=== PATIENT | male | born 1960 | race Caucasian/White ===

== ENCOUNTER 2017-03-04 06:33 | Inpatient (IN) ==
[~2017-03-04 06:33] MED LIST: ASPIRIN 325 MG TABLET PO ONE; DIAZEPAM 5 MG TABLET PO ONE; MAGNESIUM SULF RIDER 2 GM in PREMIX 1 EACH IV PRN; POTASSIUM CHLORIDE RIDER 10 MEQ in PREMIX 1 EACH IV PRN; diphenhydrAMINE CAP 25 MG CAPSULE PO ONE
--- NOTE | 2017-03-04 07:14 | Event Note ---
Patient with anginal quality symptomatology of chest pain radiating to his neck and arm. Please see my full H&P done within the last 7 days. The patient is now for cardiac catheterization with possible percutaneous coronary mentioned. Our plan will be to approach the right radial. I again discussed this procedure with the patient and his reviewing the indications as well as how the procedure be carried out the risk. I discussed cardiac catheterization and percutaneous coronary intervention with the patient and available family. I reviewed with them the indications for the procedure and the basis of how the procedure would be carried out. I also reviewed with them the risk of the procedure which include but not necessarily limited to access site bleeding, bruising, pain, swelling or vascular injury that may require emergency vascular surgery, blood transfusion, or thrombin injection. Also discussed the possibility of stroke, myocardial infarction, arrhythmia which may require electrocardioversion, and the possibility of dye reaction that would require medical therapy. Also discussed the possibility of coronary artery injury, ruptured, closure or perforation that may require emergency bypass surgery. We also discussed the possibility of from a major complication. All questions were answered. They voice understanding and agree to proceed.
--- NOTE | 2017-03-04 07:16 | History and Physical Update ---
Sedation H&P Update - History and Physical H&P was reviewed, the patient examined and there: are no changes in the patients condition since last H&P was completed. - Dictation Physical: refer to scanned H&P - Physical Exam Mental Status: alert and oriented Heart: regular rate and rhythm Lung: clear to auscultation Abdomen: within normal limits Vitals: within normal limits History and Physical Changes: None - Sedation Plan for Sedation: moderate Patient Consent: Procedure disscussed with patient and patinet has consented., Risks and benefits were discussed with patient,including infection,, bleeding, injury to surrounding structures, seizure, temporary nerve, Patient understands and accepts potential risks/benefits and agrees to, proceed. ASA Class: III Airway Assessment: Class III: Soft palate, base of uvula visible
[2017-03-04] MEDS ORDERED: diphenhydrAMINE CAP 25 MG CAPSULE ONE (07:24)
[2017-03-04] MEDS ORDERED: ASPIRIN 325 MG TABLET ONE (07:24)
[2017-03-04] MEDS ORDERED: DIAZEPAM 5 MG TABLET ONE (07:25)
[2017-03-04] MEDS: SODIUM CHLORIDE 0.9% 1,000 ML IV SCH ×4 (07:28→23:42)
--- NOTE | 2017-03-04 07:55 | XRay Report ---
Exam: XR chest 1V portable Date: 03/04/2017 6:07 AM Indication: Respiratory preop evaluation left heart catheterization Comparison: None Technical: AP portable Findings: The heart, lungs, mediastinum and bony structures reveal no acute findings. Small calcification left base measures possibly 3.5 mm suggesting granuloma change. Impression: 1. Small granuloma left lung base 2. No other abnormalities noted at this time PROCEDURE INTERPRETED AT [facility] DEPARTMENT OF RADIOLOGY Final Report Signed by: Dr. Ancelmo Ortiz
[2017-03-04] MEDS ORDERED: LIDOCAINE 1% 20 ML VIAL ONE (08:02)
[2017-03-04] MEDS ORDERED: VERAPAMIL 5 MG/2 ML VIAL ONE (08:02)
[2017-03-04] MEDS ORDERED: MIDAZOLAM 2 MG/2 ML VIAL ONE (08:02)
[2017-03-04] MEDS ORDERED: fentaNYL 100 MCG/2 ML VIAL ONE (08:02)
[2017-03-04] MEDS ORDERED: NITROGLYCERIN DRIP 50 MG/250 ML BOTTLE IV ONE (08:02)
[2017-03-04] MEDS ORDERED: ENOXAPARIN 30 MG/0.3 ML SYRINGE ONE (08:22)
[2017-03-04] MEDS ORDERED: ONDANSETRON 4 MG/2 ML VIAL IV PRN (08:48)
[2017-03-04] MEDS ORDERED: NITROGLYCERIN SL 0.4 MG TABLET SL PRN (08:48)
[2017-03-04] MEDS ORDERED: ZALEPLON 5 MG CAPSULE PO PRN (08:48)
--- NOTE | 2017-03-04 08:48 | Operative Note ---
Date of procedure: 03/04/17 Procedure Preformed: Left heart catheterization with LV angiogram, coronary angiography right radial approach. Surgeon / Physician: Sheng Goodman Nuclear Logging Engineer: Amilcar Cantu Post-op diagnosis: same Findings: Left main stenosis greater than 60%, 90+% stenosis of the RCA. Please see full report for details. Specimens: none sent Estimated blood loss: minimal Condition: stable Anesthesia: local, conscious sedation Disposition: floor
[2017-03-04] MEDS: ASPIRIN EC 81 MG TABLET PO SCH (09:27)
[2017-03-04] MEDS ORDERED: GLUCAGON 1 MG VIAL IM PRN (10:07)
[2017-03-04] MEDS ORDERED: DEXTROSE 50% 25 GM/50 ML VIAL IV PRN (10:07)
--- NOTE | 2017-03-04 10:07 | Cardiothoracic Progress Note ---
Cardiothoracic Subjective Interval history: Patient is a 57-year-old man who had been well until about 4 weeks ago when he began having episodes of exertional chest pain. He was scheduled for an outpatient catheterization which was performed this morning and demonstrated critical three-vessel coronary disease. Patient was advised to have bypass surgery. I have reviewed the films and discussed the situation at length with the patient and his and I think they understand the situation and agree with bypass surgery is the best option. I scheduled him for surgery Thursday morning. He is to remain in the hospital until that time. Exam (Progress Note) - Constitutional Vitals: Period Temp Pulse Resp BP Sys/Schmitt Pulse Ox Last 24 Hr 97 F-97.9 F 58-63 16-18 136-186/81-88 98 Quality Measures - VTE Contraindication to Pharmacological VTE Prophylaxis: High Risk of Bleeding Specialty Discharge - Follow Up or Referrals
[2017-03-04] MEDS: CARVEDILOL 6.25 MG TABLET PO SCH ×2 (10:25→21:01)
[2017-03-04] MEDS: PANTOPRAZOLE 40 MG TABLET PO SCH (10:25)
--- NOTE | 2017-03-04 11:17 | Cardiac Catheterization ---
Date of Procedure:: 03/04/17 Pre-op Diagnosis: Exertional angina, coronary disease. Post-op diagnosis: same Procedure: LEFT HEART CATHETERIZATION History: 57-year-old man who has anginal quality symptomatology especially with exertion. Pre-Op diagnosis: Exertional angina, coronary disease. Postoperative diagnosis: High-grade multivessel coronary artery disease. Procedures: 1. Left heart catheterization. 2. Left ventricular angiogram. 3. Selective left and right coronary angiograms. 4. Left internal mammary artery angiogram but not well visualized. Equipment: Terumo 6 British radial glide arterial sheath, Terumo 6 British radial TIG 4.0 diagnostic. Large TR band. Medications: Preoperative Benadryl and Valium given by mouth. Lidocaine 1% local anesthesia 1 mls administered by myself. Intraprocedure patient received Versed 2 mgs IVP, fentanyl 100 mcgs IVP, Verapamil 5 mg/NTG 200 mcg in 5 ml NS. Complications: None immediate. Contrast: Omnipaque 125 milliliters. Description of procedure: After informed consent the patient was given preoperative medications and brought to the catheterization laboratory where their right groin and right anterior wrist and forearm was prepped and draped in usual fashion. IV sedation was then obtained after which local anesthesia with lidocaine was administered over the right radial artery. Using the double wall needle the radial artery was cannulated. Microguidewire was advanced through the cannula into the radial artery. We exchanged for the radial artery sheath that was advanced over the microguidewire. Guidewire was removed. The diagnostic 6 British TIG 4.0 catheter was advanced and used to cross the aortic valve and left ventricular pressures were measured with LVEDP. Left ventricular angiogram was then obtained in the right oblique view. Pressures were again measured in the left ventricle with pullback pressures were then measured in the aortic root. This same catheter was then used to cannulate the left and then right coronary arteries of which angiograms were obtained of each of these vessels in multiple projections. The angiograms were then reviewed. We attempted to do a flush left subclavian angiogram to see the left internal mammary artery but this was minimally visualized. The diagnostic catheter was then removed over the guidewire. The TR band was then placed in the usual fashion and hemostasis obtained. Hemodynamic data: LV 123/3, EDP 20; post angio LV 109/16 , EDP 24 ; AO root 101/68, mean 84. Left ventricular angiogram: Left ventricle overall with normal ejection fraction and function. Ejection fraction 60+%. No specific segmental wall motion normality is noted. No significant mitral regurgitation noted. Left main coronary artery angiogram: Left main coronary is a large caliber vessel that bifurcates in the LAD and circumflex arteries. This vessel is calcified. It has a high-grade 70% distal stenosis right at the bifurcation. This disease appears to involve the ostium of the LAD and circumflex arteries. Left anterior descending artery angiogram: Diffuse calcification especially proximally. The first diagonal is a medium caliber vessel with the second diagonal be small medium caliber vessel. The ostial LAD is probably involving the left main disease and is significant. There is luminal irregularities but less than 30% stenosis in the mid LAD. Circumflex artery angiogram: Circumflex artery proximal is a large caliber vessel. First obtuse marginal branch is a relatively medium large size vessel, larger myocardium. The second obtuse marginal branch is a medium caliber vessel. Obtuse marginal branches beyond this are small-caliber vessels. Significant size atrial branches are noted. There is some proximal calcification. The ostial portion of the circumflex artery is probably involved in the left main distal stenosis. Right coronary artery angiogram: RCA is a medium caliber dominant vessel. It gives rise to was a medium caliber PDA and a small medium caliber posterior lateral branches. The AV node artery has a takeoff the distal RCA. There is diffuse calcification in the proximal mid RCA. Left internal mammary artery angiogram: Left internal mammary is minimally visualized but approximately appears to be a significant size vessel. There is a proximal 90% stenosis and a mid stenosis of greater than 95%. Should be noted there are left to right collaterals to the PDA and posterior lateral branches. Impression: 1. Left ventricle is normal size and systolic function being 60+% ejection fraction. 2. LVEDP is mildly elevated at 20 mmHg. 3. At worse mild gradient across the aortic valve. 4. No significant mitral regurgitation demonstrated. 5. Right coronary artery is dominant with high-grade 90% proximal stenosis and a mid stenosis of greater than 95%. There is diffuse calcification 6. Left main coronary artery calcification and is large but with a distal 70% stenosis involving the bifurcation into the LAD and circumflex arteries. 7. LAD was some proximal mid calcification. There is some diffuse luminal irregularities but the ostium of the LAD is involved in the left main coronary disease. It is significant and probably 50+% stenosis. 8. Circumflex artery with some proximal calcification and is widely patent with the exception of the ostium which appears to be involved in the left main coronary artery disease. 9. EPSTEIN is patent proximally. His overall is not well visualized. Discussion: This patient need to be monitored post procedure. He will also need to be monitored for risk factor modification for his coronary disease. At this time though he needs to be evaluated for coronary bypass surgery with his high-grade coronary artery disease especially involving his left main coronary. CV surgery will be consulted for this. This was discussed with the patient and . Implants: None Anesthesia: local, moderate conscious sedation Surgeon / Physician: Sheng Goodman General Education Instructor: other (Aimlcar Cantu RN) Estimated blood loss: minimal Specimens: none sent Condition: stable Disposition: floor - Medications / Follow-up
--- NOTE | 2017-03-04 11:38 | Event Note ---
Patient doing well post cardiac catheterization. I discussed his catheterization findings with he and his reviewing the pictures I had printed off for them. Discussed the need for his bypass surgery and they are agreeable and understand. He will remain in the hospital because of his high risk of acute devastating infarction.
--- NOTE | 2017-03-04 15:19 | EKG Report ---
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
--- NOTE | 2017-03-04 16:23 | Sleep Medicine Consult ---
Assessment and Plan (1) Unspecified sleep apnea Status: Acute Assessment and plan: Mr. Matt has symptoms such as excessive daytime fatigue and sleepiness with an elevated [place] sleepiness score of 18 as well as a history of snoring that is loud and disruptive during his sleep. On physical exam he had a Mallampati class III exam and increased neck circumference of 18.5 inches. I discussed obstructive sleep apnea as well as the testing and treatments that are recommended. Also reviewed the correlation of underlying heart disease and untreated or undiagnosed sleep disorders, specifically obstructive sleep apnea. He verbalized understanding. He is scheduled to undergo coronary artery bypass grafting on Thursday. I recommend that he undergo sleep evaluation prior to his procedure. I will order a HSAT for tonight to determine if he is positive for obstructive sleep apnea. He verbalized understanding and wishes to proceed. Also of note, his daily alcohol consumption could be a contributing factor in his sleep and increases his likelihood of a sleep related disorders. Current Visit: Yes History of Present Illness Chief complaint: Fatigue and Sleepiness Daily History of present illness: Mr. Matt is a 57 year old male who was admitted for outpatient cardiac catheterization earlier today. He was found to have severe three-vessel cardiac disease and will require coronary artery bypass grafting scheduled for this Thursday. A sleep consult was requested by his music instructor to rule out underlying sleep disorders. He did have a positive screening for sleep disorders including a positive stop bang questionnaire and an elevated [place] sleepiness score of 18. He is alert sitting upright in bed following his heart catheterization. He is alone but states he is and has one daughter who is 26. He reports being a very "healthy" person and "does not go to the doctor ". He denies any significant medical history or daily medications prior to this admission. It took approximately 4 weeks of chest discomfort to get him to the emergency room. 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 In regards to sleep, he first denied any history of snoring but later stated that his "elbows" him frequently during sleep. He has never been told that his breathing was irregular during sleep. He goes to bed around 11:30 nightly and awakens around 7 or 8am. He feels non-refreshed most mornings. Due to his busy work schedule , he is unable to take daytime naps. He does experience drowsiness especially while sitting still. Throughout the night, he does have frequent sleep disruption for unknown reasons. He urinates up to 2 or 3 times per night. He does have some discomfort in his left leg specifically and has to move it frequently for symptom relief. He has a long history of snoring but quit smoking around 2004 following his 's breast cancer diagnosis. He does admit to daily alcohol use drinking between 6 and 12 cans of beer nightly. He often has a cocktail or whiskey along with his beer. He is optimistic about his upcoming heart surgery and is ready to feel better. Home Medications Medication Instructions Recorded Confirmed Type Aspirin EC Tab 81 mg PO DAILY 03/04/17 03/04/17 History Allergies Allergy/AdvReac Type Severity Reaction Status Date / Time No Known Allergies Allergy Verified 03/04/17 07:05 - Constitutional Constitutional: Present: daytime sleepiness, fatigue. Absent: night sweats, stops breathing during sleep - EENT Nose, mouth and throat: Absent: headache(s), nasal congestion - Cardiovascular Cardiovascular: Present: chest pain with activity, radiating jaw, neck or arm pain. Absent: dyspnea on exertion, palpitations - Respiratory Respiratory: Present: snoring. Absent: cough, dyspnea, wheezing - Gastrointestinal Gastrointestinal: Absent: abdominal pain, bloating, change in bowel habits, heartburn, nausea - Genitourinary Genitourinary: Present: urinary frequency (2-3 times per night) - Musculoskeletal Musculoskeletal: Absent: arthralgias, joint swelling, muscle weakness - Neurological Neurological: Absent: behavioral changes, syncope - Psychiatric Psychiatric: Absent: anxiety, depression - Endocrine Endocrine: Absent: cold intolerance, heat intolerance Exam (Pulmonay) H&P - Constitutional Vitals: Period Temp Pulse Resp BP Sys/Schmitt Pulse Ox Last 24 Hr 97 F-97.9 F 57-65 16-20 129-186/80-93 98 General appearance: normal weight - Head Head exam: Present: normocephalic, atraumatic - Eye Pupils: Present: TERESA - ENT ENT exam: Present: other (Mallampati class III) - Expanded ENT Exam ENT Exam Mouth exam: Present: moist Throat exam: Absent: post pharyngeal edema, post pharyngeal erythema - Neck Neck exam: Absent: lymphadenopathy, thyromegaly - Respiratory Respiratory exam: Present: clear to auscultation bilaterally. Absent: rales, rhonchi, wheezes - Cardiovascular Cardiovascular exam: Present: regular rate and rhythm - GI/Abdominal GI/Abdominal exam: Present: normal bowel sounds. Absent: distended, organomegaly, tenderness - Extremities Exam Extremities exam: Present: normal capillary refill, full ROM. Absent: edema - Neurological Exam Neurological exam: Present: alert, oriented X3 - Psychiatric Psychiatric exam: Present: normal affect, normal mood - Skin Skin exam: Present: warm, dry Medical,Surgical,& Family Hx - Medical History Cardio: History of: CAD, Hypertension Neurology: No history of: Seizures Endocrine: History of: Dyslipidemia - Surgical History Cardiac Surgeries: Sugical HX of: Cardiac Catheterization Abdominal Surgeries: Surgical HX of: Hernia Repair - Family History Family History: Reports;: Family Diabetes - Social History Smoking Status: Former smoker Frequency of Alcohol Use: Frequently (reports drinking between 6-12 cans of beer daily) Type of Drug Use: None Marital Status: Lives With:: Children Quality Measures - VTE Contraindication to Pharmacological VTE Prophylaxis: High Risk of Bleeding Specialty Discharge - Follow Up or Referrals
[2017-03-04] MEDS: ATORVASTATIN 40 MG TABLET PO SCH (21:01)
[2017-03-05] MEDS: CHLORHEXIDINE 0.12% ORAL RINSE 60 ML BOTTLE SWISH/SPIT SCH ×3 (02:49→20:31)
[2017-03-05 03:46] LABS: ABG Base Excess 0.5 MMOL/L (-2.5-2.5); ABG HCO3 24.8 MMOL/L (20-26); ABG Oxygen Saturation 96.1 % (95-100); ABG PCO2 38.5 MM HG (35-48); ABG PH 7.426 (7.35-7.45); ABG PO2 84.3 MM HG (80-95); ABG TCO2 25.9 MMOL/L (23-27); Allen Test Positive; Pt O2 Delivery Device Room Air
[2017-03-05 06:07] LABS: Basophils # 0.1 10*3/uL (0.0-0.2); Basophils % 0.7 % (0.0-0.8); Eosinophils # 0.3 10*3/uL (0.0-0.87); Eosinophils % 4.1 % (0.00-10.9); Hematocrit 35.7 VOL% (42.0-52.0); Hemoglobin 12.5 GM/DL (14.0-18.0); Immature Granulocytes % 0.3 %; Immature Granulocytes Absolute 0.02 #; Lymphocytes # 1.8 10*3/uL (1.4-4.0); Lymphocytes % 24.9 % (21.2-54.2); Mean Corpuscular Hemoglobin 32 PG (27-34); Mean Corpuscular Volume 91.3 FL (87-102); Mean Platelet Volume 9.8 FL (9.6-12.0); Monocytes # 0.7 10*3/uL (0.11-0.8); Monocytes % 10.2 % (1.7-12.7); Neutrophils # 4.2 10*3/uL (1.4-7.4); Neutrophils % 59.8 % (38.7-73.9); Platelet Count 221 T/CUMM (130-400); Red Blood Count 3.91 MC/CUMM (3.8-5.5); Red Cell Distribution Width 11.7 % (9.3-17.3)
[2017-03-05 06:39] LABS: Calcium 8.2 MG/DL (8.5-10.1); Magnesium 2.3 MG/DL (1.8-2.4); Osmolality,Calculated 281.1 MOS/KG (273-304); Potassium 3.9 MMOL/L (3.5-5.1)
[2017-03-05 06:40] LABS: Albumin 2.9 G/DL (3.4-5.0); Bilirubin,Total 0.5 MG/DL (0.2-1.0); Calcium 8.7 MG/DL (8.5-10.1); Potassium 3.9 MMOL/L (3.5-5.1); Risk Ratio 2.94; Total Protein 5.9 G/DL (6.4-8.3); VLDL CHOLESTEROL 16.6 MG/DL
--- NOTE | 2017-03-05 07:21 | EKG Report ---
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
[2017-03-05] MEDS: SODIUM CHLORIDE 0.9% 1,000 ML IV SCH ×2 (07:31→10:35)
--- NOTE | 2017-03-05 07:46 | XRay Report ---
Exam: XR chest 2V Date: 03/05/2017 4:00 AM Indication: Coronary artery disease Comparison: 03/04/2017 Technical: PA lateral Findings: External cardiac leads are present. The heart, lungs, mediastinum and bony structures are intact. Impression: 1. No acute cardiopulmonary pathology PROCEDURE INTERPRETED AT [facility] DEPARTMENT OF RADIOLOGY Final Report Signed by: Dr. Ancelmo Ortiz
--- NOTE | 2017-03-05 08:29 | Cardiology Progress Note ---
Cardiology - PN: Subj Interval history: Cardiology note 57-year-old man with severe left main and RCA disease by cath yesterday. Ejection fraction 60%. No pain. Telemetry benign. Right radial pulse 2+ without hematoma Regular rhythm no murmur or gallop Clear lungs Abdomen benign Lab data today White count 7.0 hemoglobin 12.5 hematocrit 35.7 Sodium 142 potassium 3.9 chloride 110 CO2 24 BUN 13 creatinine 0.60 glucose 87 Impression Severe three-vessel CAD involving left main, LAD and right coronary with EF 60% Hyperlipidemia Obesity Obstructive sleep apnea suspected Plan Lipitor 40 mg daily Coreg 6.25 mg twice daily Aspirin 81 mg daily Protonix Sleep study evaluation CABG tomorrow Exam (Progress Note) - Constitutional Vitals: Period Temp Pulse Resp BP Sys/Schmitt Pulse Ox Last 24 Hr 97.0 F-98.0 F 57-65 18-20 127-152/72-93 92-97 Result/EKG - Labs CBC & BMP: 03/05/17 05:12 03/05/17 05:12 Labs: Laboratory Results - last 24 hr 03/05/17 03/05/17 03/05/17 03:35 05:12 05:12 WBC 7.0 RBC 3.91 Hgb 12.5 L Hct 35.7 L MCV 91.3 MCH 32 MCHC 35.0 RDW 11.7 Plt Count 221 MPV 9.8 Neut % (Auto) 59.8 Lymph % (Auto) 24.9 [place] % (Auto) 10.2 Eos % (Auto) 4.1 Baso % (Auto) 0.7 Neut # (Auto) 4.2 Lymph # (Auto) 1.8 [place] # (Auto) 0.7 Eos # (Auto) 0.3 Baso # (Auto) 0.1 Immature Gran % 0.3 Nucleated RBC % 0.0 Immature Gran # 0.02 Nucleated RBCs # 0.00 ABG pH 7.426 ABG pCO2 38.5 ABG pO2 84.3 ABG HCO3 24.8 ABG Total CO2 25.9 ABG O2 Saturation 96.1 ABG Base Excess 0.5 FiO2 21.00 Sodium Potassium Chloride Carbon Dioxide Anion Gap BUN Creatinine GFR Calculation BUN/Creatinine Ratio Glucose Calculated Osmolality Calcium Magnesium Total Bilirubin AST ALT Alkaline Phosphatase Total Protein Albumin Globulin Albumin/Globulin Ratio Triglycerides 83 Cholesterol 159 LDL Cholesterol 82.0 VLDL Cholesterol 16.6 HDL Cholesterol 54 Heart Disease Risk Ratio 2.94 Blood Type Antibody Screen Crossmatch 03/05/17 03/05/17 03/05/17 05:12 05:12 05:12 WBC RBC Hgb Hct MCV MCH MCHC RDW Plt Count MPV Neut % (Auto) Lymph % (Auto) [place] % (Auto) Eos % (Auto) Baso % (Auto) Neut # (Auto) Lymph # (Auto) [place] # (Auto) Eos # (Auto) Baso # (Auto) Immature Gran % Nucleated RBC % Immature Gran # Nucleated RBCs # ABG pH ABG pCO2 ABG pO2 ABG HCO3 ABG Total CO2 ABG O2 Saturation ABG Base Excess FiO2 Sodium 143 142 Potassium 3.9 3.9 Chloride 109 H 110 H Carbon Dioxide 25 24 Anion Gap 12.9 11.9 BUN 13 13 Creatinine 0.50 L 0.60 L GFR Calculation 159 148 BUN/Creatinine Ratio 26.00 H 21.00 H Glucose 89 87 Calculated Osmolality 283.0 281.1 Calcium 8.7 8.2 L Magnesium 2.3 Total Bilirubin 0.50 AST 13 ALT 20 Alkaline Phosphatase 66 Total Protein 5.9 L Albumin 2.9 L Globulin 3.0 Albumin/Globulin Ratio 0.9 L Triglycerides Cholesterol LDL Cholesterol VLDL Cholesterol HDL Cholesterol Heart Disease Risk Ratio Blood Type O NEGATIVE Antibody Screen Negative Crossmatch See Detail 03/05/17 Unknown WBC RBC Hgb Hct MCV MCH MCHC RDW Plt Count MPV Neut % (Auto) Lymph % (Auto) [place] % (Auto) Eos % (Auto) Baso % (Auto) Neut # (Auto) Lymph # (Auto) [place] # (Auto) Eos # (Auto) Baso # (Auto) Immature Gran % Nucleated RBC % Immature Gran # Nucleated RBCs # ABG pH ABG pCO2 ABG pO2 ABG HCO3 ABG Total CO2 ABG O2 Saturation ABG Base Excess FiO2 Sodium Potassium Chloride Carbon Dioxide Anion Gap BUN Creatinine GFR Calculation BUN/Creatinine Ratio Glucose Calculated Osmolality Calcium Magnesium Total Bilirubin AST ALT Alkaline Phosphatase Total Protein Albumin Globulin Albumin/Globulin Ratio Triglycerides Cholesterol LDL Cholesterol VLDL Cholesterol HDL Cholesterol Heart Disease Risk Ratio Blood Type O NEGATIVE Antibody Screen Crossmatch Quality Measures - VTE Contraindication to Pharmacological VTE Prophylaxis: High Risk of Bleeding Specialty Discharge - Follow Up or Referrals
[2017-03-05] MEDS: CARVEDILOL 6.25 MG TABLET PO SCH ×2 (09:17→20:30)
[2017-03-05] MEDS: ASPIRIN EC 81 MG TABLET PO SCH (09:17)
[2017-03-05] MEDS: PANTOPRAZOLE 40 MG TABLET PO SCH (09:17)
[2017-03-05] MEDS ORDERED: CEFUROXIME INJ 1,500 MG in SODIUM CHLORIDE 0.9% 100 ML IV ONE (10:07)
[2017-03-05] MEDS: CHLORHEXIDINE 4% SOLN 118 ML BOTTLE TOP SCH ×2 (16:10→20:32)
[2017-03-05] MEDS: ATORVASTATIN 40 MG TABLET PO SCH (20:30)
[2017-03-06] MEDS ORDERED: TISSUE ADHESIVE 1 EACH APPLICATOR TOP ONE (04:44)
[2017-03-06] MEDS ORDERED: PAPAVERINE 60 MG/2 ML VIAL ONE (04:44)
[2017-03-06] MEDS ORDERED: VANCOMYCIN 1,000 MG VIAL ONE (04:45)
[2017-03-06] MEDS ORDERED: LORazepam 1 MG TABLET PO ONE ×2 (05:00→05:30)
[2017-03-06] MEDS ORDERED: FAMOTIDINE 20 MG TABLET PO ONE ×2 (05:00→05:30)
[2017-03-06] MEDS ORDERED: CEFUROXIME INJ 1,500 MG in SODIUM CHLORIDE 0.9% 100 ML IV ONE ×2 (05:00→06:00)
[2017-03-06] MEDS: PANTOPRAZOLE 40 MG TABLET PO SCH ×2 (05:11→09:00)
[2017-03-06] MEDS: CARVEDILOL 6.25 MG TABLET PO SCH ×3 (05:11→21:18)
[2017-03-06 07:26] LABS: ABG Base Excess -0.6 MMOL/L (-2.5-2.5); ABG Oxygen Saturation 98.6 % (95-100); ABG PH 7.455 (7.35-7.45); ABG TCO2 19.7 MMOL/L (23-27); Glucose Heart Surgery 110 MG/DL (74-106); Hematocrit Heart Surgery 38.5 PERCENT (42-52); Hemoglobin Heart Surgery 12.5 G/DL (14.0-18.0); Ionized Calcium Arterial 1.17 MMOL/L (1.21-1.46); PH Patient Temp Arterial 7.455; Patient Temperature 37 CELCIUS; Potassium Heart/CVR 3.7 MMOL/L (3.5-5.1); Sodium Heart/CVR 136 MMOL/L (135-145)
[2017-03-06 07:32] LABS: Apearance,Urine CLEAR (Clear); Bilirubin,Urine Negative (Negative); Blood, Urine Negative (Negative); Glucose,Urine (UA) Negative (Negative); Ketones,Urine 5 mg/dL (Negative); Mucus,Urine Occasional /LPF (Occasional); Nitrite,Urine Negative (Negative); Protein,Urine Negative; RBC,Urine 1 /HPF (0-4); Urine Color Yellow (Yellow); Urine Specific Gravity 1.017 (1.001-1.035); Urine Urobilinogen < 2.0 EU/DL (0.2-1.0); WBC,Urine 3 /HPF (0-6)
--- NOTE | 2017-03-06 08:17 | Anesthesia Procedures ---
Anesthesia Procedures - Central Venous Insert Monitors Applied: pulse oximetry, EKG, BP cuff, oxygen via MSBT: pulse oximetry, EKG, BP cuff, oxygen via Procedure: after sterile technique was performed as outlined above, , ultrasound guidance was used to identify vessel, 18G introducer needle was passed into vessel under direct visualizatio, triple lumen catheter was passed over guidewire without difficulty, catheter sutured into place and the ports flushed with NS/hepflush, sterlie dressing applied including the antibiotic disc , vital signs were stable throughout procedure, no apparent complications were noted (skin prept with chloraprep) Ultrasound used: identify patency vessel, visualize needle entry to vessel Vein Cannulated: right internal juglar
[2017-03-06 08:43] LABS: Hematocrit Heart Surgery 27.2 PERCENT (42-52); Hemoglobin Heart Surgery 8.7 G/DL (14.0-18.0); PH Patient Temp Venous 7.462; PO2 Patient Temp Venous 35.5 MM HG; Potassium Heart/CVR 4.1 MMOL/L (3.5-5.1); VBG Base Excess 1.5 MEQ/L (0-4); VBG HCO3 25.4 MEQ/L (24-28); VBG Oxygen Saturation 77.4 %; VBG PCO2 38.6 MMHG (41-51); VBG PH 7.432; VBG PO2 40.8 MMHG (17-40)
[2017-03-06] MEDS ORDERED: NITROPRUSSIDE 50 MG/2 ML VIAL ONE (08:45)
[2017-03-06] MEDS ORDERED: POTASSIUM CHLORIDE RIDER 100 ML IV ONE (08:45)
[2017-03-06] MEDS ORDERED: PHENYLEPHRINE DRIP 40 MG/250 ML PREMIX IV ONE (08:45)
[2017-03-06] MEDS ORDERED: CALCIUM CHLORIDE 1,000 MG/10 ML SYRINGE IV ONE (08:45)
[2017-03-06] MEDS: CHLORHEXIDINE 0.12% ORAL RINSE 60 ML BOTTLE SWISH/SPIT SCH ×3 (09:00→21:06)
[2017-03-06] MEDS: CHLORHEXIDINE 4% SOLN 118 ML BOTTLE TOP SCH (09:00)
[2017-03-06] MEDS: ASPIRIN EC 81 MG TABLET PO SCH (09:00)
[2017-03-06 09:27] LABS: Hematocrit Heart Surgery 33.9 PERCENT (42-52); PCO2 Patient Temp Venous 34.4 MM HG; PH Patient Temp Venous 7.46; PO2 Patient Temp Venous 34.4 MM HG; Potassium Heart/CVR 3.7 MMOL/L (3.5-5.1); VBG Base Excess 1.1 MEQ/L (0-4); VBG Oxygen Saturation 77.6 %; VBG PCO2 39.8 MMHG (41-51); VBG PH 7.416; VBG PO2 42.5 MMHG (17-40)
[2017-03-06 10:04] LABS: ABG Base Excess 0.5 MMOL/L (-2.5-2.5); ABG HCO3 22.8 MMOL/L (20-26); ABG Oxygen Saturation 98.2 % (95-100); ABG PH 7.513 (7.35-7.45); ABG PO2 227.5 MM HG (80-95); ABG TCO2 23.7 MMOL/L (23-27); Glucose Heart Surgery 148 MG/DL (74-106); Hemoglobin Heart Surgery 10.5 G/DL (14.0-18.0); Ionized Calcium Arterial 1.34 MMOL/L (1.21-1.46); PH Patient Temp Arterial 7.513; PO2 Patient Temp Arterial 227.5 MM HG; Patient Temperature 37 CELCIUS; Potassium Heart/CVR 3.8 MMOL/L (3.5-5.1); Sodium Heart/CVR 136 MMOL/L (135-145)
[2017-03-06] MEDS ORDERED: DEXTROSE 5% KCL 20 MEQ 20 MEQ/1,000 ML BAG IV ONE (10:15)
[2017-03-06] MEDS ORDERED: PHENYLEPHRINE DRIP 20 MG/250 ML PREMIX IV ONE (10:15)
[2017-03-06] MEDS ORDERED: MAGNESIUM SULFATE 1 GM/2 ML VIAL ONE (10:15)
[2017-03-06] MEDS ORDERED: methylPREDNISolone SOD SUC 1,000 MG/8 ML VIAL ONE (10:15)
[2017-03-06] MEDS ORDERED: PROTAMINE SULFATE 250 MG/25 ML VIAL IV ONE (10:15)
[2017-03-06] MEDS ORDERED: HEPARIN 10,000 UNIT/10 ML VIAL ONE (10:15)
[2017-03-06] MEDS ORDERED: SODIUM BICARBONATE 50 MEQ/50 ML SYRINGE IV ONE (10:15)
[2017-03-06] MEDS ORDERED: PROTAMINE SULFATE 50 MG/5 ML VIAL IV ONE ×3 (10:16→11:10)
[2017-03-06] MEDS ORDERED: POTASSIUM CHLORIDE 20 MEQ/10 ML VIAL ONE (10:16)
[2017-03-06] MEDS ORDERED: FUROSEMIDE 20 MG/2 ML VIAL ONE (10:16)
[2017-03-06] MEDS ORDERED: MANNITOL 12.5 GM/50 ML VIAL IV ONE (10:16)
[2017-03-06] MEDS: SODIUM CHLORIDE 0.9% 1,000 ML IV SCH (10:30)
[2017-03-06] MEDS ORDERED: MIDAZOLAM 2 MG/2 ML VIAL IV PRN (10:56)
[2017-03-06] MEDS ORDERED: CALCIUM CHLORIDE 1,000 MG/10 ML SYRINGE IV PRN (10:56)
[2017-03-06] MEDS ORDERED: MAGNESIUM SULF RIDER 4 GM in PREMIX 1 EACH IV PRN (10:56)
[2017-03-06] MEDS ORDERED: VECURONIUM 10 MG VIAL IV PRN ×2 (10:56)
[2017-03-06] MEDS ORDERED: ACETAMINOPHEN 650 MG SUPP RECTAL PRN (10:56)
[2017-03-06] MEDS ORDERED: MORPHINE 2 MG/1 ML SYRINGE IV PRN (10:56)
[2017-03-06] MEDS ORDERED: MORPHINE 10 MG/1 ML VIAL IV PRN (10:56)
[2017-03-06] MEDS ORDERED: LACTATED RINGERS 250 ML IV PRN (10:56)
[2017-03-06] MEDS ORDERED: MIDAZOLAM 10 MG/2 ML VIAL IV PRN (10:56)
[2017-03-06] MEDS ORDERED: INSULIN REGULAR 100 UNIT/ML IV ONE ×2 (10:56→11:30)
[2017-03-06] MEDS ORDERED: ONDANSETRON 4 MG/2 ML VIAL IV PRN (10:56)
[2017-03-06] MEDS ORDERED: POTASSIUM CHLORIDE RIDER 10 MEQ in PREMIX 1 EACH IV PRN (10:56)
[2017-03-06] MEDS ORDERED: INSULIN REGULAR 100 UNIT/ML IV PRN (10:56)
[2017-03-06] MEDS ORDERED: NITROPRUSSIDE 100 MG in DEXTROSE 5% 250 ML IV PRN (10:56)
[2017-03-06] MEDS ORDERED: MAGNESIUM SULF RIDER 2 GM in PREMIX 1 EACH IV PRN (10:56)
[2017-03-06] MEDS ORDERED: DEXTROSE 50% 25 GM/50 ML VIAL IV PRN ×2 (10:56)
[2017-03-06] MEDS: INSULIN REGULAR DRIP 100 ML IV SCH (11:00)
[2017-03-06] MEDS: SODIUM CHLORIDE 0.45% 1,000 ML IV SCH ×2 (11:00)
[2017-03-06] MEDS: PHENYLEPHRINE DRIP 40 MG/250 ML PREMIX IV PRN (11:00)
--- NOTE | 2017-03-06 11:02 | Anesthesia Post-Op ---
Anesthesia Post OP - Post Ansesthetic Evaluation Patient seen in post op: Yes Resp: within normal limits (pt remains on vent) CV: within normal limits Mental: within normal limits (pt remains sedate) Temp: within normal limits [id number]-[id number]-[id number]: within normal limits Nausea and Vomiting: within normal limits Pain: within normal limits
--- NOTE | 2017-03-06 11:05 | Operative Note ---
Date of procedure: 03/06/17 Pre-op diagnosis: Coronary artery disease Post-op diagnosis: same Procedure: Procedure: Coronary bypass grafting 3 with saphenous vein graft to the obtuse marginal and right coronary arteries and an internal mammary graft to the anterior descending coronary artery. Findings: Patient is 57-year-old man who presented with substernal chest pain and cardiac catheterization demonstrating critical three-vessel coronary disease. Sinus surgery left ventricular function was noted to be normal and saphenous vein grafts were placed to a large right coronary artery and a large intermediate coronary artery which was free of disease at the site of anastomosis. The anterior descending was grafted with a left internal mammary and the anterior descending had moderate disease at the site of anastomosis. Patient tolerated procedure well was returned to recovery in satisfactory condition. Procedure: Patient was brought to the operating room placed in the operating table in the supine position. After satisfactory induction of general anesthesia the chest abdomen and legs were prepped and draped in sterile fashion and the greater saphenous vein was harvested from the left lower leg and prepared as an arterial graft. Incision in the leg was closed with 3-0 subcutaneous Monocryl and 3-0 subcuticular Monocryl. A standard sternotomy incision was made and the sternum was divided and the heart suspended in a pericardial cradle. Left internal mammary artery was dissected free and prepared as an arterial graft. Patient was prepared for cardiopulmonary bypass with systemic heparinization cannulation of the ascending aorta and right atrium. Cardiopulmonary bypass was begun and the aorta was crossclamped and the heart arrested with cardioplegia solution injected into the aortic root. Heart was protected during the period of crossclamping with topical saline slush. Distal anastomoses were constructed as noted above and then the aorta was unclamped reestablishing cardiac action. Proximal anastomoses were constructed between the inflow ends of the saphenous vein graft in the ascending aorta. Following this the patient was weaned from cardiopulmonary bypass without difficulty and the heparin effect reversed with protamine. Decannulation was carried out in a defects in the ascending aorta and right atrium closed with 3-0 Prolene. The operative field was inspected for hemostasis and this was considered adequate the incision was closed with interrupted stainless steel wire and the sternum and 0 Monopril in the presternal fascia. Skin was closed with subcuticular 3-0 Monocryl. Sterile dressings were applied patient was returned to recovery in satisfactory condition. 2 chest tubes were left in the anterior mediastinum and both were brought out through separate stab incisions. Anesthesia: TANIA Surgeon / Physician: Keith Tuttle Estimated blood loss: other (Unable to determine because of cardiopulmonary bypass) Condition: stable Disposition: ICU Results - Labs CBC & BMP: 03/06/17 10:00 03/05/17 05:12 Discharge Plan - Discharge Medications No Action Aspirin EC Tab 81 mg PO DAILY - Follow Up or Referral - Forms/Instructions Instructions: Left Heart Catheterization (DC), Heart Healthy Diet (GEN), Coronary Intravascular Stent Placement, Regional Project Manager (GEN)
--- NOTE | 2017-03-06 11:08 | Anesthesia Procedures ---
Anesthesia Procedures - Arterial Line Time out performed arterial line: Yes Size (Gauge): 20 Technique used arterial line: guide wire technique Post-Procedure: line sutured into place Patient tolerated procedure arterial line: well Complications art line: none Site: left
[2017-03-06] MEDS ORDERED: SUFentanil 250 MCG/5 ML AMP ONE ×2 (11:09)
[2017-03-06] MEDS ORDERED: SEVOFLURANE 1 UNIT/15 MINUTE INH ONE (11:09)
[2017-03-06] MEDS ORDERED: MIDAZOLAM 10 MG/2 ML VIAL ONE ×2 (11:09→11:10)
[2017-03-06] MEDS ORDERED: AMINOCAPROIC ACID 5,000 MG/20 ML VIAL IV ONE ×2 (11:10→11:23)
[2017-03-06] MEDS ORDERED: CALCIUM CHLORIDE 1,000 MG/10 ML VIAL IV ONE (11:23)
[2017-03-06] MEDS ORDERED: VECURONIUM 10 MG VIAL IV ONE (11:23)
[2017-03-06] MEDS: ALBUMIN 5% 12.5 GM in PREMIX 1 EACH IV PRN ×5 (11:24→16:15)
[2017-03-06 11:26] LABS: ABG HCO3 25.2 MMOL/L (20-26); ABG Oxygen Saturation 94.5 % (95-100); ABG PH 7.461 (7.35-7.45); ABG PO2 68.6 MM HG (80-95); ABG TCO2 21.6 MMOL/L (23-27); Basophils % 0.3 % (0.0-0.8); Eosinophils # 0.3 10*3/uL (0.0-0.87); Eosinophils % 2.9 % (0.00-10.9); Glucose Heart Surgery 122 MG/DL (74-106); Hematocrit 32.5 VOL% (42.0-52.0); Hematocrit Heart Surgery 35.7 PERCENT (42-52); Hemoglobin 11.6 GM/DL (14.0-18.0); Hemoglobin Heart Surgery 11.6 G/DL (14.0-18.0); Immature Granulocytes % 0.5 %; Immature Granulocytes Absolute 0.04 #; Lymphocytes # 2.3 10*3/uL (1.4-4.0); Lymphocytes % 26.4 % (21.2-54.2); Mean Corpuscular HGB Conc 35.7 GM/DL (32-36); Mean Corpuscular Hemoglobin 32 PG (27-34); Mean Corpuscular Volume 89.8 FL (87-102); Mean Platelet Volume 9.5 FL (9.6-12.0); Monocytes # 0.3 10*3/uL (0.11-0.8); Monocytes % 2.9 % (1.7-12.7); Neutrophils # 5.8 10*3/uL (1.4-7.4); Platelet Count 161 T/CUMM (130-400); Potassium Heart/CVR 3.2 MMOL/L (3.5-5.1); Red Blood Count 3.62 MC/CUMM (3.8-5.5); Red Cell Distribution Width 11.4 % (9.3-17.3); White Blood Count 8.7 T/CUMM (4-12)
[2017-03-06 11:39] LABS: INR 1.2; PT Patient Result 13.2 SECS; Partial Thromboplastin Time 29.1 SECS (0-40)
--- NOTE | 2017-03-06 11:57 | Cardiothoracic Progress Note ---
Cardiothoracic Subjective Interval history: [place]-Jennifer catheter placed via the right subclavian vein. Exam (Progress Note) - Constitutional Vitals: Period Temp Pulse Resp BP Sys/Schmitt Pulse Ox Last 24 Hr 97.4 F-98.1 F 59-66 18-20 130-158/74-83 94-98 Result/EKG - Labs CBC & BMP: 03/06/17 10:56 03/05/17 05:12 Labs: Laboratory Results - last 24 hr 03/05/17 03/06/17 03/06/17 05:12 05:10 07:24 WBC RBC Hgb Hct MCV MCH MCHC RDW Plt Count 176 D MPV Neut % (Auto) Lymph % (Auto) [place] % (Auto) Eos % (Auto) Baso % (Auto) Neut # (Auto) Lymph # (Auto) [place] # (Auto) Eos # (Auto) Baso # (Auto) Immature Gran % Nucleated RBC % Immature Gran # Nucleated RBCs # INR PT Patient/Control Mix Circ Anticoag PTT Patient Temperature ABG pH ABG pH at Pt Temp ABG pCO2 ABG pCO2 at Pt Temp ABG pO2 ABG pO2 at Pt Temp ABG HCO3 ABG Total CO2 ABG O2 Saturation ABG Base Excess ABG Sodium VBG pH VBG pCO2 VBG pO2 VBG HCO3 VBG Total CO2 VBG O2 Saturation VBG Base Excess Hemoglobin Hematocrit Potassium Glucose Ionized Calcium FiO2 POC Glucose 101 Venous Ioniz Calcium Urine Color Urine Appearance Urine pH Ur Specific [place] Urine Protein Urine Glucose (UA) Urine Ketones Urine Blood Urine Nitrate Urine Bilirubin Urine Urobilinogen Urine Leukocytes Urine RBC Urine WBC Urine Mucus Ur Culture Indicated? Blood Type O NEGATIVE Antibody Screen Negative Crossmatch See Detail 03/06/17 03/06/17 03/06/17 07:24 07:25 08:40 WBC RBC Hgb Hct MCV MCH MCHC RDW Plt Count MPV Neut % (Auto) Lymph % (Auto) [place] % (Auto) Eos % (Auto) Baso % (Auto) Neut # (Auto) Lymph # (Auto) [place] # (Auto) Eos # (Auto) Baso # (Auto) Immature Gran % Nucleated RBC % Immature Gran # Nucleated RBCs # INR PT Patient/Control Mix Circ Anticoag PTT Patient Temperature 37 35 ABG pH 7.455 H ABG pH at Pt Temp 7.455 7.462 ABG pCO2 32.0 L ABG pCO2 at Pt Temp 32.0 35.0 ABG pO2 378.0 H ABG pO2 at Pt Temp 378.0 35.5 ABG HCO3 24.0 ABG Total CO2 19.7 L ABG O2 Saturation 98.6 ABG Base Excess -0.6 ABG Sodium 136 133 L VBG pH 7.432 VBG pCO2 38.6 L VBG pO2 40.8 H VBG HCO3 25.4 VBG Total CO2 23.8 VBG O2 Saturation 77.4 VBG Base Excess 1.5 Hemoglobin 12.5 L 8.7 L D Hematocrit 38.5 L 27.2 L Potassium 3.7 4.1 Glucose 110 H 286 H Ionized Calcium 1.17 L FiO2 80.00 POC Glucose Venous Ioniz Calcium 1.02 L Urine Color Yellow Urine Appearance Clear Urine pH 5.0 Ur Specific [place] 1.017 Urine Protein Negative Urine Glucose (UA) Negative Urine Ketones 5 Urine Blood Negative Urine Nitrate Negative Urine Bilirubin Negative Urine Urobilinogen < 2.0 H Urine Leukocytes Trace Urine RBC 1 Urine WBC 3 Urine Mucus Occasional Ur Culture Indicated? Not indicated Blood Type Antibody Screen Crossmatch 03/06/17 03/06/17 03/06/17 09:10 10:00 10:00 WBC RBC Hgb Hct MCV MCH MCHC RDW Plt Count 128 L D MPV Neut % (Auto) Lymph % (Auto) [place] % (Auto) Eos % (Auto) Baso % (Auto) Neut # (Auto) Lymph # (Auto) [place] # (Auto) Eos # (Auto) Baso # (Auto) Immature Gran % Nucleated RBC % Immature Gran # Nucleated RBCs # INR PT Patient/Control Mix Circ Anticoag PTT Patient Temperature 34 37 ABG pH 7.513 H ABG pH at Pt Temp 7.460 7.513 ABG pCO2 29.0 L ABG pCO2 at Pt Temp 34.4 29.0 ABG pO2 227.5 H ABG pO2 at Pt Temp 34.4 227.5 ABG HCO3 22.8 ABG Total CO2 23.7 ABG O2 Saturation 98.2 ABG Base Excess 0.5 ABG Sodium 135 136 VBG pH 7.416 VBG pCO2 39.8 L VBG pO2 42.5 H VBG HCO3 25.0 VBG Total CO2 23.0 VBG O2 Saturation 77.6 VBG Base Excess 1.1 Hemoglobin 11.0 L D 10.5 L Hematocrit 33.9 L 31.0 L Potassium 3.7 3.8 Glucose 216 H 148 H Ionized Calcium 1.34 FiO2 80.00 POC Glucose Venous Ioniz Calcium 1.09 L Urine Color Urine Appearance Urine pH Ur Specific [place] Urine Protein Urine Glucose (UA) Urine Ketones Urine Blood Urine Nitrate Urine Bilirubin Urine Urobilinogen Urine Leukocytes Urine RBC Urine WBC Urine Mucus Ur Culture Indicated? Blood Type Antibody Screen Crossmatch 03/06/17 03/06/17 03/06/17 10:56 10:56 10:56 WBC 8.7 RBC 3.62 L Hgb 11.6 L Hct 32.5 L MCV 89.8 MCH 32 MCHC 35.7 RDW 11.4 Plt Count 161 D MPV 9.5 L Neut % (Auto) 67.0 Lymph % (Auto) 26.4 [place] % (Auto) 2.9 Eos % (Auto) 2.9 Baso % (Auto) 0.3 Neut # (Auto) 5.8 Lymph # (Auto) 2.3 [place] # (Auto) 0.3 Eos # (Auto) 0.3 Baso # (Auto) 0.0 Immature Gran % 0.5 Nucleated RBC % 0.0 Immature Gran # 0.04 Nucleated RBCs # 0.00 INR 1.2 PT Patient/Control Mix 13.2 Circ Anticoag PTT 29.1 Patient Temperature ABG pH 7.461 H ABG pH at Pt Temp ABG pCO2 34.0 L ABG pCO2 at Pt Temp ABG pO2 68.6 L ABG pO2 at Pt Temp ABG HCO3 25.2 ABG Total CO2 21.6 L ABG O2 Saturation 94.5 L ABG Base Excess 1.0 ABG Sodium VBG pH VBG pCO2 VBG pO2 VBG HCO3 VBG Total CO2 VBG O2 Saturation VBG Base Excess Hemoglobin 11.6 L Hematocrit 35.7 L Potassium 3.2 L Glucose 122 H Ionized Calcium FiO2 POC Glucose Venous Ioniz Calcium Urine Color Urine Appearance Urine pH Ur Specific [place] Urine Protein Urine Glucose (UA) Urine Ketones Urine Blood Urine Nitrate Urine Bilirubin Urine Urobilinogen Urine Leukocytes Urine RBC Urine WBC Urine Mucus Ur Culture Indicated? Blood Type Antibody Screen Crossmatch Quality Measures - VTE Contraindication to Pharmacological VTE Prophylaxis: High Risk of Bleeding Specialty Discharge - Follow Up or Referrals
[2017-03-06 12:09] LABS: CKMB % 9.6 %
[2017-03-06 12:13] LABS: Troponin I Only 3.06 NG/ML (0.00-0.045)
[2017-03-06 12:13] LABS: Bilirubin,Total 1.3 MG/DL (0.2-1.0); Calcium 9.5 MG/DL (8.5-10.1); Magnesium 2.5 MG/DL (1.8-2.4); Osmolality,Calculated 286.8 MOS/KG (273-304); Potassium 3.3 MMOL/L (3.5-5.1); Total Protein 5.6 G/DL (6.4-8.3)
[2017-03-06] MEDS: POTASSIUM CHLORIDE RIDER 20 MEQ in PREMIX 1 EACH IV PRN ×5 (12:15→23:08)
--- NOTE | 2017-03-06 12:15 | XRay Report ---
Portable chest Date: 03/06/2017 Clinical history: Line placement Comparison: 03/05/2017 Technique: Portable AP sitting chest Findings: Interval median sternotomy with the heart larger in size. The endotracheal tube, nasogastric tube and mediastinal chest tubes appear to be in satisfactory position. Insertion of right IJ CVP with tip at junction of SVC and right atrium. Tip of the right subclavian [place]-Jennifer catheter projects in a pulmonary artery at the level of the right hilum. No evidence of pneumothorax. Progressive atelectasis/edema with diffuse increased density in the left hemithorax consistent with left pleural effusion. Impression: Interval median sternotomy with support devices in satisfactory position. No definite pneumothorax. Progressive atelectasis/edema with left pleural effusion. PROCEDURE INTERPRETED AT [facility] DEPARTMENT OF RADIOLOGY Final Report Signed by: Dr. Melissa Hurst
[2017-03-06 12:19] LABS: ABG Base Excess 1.2 MMOL/L (-2.5-2.5); ABG HCO3 24.7 MMOL/L (20-26); ABG Oxygen Saturation 98.3 % (95-100); ABG PCO2 35.2 MM HG (35-48); ABG PH 7.464 (7.35-7.45); ABG PO2 187.3 MM HG (80-95); ABG TCO2 25.8 MMOL/L (23-27); Glucose Heart Surgery 88 MG/DL (74-106); Hemoglobin Heart Surgery 11.4 G/DL (14.0-18.0); Potassium Heart/CVR 3.5 MMOL/L (3.5-5.1)
[2017-03-06] MEDS: KETOROLAC 30 MG/1 ML VIAL IV SCH ×3 (12:25→23:03)
[2017-03-06 14:02] LABS: ABG Base Excess -1.8 MMOL/L (-2.5-2.5); ABG HCO3 22.9 MMOL/L (20-26); ABG Oxygen Saturation 98.3 % (95-100); ABG PCO2 42.2 MM HG (35-48); ABG PH 7.356 (7.35-7.45); ABG TCO2 21.5 MMOL/L (23-27); Glucose Heart Surgery 92 MG/DL (74-106); Hematocrit Heart Surgery 31.3 PERCENT (42-52); Hemoglobin Heart Surgery 10.1 G/DL (14.0-18.0); Potassium Heart/CVR 4.3 MMOL/L (3.5-5.1)
[2017-03-06 15:29] LABS: ABG Base Excess -1.7 MMOL/L (-2.5-2.5); ABG Oxygen Saturation 97.2 % (95-100); ABG PCO2 34.4 MM HG (35-48); ABG PH 7.419 (7.35-7.45); ABG TCO2 20.2 MMOL/L (23-27); Glucose Heart Surgery 106 MG/DL (74-106); Hematocrit Heart Surgery 31.4 PERCENT (42-52); Hemoglobin Heart Surgery 10.2 G/DL (14.0-18.0); Potassium Heart/CVR 4.5 MMOL/L (3.5-5.1)
--- NOTE | 2017-03-06 15:56 | Cardiology Progress Note ---
Cardiology - PN: Subj Interval history: Cardiology note Status post three-vessel CABG today with EPSTEIN graft to LAD, vein graft to the obtuse marginal branch and vein graft distal right coronary. Preop EF 60%. Patient beginning to wake up. Telemetry shows sinus rhythm in the 70s. Blood pressure 100/56 on aubrey- Good urine output 100 cc/h Cardiac output 5.0 cardiac index 2.2 Chest tube output 500 cc and slowing down Potassium 4.5 Hemoglobin 10.2 Plan Weaning vent as tolerated Follow labs Aubrey-Synephrine as needed Exam (Progress Note) - Constitutional Vitals: Period Temp Pulse Resp BP Sys/Schmitt Pulse Ox Last 24 Hr 96.8 F-100.5 F 62-78 10-18 79-145/45-83 94-100 Result/EKG - Labs CBC & BMP: 03/06/17 10:56 03/06/17 10:56 Labs: Laboratory Results - last 24 hr 03/05/17 03/06/17 03/06/17 05:12 05:10 07:24 WBC RBC Hgb Hct MCV MCH MCHC RDW Plt Count 176 D MPV Neut % (Auto) Lymph % (Auto) [place] % (Auto) Eos % (Auto) Baso % (Auto) Neut # (Auto) Lymph # (Auto) [place] # (Auto) Eos # (Auto) Baso # (Auto) Immature Gran % Nucleated RBC % Immature Gran # Nucleated RBCs # INR PT Patient/Control Mix Circ Anticoag PTT Patient Temperature ABG pH ABG pH at Pt Temp ABG pCO2 ABG pCO2 at Pt Temp ABG pO2 ABG pO2 at Pt Temp ABG HCO3 ABG Total CO2 ABG O2 Saturation ABG Base Excess ABG Sodium VBG pH VBG pCO2 VBG pO2 VBG HCO3 VBG Total CO2 VBG O2 Saturation VBG Base Excess Hemoglobin Hematocrit Potassium Glucose Ionized Calcium FiO2 Sodium Chloride Carbon Dioxide Anion Gap BUN Creatinine GFR Calculation BUN/Creatinine Ratio POC Glucose 101 Calculated Osmolality Calcium Venous Ioniz Calcium Magnesium Total Bilirubin AST ALT Alkaline Phosphatase Total Creatine Kinase CK-MB (CK-2) CK and CKMB Interp Troponin I Total Protein Albumin Globulin Albumin/Globulin Ratio Urine Color Urine Appearance Urine pH Ur Specific [place] Urine Protein Urine Glucose (UA) Urine Ketones Urine Blood Urine Nitrate Urine Bilirubin Urine Urobilinogen Urine Leukocytes Urine RBC Urine WBC Urine Mucus Ur Culture Indicated? Blood Type O NEGATIVE Antibody Screen Negative Crossmatch See Detail 03/06/17 03/06/17 03/06/17 07:24 07:25 08:40 WBC RBC Hgb Hct MCV MCH MCHC RDW Plt Count MPV Neut % (Auto) Lymph % (Auto) [place] % (Auto) Eos % (Auto) Baso % (Auto) Neut # (Auto) Lymph # (Auto) [place] # (Auto) Eos # (Auto) Baso # (Auto) Immature Gran % Nucleated RBC % Immature Gran # Nucleated RBCs # INR PT Patient/Control Mix Circ Anticoag PTT Patient Temperature 37 35 ABG pH 7.455 H ABG pH at Pt Temp 7.455 7.462 ABG pCO2 32.0 L ABG pCO2 at Pt Temp 32.0 35.0 ABG pO2 378.0 H ABG pO2 at Pt Temp 378.0 35.5 ABG HCO3 24.0 ABG Total CO2 19.7 L ABG O2 Saturation 98.6 ABG Base Excess -0.6 ABG Sodium 136 133 L VBG pH 7.432 VBG pCO2 38.6 L VBG pO2 40.8 H VBG HCO3 25.4 VBG Total CO2 23.8 VBG O2 Saturation 77.4 VBG Base Excess 1.5 Hemoglobin 12.5 L 8.7 L D Hematocrit 38.5 L 27.2 L Potassium 3.7 4.1 Glucose 110 H 286 H Ionized Calcium 1.17 L FiO2 80.00 Sodium Chloride Carbon Dioxide Anion Gap BUN Creatinine GFR Calculation BUN/Creatinine Ratio POC Glucose Calculated Osmolality Calcium Venous Ioniz Calcium 1.02 L Magnesium Total Bilirubin AST ALT Alkaline Phosphatase Total Creatine Kinase CK-MB (CK-2) CK and CKMB Interp Troponin I Total Protein Albumin Globulin Albumin/Globulin Ratio Urine Color Yellow Urine Appearance Clear Urine pH 5.0 Ur Specific [place] 1.017 Urine Protein Negative Urine Glucose (UA) Negative Urine Ketones 5 Urine Blood Negative Urine Nitrate Negative Urine Bilirubin Negative Urine Urobilinogen < 2.0 H Urine Leukocytes Trace Urine RBC 1 Urine WBC 3 Urine Mucus Occasional Ur Culture Indicated? Not indicated Blood Type Antibody Screen Crossmatch 03/06/17 03/06/17 03/06/17 09:10 10:00 10:00 WBC RBC Hgb Hct MCV MCH MCHC RDW Plt Count 128 L D MPV Neut % (Auto) Lymph % (Auto) [place] % (Auto) Eos % (Auto) Baso % (Auto) Neut # (Auto) Lymph # (Auto) [place] # (Auto) Eos # (Auto) Baso # (Auto) Immature Gran % Nucleated RBC % Immature Gran # Nucleated RBCs # INR PT Patient/Control Mix Circ Anticoag PTT Patient Temperature 34 37 ABG pH 7.513 H ABG pH at Pt Temp 7.460 7.513 ABG pCO2 29.0 L ABG pCO2 at Pt Temp 34.4 29.0 ABG pO2 227.5 H ABG pO2 at Pt Temp 34.4 227.5 ABG HCO3 22.8 ABG Total CO2 23.7 ABG O2 Saturation 98.2 ABG Base Excess 0.5 ABG Sodium 135 136 VBG pH 7.416 VBG pCO2 39.8 L VBG pO2 42.5 H VBG HCO3 25.0 VBG Total CO2 23.0 VBG O2 Saturation 77.6 VBG Base Excess 1.1 Hemoglobin 11.0 L D 10.5 L Hematocrit 33.9 L 31.0 L Potassium 3.7 3.8 Glucose 216 H 148 H Ionized Calcium 1.34 FiO2 80.00 Sodium Chloride Carbon Dioxide Anion Gap BUN Creatinine GFR Calculation BUN/Creatinine Ratio POC Glucose Calculated Osmolality Calcium Venous Ioniz Calcium 1.09 L Magnesium Total Bilirubin AST ALT Alkaline Phosphatase Total Creatine Kinase CK-MB (CK-2) CK and CKMB Interp Troponin I Total Protein Albumin Globulin Albumin/Globulin Ratio Urine Color Urine Appearance Urine pH Ur Specific [place] Urine Protein Urine Glucose (UA) Urine Ketones Urine Blood Urine Nitrate Urine Bilirubin Urine Urobilinogen Urine Leukocytes Urine RBC Urine WBC Urine Mucus Ur Culture Indicated? Blood Type Antibody Screen Crossmatch 03/06/17 03/06/17 03/06/17 10:56 10:56 10:56 WBC 8.7 RBC 3.62 L Hgb 11.6 L Hct 32.5 L MCV 89.8 MCH 32 MCHC 35.7 RDW 11.4 Plt Count 161 D MPV 9.5 L Neut % (Auto) 67.0 Lymph % (Auto) 26.4 [place] % (Auto) 2.9 Eos % (Auto) 2.9 Baso % (Auto) 0.3 Neut # (Auto) 5.8 Lymph # (Auto) 2.3 [place] # (Auto) 0.3 Eos # (Auto) 0.3 Baso # (Auto) 0.0 Immature Gran % 0.5 Nucleated RBC % 0.0 Immature Gran # 0.04 Nucleated RBCs # 0.00 INR 1.2 PT Patient/Control Mix 13.2 Circ Anticoag PTT 29.1 Patient Temperature ABG pH ABG pH at Pt Temp ABG pCO2 ABG pCO2 at Pt Temp ABG pO2 ABG pO2 at Pt Temp ABG HCO3 ABG Total CO2 ABG O2 Saturation ABG Base Excess ABG Sodium VBG pH VBG pCO2 VBG pO2 VBG HCO3 VBG Total CO2 VBG O2 Saturation VBG Base Excess Hemoglobin Hematocrit Potassium 3.3 L Glucose 113 H Ionized Calcium FiO2 Sodium 144 Chloride 111 H Carbon Dioxide 25 Anion Gap 11.3 BUN 12 Creatinine 0.70 GFR Calculation 139 BUN/Creatinine Ratio 17.00 POC Glucose Calculated Osmolality 286.8 Calcium 9.5 Venous Ioniz Calcium Magnesium 2.5 H Total Bilirubin 1.30 H AST 25 ALT 21 Alkaline Phosphatase 61 Total Creatine Kinase CK-MB (CK-2) CK and CKMB Interp Troponin I Total Protein 5.6 L Albumin 3.0 L Globulin 2.6 Albumin/Globulin Ratio 1.1 Urine Color Urine Appearance Urine pH Ur Specific [place] Urine Protein Urine Glucose (UA) Urine Ketones Urine Blood Urine Nitrate Urine Bilirubin Urine Urobilinogen Urine Leukocytes Urine RBC Urine WBC Urine Mucus Ur Culture Indicated? Blood Type Antibody Screen Crossmatch 03/06/17 03/06/17 03/06/17 10:56 11:00 12:17 WBC RBC Hgb Hct MCV MCH MCHC RDW Plt Count MPV Neut % (Auto) Lymph % (Auto) [place] % (Auto) Eos % (Auto) Baso % (Auto) Neut # (Auto) Lymph # (Auto) [place] # (Auto) Eos # (Auto) Baso # (Auto) Immature Gran % Nucleated RBC % Immature Gran # Nucleated RBCs # INR PT Patient/Control Mix Circ Anticoag PTT Patient Temperature ABG pH 7.461 H 7.464 H ABG pH at Pt Temp ABG pCO2 34.0 L 35.2 ABG pCO2 at Pt Temp ABG pO2 68.6 L 187.3 H ABG pO2 at Pt Temp ABG HCO3 25.2 24.7 ABG Total CO2 21.6 L 25.8 ABG O2 Saturation 94.5 L 98.3 ABG Base Excess 1.0 1.2 ABG Sodium VBG pH VBG pCO2 VBG pO2 VBG HCO3 VBG Total CO2 VBG O2 Saturation VBG Base Excess Hemoglobin 11.6 L 11.4 L Hematocrit 35.7 L 34.0 L Potassium 3.2 L 3.5 Glucose 122 H 88 Ionized Calcium FiO2 Sodium Chloride Carbon Dioxide Anion Gap BUN Creatinine GFR Calculation BUN/Creatinine Ratio POC Glucose Calculated Osmolality Calcium Venous Ioniz Calcium Magnesium Total Bilirubin AST ALT Alkaline Phosphatase Total Creatine Kinase 204 CK-MB (CK-2) 19.6 H CK and CKMB Interp 9.6 Troponin I 3.060 H Total Protein Albumin Globulin Albumin/Globulin Ratio Urine Color Urine Appearance Urine pH Ur Specific [place] Urine Protein Urine Glucose (UA) Urine Ketones Urine Blood Urine Nitrate Urine Bilirubin Urine Urobilinogen Urine Leukocytes Urine RBC Urine WBC Urine Mucus Ur Culture Indicated? Blood Type Antibody Screen Crossmatch 03/06/17 03/06/17 13:55 15:25 WBC RBC Hgb Hct MCV MCH MCHC RDW Plt Count MPV Neut % (Auto) Lymph % (Auto) [place] % (Auto) Eos % (Auto) Baso % (Auto) Neut # (Auto) Lymph # (Auto) [place] # (Auto) Eos # (Auto) Baso # (Auto) Immature Gran % Nucleated RBC % Immature Gran # Nucleated RBCs # INR PT Patient/Control Mix Circ Anticoag PTT Patient Temperature ABG pH 7.356 7.419 ABG pH at Pt Temp ABG pCO2 42.2 34.4 L ABG pCO2 at Pt Temp ABG pO2 132.0 H 97.0 H ABG pO2 at Pt Temp ABG HCO3 22.9 23.0 ABG Total CO2 21.5 L 20.2 L ABG O2 Saturation 98.3 97.2 ABG Base Excess -1.8 -1.7 ABG Sodium VBG pH VBG pCO2 VBG pO2 VBG HCO3 VBG Total CO2 VBG O2 Saturation VBG Base Excess Hemoglobin 10.1 L 10.2 L Hematocrit 31.3 L 31.4 L Potassium 4.3 4.5 Glucose 92 106 Ionized Calcium FiO2 Sodium Chloride Carbon Dioxide Anion Gap BUN Creatinine GFR Calculation BUN/Creatinine Ratio POC Glucose Calculated Osmolality Calcium Venous Ioniz Calcium Magnesium Total Bilirubin AST ALT Alkaline Phosphatase Total Creatine Kinase CK-MB (CK-2) CK and CKMB Interp Troponin I Total Protein Albumin Globulin Albumin/Globulin Ratio Urine Color Urine Appearance Urine pH Ur Specific [place] Urine Protein Urine Glucose (UA) Urine Ketones Urine Blood Urine Nitrate Urine Bilirubin Urine Urobilinogen Urine Leukocytes Urine RBC Urine WBC Urine Mucus Ur Culture Indicated? Blood Type Antibody Screen Crossmatch Quality Measures - VTE Contraindication to Pharmacological VTE Prophylaxis: High Risk of Bleeding Specialty Discharge - Follow Up or Referrals
[2017-03-06 16:55] LABS: ABG Base Excess -3.7 MMOL/L (-2.5-2.5); ABG HCO3 21.3 MMOL/L (20-26); ABG Oxygen Saturation 97.5 % (95-100); ABG PCO2 44.7 MM HG (35-48); ABG TCO2 20.8 MMOL/L (23-27); Glucose Heart Surgery 124 MG/DL (74-106); Hematocrit Heart Surgery 29.4 PERCENT (42-52); Hemoglobin Heart Surgery 9.5 G/DL (14.0-18.0); Potassium Heart/CVR 4.3 MMOL/L (3.5-5.1)
[2017-03-06 17:40] LABS: ABG Base Excess -3.5 MMOL/L (-2.5-2.5); ABG HCO3 21.5 MMOL/L (20-26); ABG PCO2 42.7 MM HG (35-48); ABG PH 7.327 (7.35-7.45); ABG PO2 96.9 MM HG (80-95); ABG TCO2 20.5 MMOL/L (23-27); Glucose Heart Surgery 133 MG/DL (74-106); Hematocrit Heart Surgery 30.5 PERCENT (42-52); Hemoglobin Heart Surgery 9.9 G/DL (14.0-18.0)
[2017-03-06] MEDS: CEFUROXIME INJ 1,500 MG in SODIUM CHLORIDE 0.9% 100 ML IV SCH (18:30)
[2017-03-06 18:57] LABS: ABG Base Excess -3.7 MMOL/L (-2.5-2.5); ABG HCO3 21.2 MMOL/L (20-26); ABG Oxygen Saturation 92.9 % (95-100); ABG PCO2 41.9 MM HG (35-48); ABG PH 7.329 (7.35-7.45); ABG PO2 71.5 MM HG (80-95); ABG TCO2 20.3 MMOL/L (23-27); Glucose Heart Surgery 137 MG/DL (74-106); Hematocrit Heart Surgery 30.2 PERCENT (42-52); Hemoglobin Heart Surgery 9.8 G/DL (14.0-18.0); Potassium Heart/CVR 4.7 MMOL/L (3.5-5.1)
[2017-03-06] MEDS: FUROSEMIDE 40 MG/4 ML VIAL IV PRN (19:00)
[2017-03-06 19:12] LABS: CKMB % 6.1 %
[2017-03-06 19:19] LABS: Troponin I Only 4.36 NG/ML (0.00-0.045)
[2017-03-06 23:04] LABS: ABG Base Excess -1.7 MMOL/L (-2.5-2.5); ABG HCO3 22.5 MMOL/L (20-26); ABG Oxygen Saturation 96.2 % (95-100); ABG PCO2 36.3 MM HG (35-48); ABG PH 7.411 (7.35-7.45); ABG PO2 86.5 MM HG (80-95); ABG TCO2 23.7 MMOL/L (23-27); Glucose Heart Surgery 123 MG/DL (74-106); Hemoglobin Heart Surgery 10.2 G/DL (14.0-18.0)
[2017-03-07] MEDS: FUROSEMIDE 40 MG/4 ML VIAL IV PRN (01:15)
[2017-03-07] MEDS: PHENYLEPHRINE DRIP 40 MG/250 ML PREMIX IV PRN (04:14)
[2017-03-07 04:22] LABS: ABG Base Excess -0.5 MMOL/L (-2.5-2.5); ABG Oxygen Saturation 97.8 % (95-100); ABG TCO2 22.2 MMOL/L (23-27); Glucose Heart Surgery 125 MG/DL (74-106); Hematocrit Heart Surgery 28.8 PERCENT (42-52); Hemoglobin Heart Surgery 9.3 G/DL (14.0-18.0); Potassium Heart/CVR 3.9 MMOL/L (3.5-5.1)
[2017-03-07] MEDS: POTASSIUM CHLORIDE RIDER 20 MEQ in PREMIX 1 EACH IV PRN ×4 (04:30→12:26)
[2017-03-07 04:32] LABS: Basophils % 0.3 % (0.0-0.8); Hematocrit 27.3 VOL% (42.0-52.0); Hemoglobin 9.4 GM/DL (14.0-18.0); Immature Granulocytes % 0.4 %; Immature Granulocytes Absolute 0.04 #; Lymphocytes # 1.1 10*3/uL (1.4-4.0); Lymphocytes % 10.3 % (21.2-54.2); Mean Corpuscular HGB Conc 34.4 GM/DL (32-36); Mean Corpuscular Hemoglobin 32 PG (27-34); Mean Corpuscular Volume 91.9 FL (87-102); Mean Platelet Volume 10.2 FL (9.6-12.0); Monocytes # 1.3 10*3/uL (0.11-0.8); Monocytes % 12.6 % (1.7-12.7); Neutrophils # 8.1 10*3/uL (1.4-7.4); Neutrophils % 76.4 % (38.7-73.9); Platelet Count 221 T/CUMM (130-400); Red Blood Count 2.97 MC/CUMM (3.8-5.5); Red Cell Distribution Width 11.6 % (9.3-17.3); White Blood Count 10.6 T/CUMM (4-12)
[2017-03-07 05:05] LABS: Albumin 3.5 G/DL (3.4-5.0); Bilirubin,Direct 0.2 MG/DL (0.0-0.20); Bilirubin,Total 0.6 MG/DL (0.2-1.0); Calcium 8.8 MG/DL (8.5-10.1); Magnesium 2.1 MG/DL (1.8-2.4); Osmolality,Calculated 289.7 MOS/KG (273-304); Potassium 4.1 MMOL/L (3.5-5.1); Total Protein 5.7 G/DL (6.4-8.3)
[2017-03-07] MEDS: KETOROLAC 30 MG/1 ML VIAL IV SCH ×4 (05:07→21:34)
[2017-03-07 05:19] LABS: CKMB % 3.8 %
[2017-03-07 05:20] LABS: Troponin I Only 2.6 NG/ML (0.00-0.045)
[2017-03-07] MEDS: CEFUROXIME INJ 1,500 MG in SODIUM CHLORIDE 0.9% 100 ML IV SCH (06:20)
--- NOTE | 2017-03-07 06:21 | Cardiology Progress Note ---
Cardiology - PN: Subj Interval history: Cardiology note Postop day #1 three-vessel CABG with EPSTEIN graft to LAD, vein graft to obtuse marginal branch and vein graft to right coronary. Preop EF 60%. Extubated and comfortable. Telemetry shows sinus rhythm in the 60s Cardiac output 5.0 cardiac index 2.2 PA pressure 26/11 Chest tube output 900 cc to date Blood pressure 100/50 on aubrey- Regular rhythm with loud rub Decreased breath sounds basilar rhonchi Abdomen benign Lab data today white count 10.6 hemoglobin 9.4 hematocrit 29.3 Sodium 145 potassium 4.1 chloride 110 CO2 25 BUN 16 creatinine 0.80 Peak troponin 4.3, down to 2.60 today Impression Status post three-vessel CABG with preop EF 60% Plan Follow chest tube output Wean Aubrey as tolerated Exam (Progress Note) - Constitutional Vitals: Period Temp Pulse Resp BP Sys/Schmitt Pulse Ox Last 24 Hr 96.8 F-101.1 F 60-78 10-18 77-145/40-72 91-100 Result/EKG - Labs CBC & BMP: 03/07/17 04:10 03/07/17 04:10 Labs: Laboratory Results - last 24 hr 03/05/17 03/06/17 03/06/17 05:12 07:24 07:24 WBC RBC Hgb Hct MCV MCH MCHC RDW Plt Count 176 D MPV Neut % (Auto) Lymph % (Auto) [place] % (Auto) Eos % (Auto) Baso % (Auto) Neut # (Auto) Lymph # (Auto) [place] # (Auto) Eos # (Auto) Baso # (Auto) Immature Gran % Nucleated RBC % Immature Gran # Nucleated RBCs # INR PT Patient/Control Mix Circ Anticoag PTT Patient Temperature 37 ABG pH 7.455 H ABG pH at Pt Temp 7.455 ABG pCO2 32.0 L ABG pCO2 at Pt Temp 32.0 ABG pO2 378.0 H ABG pO2 at Pt Temp 378.0 ABG HCO3 24.0 ABG Total CO2 19.7 L ABG O2 Saturation 98.6 ABG Base Excess -0.6 ABG Sodium 136 VBG pH VBG pCO2 VBG pO2 VBG HCO3 VBG Total CO2 VBG O2 Saturation VBG Base Excess Hemoglobin 12.5 L Hematocrit 38.5 L Potassium 3.7 Glucose 110 H Ionized Calcium 1.17 L FiO2 Sodium Chloride Carbon Dioxide Anion Gap BUN Creatinine GFR Calculation BUN/Creatinine Ratio Calculated Osmolality Calcium Venous Ioniz Calcium Magnesium Total Bilirubin Direct Bilirubin AST ALT Alkaline Phosphatase Total Creatine Kinase CK-MB (CK-2) CK and CKMB Interp Troponin I Total Protein Albumin Globulin Albumin/Globulin Ratio Urine Color Urine Appearance Urine pH Ur Specific [place] Urine Protein Urine Glucose (UA) Urine Ketones Urine Blood Urine Nitrate Urine Bilirubin Urine Urobilinogen Urine Leukocytes Urine RBC Urine WBC Urine Mucus Ur Culture Indicated? Blood Type O NEGATIVE Antibody Screen Negative Crossmatch See Detail 03/06/17 03/06/17 03/06/17 07:25 08:40 09:10 WBC RBC Hgb Hct MCV MCH MCHC RDW Plt Count MPV Neut % (Auto) Lymph % (Auto) [place] % (Auto) Eos % (Auto) Baso % (Auto) Neut # (Auto) Lymph # (Auto) [place] # (Auto) Eos # (Auto) Baso # (Auto) Immature Gran % Nucleated RBC % Immature Gran # Nucleated RBCs # INR PT Patient/Control Mix Circ Anticoag PTT Patient Temperature 35 34 ABG pH ABG pH at Pt Temp 7.462 7.460 ABG pCO2 ABG pCO2 at Pt Temp 35.0 34.4 ABG pO2 ABG pO2 at Pt Temp 35.5 34.4 ABG HCO3 ABG Total CO2 ABG O2 Saturation ABG Base Excess ABG Sodium 133 L 135 VBG pH 7.432 7.416 VBG pCO2 38.6 L 39.8 L VBG pO2 40.8 H 42.5 H VBG HCO3 25.4 25.0 VBG Total CO2 23.8 23.0 VBG O2 Saturation 77.4 77.6 VBG Base Excess 1.5 1.1 Hemoglobin 8.7 L D 11.0 L D Hematocrit 27.2 L 33.9 L Potassium 4.1 3.7 Glucose 286 H 216 H Ionized Calcium FiO2 80.00 80.00 Sodium Chloride Carbon Dioxide Anion Gap BUN Creatinine GFR Calculation BUN/Creatinine Ratio Calculated Osmolality Calcium Venous Ioniz Calcium 1.02 L 1.09 L Magnesium Total Bilirubin Direct Bilirubin AST ALT Alkaline Phosphatase Total Creatine Kinase CK-MB (CK-2) CK and CKMB Interp Troponin I Total Protein Albumin Globulin Albumin/Globulin Ratio Urine Color Yellow Urine Appearance Clear Urine pH 5.0 Ur Specific [place] 1.017 Urine Protein Negative Urine Glucose (UA) Negative Urine Ketones 5 Urine Blood Negative Urine Nitrate Negative Urine Bilirubin Negative Urine Urobilinogen < 2.0 H Urine Leukocytes Trace Urine RBC 1 Urine WBC 3 Urine Mucus Occasional Ur Culture Indicated? Not indicated Blood Type Antibody Screen Crossmatch 03/06/17 03/06/17 03/06/17 10:00 10:00 10:56 WBC 8.7 RBC 3.62 L Hgb 11.6 L Hct 32.5 L MCV 89.8 MCH 32 MCHC 35.7 RDW 11.4 Plt Count 128 L D 161 D MPV 9.5 L Neut % (Auto) 67.0 Lymph % (Auto) 26.4 [place] % (Auto) 2.9 Eos % (Auto) 2.9 Baso % (Auto) 0.3 Neut # (Auto) 5.8 Lymph # (Auto) 2.3 [place] # (Auto) 0.3 Eos # (Auto) 0.3 Baso # (Auto) 0.0 Immature Gran % 0.5 Nucleated RBC % 0.0 Immature Gran # 0.04 Nucleated RBCs # 0.00 INR PT Patient/Control Mix Circ Anticoag PTT Patient Temperature 37 ABG pH 7.513 H ABG pH at Pt Temp 7.513 ABG pCO2 29.0 L ABG pCO2 at Pt Temp 29.0 ABG pO2 227.5 H ABG pO2 at Pt Temp 227.5 ABG HCO3 22.8 ABG Total CO2 23.7 ABG O2 Saturation 98.2 ABG Base Excess 0.5 ABG Sodium 136 VBG pH VBG pCO2 VBG pO2 VBG HCO3 VBG Total CO2 VBG O2 Saturation VBG Base Excess Hemoglobin 10.5 L Hematocrit 31.0 L Potassium 3.8 Glucose 148 H Ionized Calcium 1.34 FiO2 Sodium Chloride Carbon Dioxide Anion Gap BUN Creatinine GFR Calculation BUN/Creatinine Ratio Calculated Osmolality Calcium Venous Ioniz Calcium Magnesium Total Bilirubin Direct Bilirubin AST ALT Alkaline Phosphatase Total Creatine Kinase CK-MB (CK-2) CK and CKMB Interp Troponin I Total Protein Albumin Globulin Albumin/Globulin Ratio Urine Color Urine Appearance Urine pH Ur Specific [place] Urine Protein Urine Glucose (UA) Urine Ketones Urine Blood Urine Nitrate Urine Bilirubin Urine Urobilinogen Urine Leukocytes Urine RBC Urine WBC Urine Mucus Ur Culture Indicated? Blood Type Antibody Screen Crossmatch 03/06/17 03/06/17 03/06/17 10:56 10:56 10:56 WBC RBC Hgb Hct MCV MCH MCHC RDW Plt Count MPV Neut % (Auto) Lymph % (Auto) [place] % (Auto) Eos % (Auto) Baso % (Auto) Neut # (Auto) Lymph # (Auto) [place] # (Auto) Eos # (Auto) Baso # (Auto) Immature Gran % Nucleated RBC % Immature Gran # Nucleated RBCs # INR 1.2 PT Patient/Control Mix 13.2 Circ Anticoag PTT 29.1 Patient Temperature ABG pH 7.461 H ABG pH at Pt Temp ABG pCO2 34.0 L ABG pCO2 at Pt Temp ABG pO2 68.6 L ABG pO2 at Pt Temp ABG HCO3 25.2 ABG Total CO2 21.6 L ABG O2 Saturation 94.5 L ABG Base Excess 1.0 ABG Sodium VBG pH VBG pCO2 VBG pO2 VBG HCO3 VBG Total CO2 VBG O2 Saturation VBG Base Excess Hemoglobin 11.6 L Hematocrit 35.7 L Potassium 3.3 L 3.2 L Glucose 113 H 122 H Ionized Calcium FiO2 Sodium 144 Chloride 111 H Carbon Dioxide 25 Anion Gap 11.3 BUN 12 Creatinine 0.70 GFR Calculation 139 BUN/Creatinine Ratio 17.00 Calculated Osmolality 286.8 Calcium 9.5 Venous Ioniz Calcium Magnesium 2.5 H Total Bilirubin 1.30 H Direct Bilirubin AST 25 ALT 21 Alkaline Phosphatase 61 Total Creatine Kinase CK-MB (CK-2) CK and CKMB Interp Troponin I Total Protein 5.6 L Albumin 3.0 L Globulin 2.6 Albumin/Globulin Ratio 1.1 Urine Color Urine Appearance Urine pH Ur Specific [place] Urine Protein Urine Glucose (UA) Urine Ketones Urine Blood Urine Nitrate Urine Bilirubin Urine Urobilinogen Urine Leukocytes Urine RBC Urine WBC Urine Mucus Ur Culture Indicated? Blood Type Antibody Screen Crossmatch 03/06/17 03/06/17 03/06/17 11:00 12:17 13:55 WBC RBC Hgb Hct MCV MCH MCHC RDW Plt Count MPV Neut % (Auto) Lymph % (Auto) [place] % (Auto) Eos % (Auto) Baso % (Auto) Neut # (Auto) Lymph # (Auto) [place] # (Auto) Eos # (Auto) Baso # (Auto) Immature Gran % Nucleated RBC % Immature Gran # Nucleated RBCs # INR PT Patient/Control Mix Circ Anticoag PTT Patient Temperature ABG pH 7.464 H 7.356 ABG pH at Pt Temp ABG pCO2 35.2 42.2 ABG pCO2 at Pt Temp ABG pO2 187.3 H 132.0 H ABG pO2 at Pt Temp ABG HCO3 24.7 22.9 ABG Total CO2 25.8 21.5 L ABG O2 Saturation 98.3 98.3 ABG Base Excess 1.2 -1.8 ABG Sodium VBG pH VBG pCO2 VBG pO2 VBG HCO3 VBG Total CO2 VBG O2 Saturation VBG Base Excess Hemoglobin 11.4 L 10.1 L Hematocrit 34.0 L 31.3 L Potassium 3.5 4.3 Glucose 88 92 Ionized Calcium FiO2 Sodium Chloride Carbon Dioxide Anion Gap BUN Creatinine GFR Calculation BUN/Creatinine Ratio Calculated Osmolality Calcium Venous Ioniz Calcium Magnesium Total Bilirubin Direct Bilirubin AST ALT Alkaline Phosphatase Total Creatine Kinase 204 CK-MB (CK-2) 19.6 H CK and CKMB Interp 9.6 Troponin I 3.060 H Total Protein Albumin Globulin Albumin/Globulin Ratio Urine Color Urine Appearance Urine pH Ur Specific [place] Urine Protein Urine Glucose (UA) Urine Ketones Urine Blood Urine Nitrate Urine Bilirubin Urine Urobilinogen Urine Leukocytes Urine RBC Urine WBC Urine Mucus Ur Culture Indicated? Blood Type Antibody Screen Crossmatch 03/06/17 03/06/17 03/06/17 15:25 16:55 17:35 WBC RBC Hgb Hct MCV MCH MCHC RDW Plt Count MPV Neut % (Auto) Lymph % (Auto) [place] % (Auto) Eos % (Auto) Baso % (Auto) Neut # (Auto) Lymph # (Auto) [place] # (Auto) Eos # (Auto) Baso # (Auto) Immature Gran % Nucleated RBC % Immature Gran # Nucleated RBCs # INR PT Patient/Control Mix Circ Anticoag PTT Patient Temperature ABG pH 7.419 7.310 L 7.327 L ABG pH at Pt Temp ABG pCO2 34.4 L 44.7 42.7 ABG pCO2 at Pt Temp ABG pO2 97.0 H 102.0 H 96.9 H ABG pO2 at Pt Temp ABG HCO3 23.0 21.3 21.5 ABG Total CO2 20.2 L 20.8 L 20.5 L ABG O2 Saturation 97.2 97.5 97.0 ABG Base Excess -1.7 -3.7 L -3.5 L ABG Sodium VBG pH VBG pCO2 VBG pO2 VBG HCO3 VBG Total CO2 VBG O2 Saturation VBG Base Excess Hemoglobin 10.2 L 9.5 L 9.9 L Hematocrit 31.4 L 29.4 L 30.5 L Potassium 4.5 4.3 5.0 Glucose 106 124 H 133 H Ionized Calcium FiO2 Sodium Chloride Carbon Dioxide Anion Gap BUN Creatinine GFR Calculation BUN/Creatinine Ratio Calculated Osmolality Calcium Venous Ioniz Calcium Magnesium Total Bilirubin Direct Bilirubin AST ALT Alkaline Phosphatase Total Creatine Kinase CK-MB (CK-2) CK and CKMB Interp Troponin I Total Protein Albumin Globulin Albumin/Globulin Ratio Urine Color Urine Appearance Urine pH Ur Specific [place] Urine Protein Urine Glucose (UA) Urine Ketones Urine Blood Urine Nitrate Urine Bilirubin Urine Urobilinogen Urine Leukocytes Urine RBC Urine WBC Urine Mucus Ur Culture Indicated? Blood Type Antibody Screen Crossmatch 03/06/17 03/06/17 03/06/17 18:30 18:30 18:30 WBC RBC Hgb Hct MCV MCH MCHC RDW Plt Count MPV Neut % (Auto) Lymph % (Auto) [place] % (Auto) Eos % (Auto) Baso % (Auto) Neut # (Auto) Lymph # (Auto) [place] # (Auto) Eos # (Auto) Baso # (Auto) Immature Gran % Nucleated RBC % Immature Gran # Nucleated RBCs # INR PT Patient/Control Mix Circ Anticoag PTT Patient Temperature ABG pH 7.329 L ABG pH at Pt Temp ABG pCO2 41.9 ABG pCO2 at Pt Temp ABG pO2 71.5 L ABG pO2 at Pt Temp ABG HCO3 21.2 ABG Total CO2 20.3 L ABG O2 Saturation 92.9 L ABG Base Excess -3.7 L ABG Sodium VBG pH VBG pCO2 VBG pO2 VBG HCO3 VBG Total CO2 VBG O2 Saturation VBG Base Excess Hemoglobin 9.8 L Hematocrit 30.2 L Potassium 4.7 Glucose 137 H Ionized Calcium FiO2 Sodium Chloride Carbon Dioxide Anion Gap BUN Creatinine GFR Calculation BUN/Creatinine Ratio Calculated Osmolality Calcium Venous Ioniz Calcium Magnesium 2.2 Total Bilirubin Direct Bilirubin AST ALT Alkaline Phosphatase Total Creatine Kinase 299 D CK-MB (CK-2) 18.3 H CK and CKMB Interp 6.1 Troponin I 4.360 H D Total Protein Albumin Globulin Albumin/Globulin Ratio Urine Color Urine Appearance Urine pH Ur Specific [place] Urine Protein Urine Glucose (UA) Urine Ketones Urine Blood Urine Nitrate Urine Bilirubin Urine Urobilinogen Urine Leukocytes Urine RBC Urine WBC Urine Mucus Ur Culture Indicated? Blood Type Antibody Screen Crossmatch 03/06/17 03/07/17 03/07/17 23:00 04:10 04:10 WBC 10.6 RBC 2.97 L Hgb 9.4 L D Hct 27.3 L MCV 91.9 MCH 32 MCHC 34.4 RDW 11.6 Plt Count 221 D MPV 10.2 Neut % (Auto) 76.4 H Lymph % (Auto) 10.3 L [place] % (Auto) 12.6 Eos % (Auto) 0.0 Baso % (Auto) 0.3 Neut # (Auto) 8.1 H Lymph # (Auto) 1.1 L [place] # (Auto) 1.3 H Eos # (Auto) 0.0 Baso # (Auto) 0.0 Immature Gran % 0.4 Nucleated RBC % 0.0 Immature Gran # 0.04 Nucleated RBCs # 0.00 INR PT Patient/Control Mix Circ Anticoag PTT Patient Temperature ABG pH 7.411 ABG pH at Pt Temp ABG pCO2 36.3 ABG pCO2 at Pt Temp ABG pO2 86.5 ABG pO2 at Pt Temp ABG HCO3 22.5 ABG Total CO2 23.7 ABG O2 Saturation 96.2 ABG Base Excess -1.7 ABG Sodium VBG pH VBG pCO2 VBG pO2 VBG HCO3 VBG Total CO2 VBG O2 Saturation VBG Base Excess Hemoglobin 10.2 L Hematocrit 30.0 L Potassium 4.0 Glucose 123 H Ionized Calcium FiO2 Sodium Chloride Carbon Dioxide Anion Gap BUN Creatinine GFR Calculation BUN/Creatinine Ratio Calculated Osmolality Calcium Venous Ioniz Calcium Magnesium Total Bilirubin Direct Bilirubin AST ALT Alkaline Phosphatase Total Creatine Kinase 397 H D CK-MB (CK-2) 15.0 H CK and CKMB Interp 3.8 Troponin I 2.600 H D Total Protein Albumin Globulin Albumin/Globulin Ratio Urine Color Urine Appearance Urine pH Ur Specific [place] Urine Protein Urine Glucose (UA) Urine Ketones Urine Blood Urine Nitrate Urine Bilirubin Urine Urobilinogen Urine Leukocytes Urine RBC Urine WBC Urine Mucus Ur Culture Indicated? Blood Type Antibody Screen Crossmatch 03/07/17 03/07/17 04:10 04:10 WBC RBC Hgb Hct MCV MCH MCHC RDW Plt Count MPV Neut % (Auto) Lymph % (Auto) [place] % (Auto) Eos % (Auto) Baso % (Auto) Neut # (Auto) Lymph # (Auto) [place] # (Auto) Eos # (Auto) Baso # (Auto) Immature Gran % Nucleated RBC % Immature Gran # Nucleated RBCs # INR PT Patient/Control Mix Circ Anticoag PTT Patient Temperature ABG pH 7.400 ABG pH at Pt Temp ABG pCO2 39.0 ABG pCO2 at Pt Temp ABG pO2 105.0 H ABG pO2 at Pt Temp ABG HCO3 24.0 ABG Total CO2 22.2 L ABG O2 Saturation 97.8 ABG Base Excess -0.5 ABG Sodium VBG pH VBG pCO2 VBG pO2 VBG HCO3 VBG Total CO2 VBG O2 Saturation VBG Base Excess Hemoglobin 9.3 L Hematocrit 28.8 L Potassium 4.1 3.9 Glucose 119 H 125 H Ionized Calcium FiO2 Sodium 145 Chloride 110 H Carbon Dioxide 25 Anion Gap 14.1 BUN 16 Creatinine 0.80 GFR Calculation 131 BUN/Creatinine Ratio 20.00 Calculated Osmolality 289.7 Calcium 8.8 Venous Ioniz Calcium Magnesium 2.1 Total Bilirubin 0.60 Direct Bilirubin 0.20 AST 37 ALT 22 Alkaline Phosphatase 52 Total Creatine Kinase CK-MB (CK-2) CK and CKMB Interp Troponin I Total Protein 5.7 L Albumin 3.5 Globulin 2.2 L Albumin/Globulin Ratio 1.5 Urine Color Urine Appearance Urine pH Ur Specific [place] Urine Protein Urine Glucose (UA) Urine Ketones Urine Blood Urine Nitrate Urine Bilirubin Urine Urobilinogen Urine Leukocytes Urine RBC Urine WBC Urine Mucus Ur Culture Indicated? Blood Type Antibody Screen Crossmatch Quality Measures - VTE Contraindication to Pharmacological VTE Prophylaxis: High Risk of Bleeding Specialty Discharge - Follow Up or Referrals
--- NOTE | 2017-03-07 07:52 | EKG Report ---
Stationary ECG Study [facility] Test Date: 03/07/2017 7:51:56 AM Pat Name: ROLANDA DHILLON Department: Room: 104 Gender: M Asset Manager: : 1960 Requested by: Keith Escalona Order Number: [id number] Reading MD: KATHERINE ROA Intervals [place] Rate: 64 P: 35 KS: 213 QRS: 35 QRSD: 88 T: 38 QT: 393 QTc: 403 Interpretive Statements SINUS RHYTHM WITH PROLONGED KS INTERVAL PERICARDITIS Electronically Signed On 03-08-17 12:51:58 CDT by KATHERINE ROA [email or web address]
[2017-03-07 08:12] LABS: ABG Base Excess 0.5 MMOL/L (-2.5-2.5); ABG HCO3 24.8 MMOL/L (20-26); ABG Oxygen Saturation 96.9 % (95-100); ABG PCO2 39.3 MM HG (35-48); ABG PH 7.412 (7.35-7.45); ABG PO2 90.4 MM HG (80-95); ABG TCO2 22.3 MMOL/L (23-27); Glucose Heart Surgery 112 MG/DL (74-106); Hematocrit Heart Surgery 34.7 PERCENT (42-52); Hemoglobin Heart Surgery 11.3 G/DL (14.0-18.0); Potassium Heart/CVR 4.2 MMOL/L (3.5-5.1)
--- NOTE | 2017-03-07 08:29 | Cardiothoracic Progress Note ---
Cardiothoracic Subjective Interval history: Patient is awake alert and extubated. He has been stable through the night and vital signs are stable this morning and his cardiac output is greater than 5 L/ min. Blood gases are satisfactory postextubation and urine output has been adequate with a creatinine of 0.8 this morning. Chest tube drainage is now minimal and his chest tubes are going to be removed and I think he can be transferred to telemetry later this morning. He has not had any significant cardiac enzyme rise and overall his progress appears satisfactory. Exam (Progress Note) - Constitutional Vitals: Period Temp Pulse Resp BP Sys/Schmitt Pulse Ox Last 24 Hr 96.8 F-101.1 F 60-78 10-18 77-145/40-72 91-100 Result/EKG - Labs CBC & BMP: 03/07/17 04:10 03/07/17 04:10 Labs: Laboratory Results - last 24 hr 03/05/17 03/06/17 03/06/17 05:12 08:40 09:10 WBC RBC Hgb Hct MCV MCH MCHC RDW Plt Count MPV Neut % (Auto) Lymph % (Auto) [place] % (Auto) Eos % (Auto) Baso % (Auto) Neut # (Auto) Lymph # (Auto) [place] # (Auto) Eos # (Auto) Baso # (Auto) Immature Gran % Nucleated RBC % Immature Gran # Nucleated RBCs # INR PT Patient/Control Mix Circ Anticoag PTT Patient Temperature 35 34 ABG pH ABG pH at Pt Temp 7.462 7.460 ABG pCO2 ABG pCO2 at Pt Temp 35.0 34.4 ABG pO2 ABG pO2 at Pt Temp 35.5 34.4 ABG HCO3 ABG Total CO2 ABG O2 Saturation ABG Base Excess ABG Sodium 133 L 135 VBG pH 7.432 7.416 VBG pCO2 38.6 L 39.8 L VBG pO2 40.8 H 42.5 H VBG HCO3 25.4 25.0 VBG Total CO2 23.8 23.0 VBG O2 Saturation 77.4 77.6 VBG Base Excess 1.5 1.1 Hemoglobin 8.7 L D 11.0 L D Hematocrit 27.2 L 33.9 L Potassium 4.1 3.7 Glucose 286 H 216 H Ionized Calcium FiO2 80.00 80.00 Sodium Chloride Carbon Dioxide Anion Gap BUN Creatinine GFR Calculation BUN/Creatinine Ratio Calculated Osmolality Calcium Venous Ioniz Calcium 1.02 L 1.09 L Magnesium Total Bilirubin Direct Bilirubin AST ALT Alkaline Phosphatase Total Creatine Kinase CK-MB (CK-2) CK and CKMB Interp Troponin I Total Protein Albumin Globulin Albumin/Globulin Ratio Blood Type O NEGATIVE Antibody Screen Negative Crossmatch See Detail 03/06/17 03/06/17 03/06/17 10:00 10:00 10:56 WBC 8.7 RBC 3.62 L Hgb 11.6 L Hct 32.5 L MCV 89.8 MCH 32 MCHC 35.7 RDW 11.4 Plt Count 128 L D 161 D MPV 9.5 L Neut % (Auto) 67.0 Lymph % (Auto) 26.4 [place] % (Auto) 2.9 Eos % (Auto) 2.9 Baso % (Auto) 0.3 Neut # (Auto) 5.8 Lymph # (Auto) 2.3 [place] # (Auto) 0.3 Eos # (Auto) 0.3 Baso # (Auto) 0.0 Immature Gran % 0.5 Nucleated RBC % 0.0 Immature Gran # 0.04 Nucleated RBCs # 0.00 INR PT Patient/Control Mix Circ Anticoag PTT Patient Temperature 37 ABG pH 7.513 H ABG pH at Pt Temp 7.513 ABG pCO2 29.0 L ABG pCO2 at Pt Temp 29.0 ABG pO2 227.5 H ABG pO2 at Pt Temp 227.5 ABG HCO3 22.8 ABG Total CO2 23.7 ABG O2 Saturation 98.2 ABG Base Excess 0.5 ABG Sodium 136 VBG pH VBG pCO2 VBG pO2 VBG HCO3 VBG Total CO2 VBG O2 Saturation VBG Base Excess Hemoglobin 10.5 L Hematocrit 31.0 L Potassium 3.8 Glucose 148 H Ionized Calcium 1.34 FiO2 Sodium Chloride Carbon Dioxide Anion Gap BUN Creatinine GFR Calculation BUN/Creatinine Ratio Calculated Osmolality Calcium Venous Ioniz Calcium Magnesium Total Bilirubin Direct Bilirubin AST ALT Alkaline Phosphatase Total Creatine Kinase CK-MB (CK-2) CK and CKMB Interp Troponin I Total Protein Albumin Globulin Albumin/Globulin Ratio Blood Type Antibody Screen Crossmatch 03/06/17 03/06/17 03/06/17 10:56 10:56 10:56 WBC RBC Hgb Hct MCV MCH MCHC RDW Plt Count MPV Neut % (Auto) Lymph % (Auto) [place] % (Auto) Eos % (Auto) Baso % (Auto) Neut # (Auto) Lymph # (Auto) [place] # (Auto) Eos # (Auto) Baso # (Auto) Immature Gran % Nucleated RBC % Immature Gran # Nucleated RBCs # INR 1.2 PT Patient/Control Mix 13.2 Circ Anticoag PTT 29.1 Patient Temperature ABG pH 7.461 H ABG pH at Pt Temp ABG pCO2 34.0 L ABG pCO2 at Pt Temp ABG pO2 68.6 L ABG pO2 at Pt Temp ABG HCO3 25.2 ABG Total CO2 21.6 L ABG O2 Saturation 94.5 L ABG Base Excess 1.0 ABG Sodium VBG pH VBG pCO2 VBG pO2 VBG HCO3 VBG Total CO2 VBG O2 Saturation VBG Base Excess Hemoglobin 11.6 L Hematocrit 35.7 L Potassium 3.3 L 3.2 L Glucose 113 H 122 H Ionized Calcium FiO2 Sodium 144 Chloride 111 H Carbon Dioxide 25 Anion Gap 11.3 BUN 12 Creatinine 0.70 GFR Calculation 139 BUN/Creatinine Ratio 17.00 Calculated Osmolality 286.8 Calcium 9.5 Venous Ioniz Calcium Magnesium 2.5 H Total Bilirubin 1.30 H Direct Bilirubin AST 25 ALT 21 Alkaline Phosphatase 61 Total Creatine Kinase CK-MB (CK-2) CK and CKMB Interp Troponin I Total Protein 5.6 L Albumin 3.0 L Globulin 2.6 Albumin/Globulin Ratio 1.1 Blood Type Antibody Screen Crossmatch 03/06/17 03/06/17 03/06/17 11:00 12:17 13:55 WBC RBC Hgb Hct MCV MCH MCHC RDW Plt Count MPV Neut % (Auto) Lymph % (Auto) [place] % (Auto) Eos % (Auto) Baso % (Auto) Neut # (Auto) Lymph # (Auto) [place] # (Auto) Eos # (Auto) Baso # (Auto) Immature Gran % Nucleated RBC % Immature Gran # Nucleated RBCs # INR PT Patient/Control Mix Circ Anticoag PTT Patient Temperature ABG pH 7.464 H 7.356 ABG pH at Pt Temp ABG pCO2 35.2 42.2 ABG pCO2 at Pt Temp ABG pO2 187.3 H 132.0 H ABG pO2 at Pt Temp ABG HCO3 24.7 22.9 ABG Total CO2 25.8 21.5 L ABG O2 Saturation 98.3 98.3 ABG Base Excess 1.2 -1.8 ABG Sodium VBG pH VBG pCO2 VBG pO2 VBG HCO3 VBG Total CO2 VBG O2 Saturation VBG Base Excess Hemoglobin 11.4 L 10.1 L Hematocrit 34.0 L 31.3 L Potassium 3.5 4.3 Glucose 88 92 Ionized Calcium FiO2 Sodium Chloride Carbon Dioxide Anion Gap BUN Creatinine GFR Calculation BUN/Creatinine Ratio Calculated Osmolality Calcium Venous Ioniz Calcium Magnesium Total Bilirubin Direct Bilirubin AST ALT Alkaline Phosphatase Total Creatine Kinase 204 CK-MB (CK-2) 19.6 H CK and CKMB Interp 9.6 Troponin I 3.060 H Total Protein Albumin Globulin Albumin/Globulin Ratio Blood Type Antibody Screen Crossmatch 03/06/17 03/06/17 03/06/17 15:25 16:55 17:35 WBC RBC Hgb Hct MCV MCH MCHC RDW Plt Count MPV Neut % (Auto) Lymph % (Auto) [place] % (Auto) Eos % (Auto) Baso % (Auto) Neut # (Auto) Lymph # (Auto) [place] # (Auto) Eos # (Auto) Baso # (Auto) Immature Gran % Nucleated RBC % Immature Gran # Nucleated RBCs # INR PT Patient/Control Mix Circ Anticoag PTT Patient Temperature ABG pH 7.419 7.310 L 7.327 L ABG pH at Pt Temp ABG pCO2 34.4 L 44.7 42.7 ABG pCO2 at Pt Temp ABG pO2 97.0 H 102.0 H 96.9 H ABG pO2 at Pt Temp ABG HCO3 23.0 21.3 21.5 ABG Total CO2 20.2 L 20.8 L 20.5 L ABG O2 Saturation 97.2 97.5 97.0 ABG Base Excess -1.7 -3.7 L -3.5 L ABG Sodium VBG pH VBG pCO2 VBG pO2 VBG HCO3 VBG Total CO2 VBG O2 Saturation VBG Base Excess Hemoglobin 10.2 L 9.5 L 9.9 L Hematocrit 31.4 L 29.4 L 30.5 L Potassium 4.5 4.3 5.0 Glucose 106 124 H 133 H Ionized Calcium FiO2 Sodium Chloride Carbon Dioxide Anion Gap BUN Creatinine GFR Calculation BUN/Creatinine Ratio Calculated Osmolality Calcium Venous Ioniz Calcium Magnesium Total Bilirubin Direct Bilirubin AST ALT Alkaline Phosphatase Total Creatine Kinase CK-MB (CK-2) CK and CKMB Interp Troponin I Total Protein Albumin Globulin Albumin/Globulin Ratio Blood Type Antibody Screen Crossmatch 03/06/17 03/06/17 03/06/17 18:30 18:30 18:30 WBC RBC Hgb Hct MCV MCH MCHC RDW Plt Count MPV Neut % (Auto) Lymph % (Auto) [place] % (Auto) Eos % (Auto) Baso % (Auto) Neut # (Auto) Lymph # (Auto) [place] # (Auto) Eos # (Auto) Baso # (Auto) Immature Gran % Nucleated RBC % Immature Gran # Nucleated RBCs # INR PT Patient/Control Mix Circ Anticoag PTT Patient Temperature ABG pH 7.329 L ABG pH at Pt Temp ABG pCO2 41.9 ABG pCO2 at Pt Temp ABG pO2 71.5 L ABG pO2 at Pt Temp ABG HCO3 21.2 ABG Total CO2 20.3 L ABG O2 Saturation 92.9 L ABG Base Excess -3.7 L ABG Sodium VBG pH VBG pCO2 VBG pO2 VBG HCO3 VBG Total CO2 VBG O2 Saturation VBG Base Excess Hemoglobin 9.8 L Hematocrit 30.2 L Potassium 4.7 Glucose 137 H Ionized Calcium FiO2 Sodium Chloride Carbon Dioxide Anion Gap BUN Creatinine GFR Calculation BUN/Creatinine Ratio Calculated Osmolality Calcium Venous Ioniz Calcium Magnesium 2.2 Total Bilirubin Direct Bilirubin AST ALT Alkaline Phosphatase Total Creatine Kinase 299 D CK-MB (CK-2) 18.3 H CK and CKMB Interp 6.1 Troponin I 4.360 H D Total Protein Albumin Globulin Albumin/Globulin Ratio Blood Type Antibody Screen Crossmatch 03/06/17 03/07/17 03/07/17 23:00 04:10 04:10 WBC 10.6 RBC 2.97 L Hgb 9.4 L D Hct 27.3 L MCV 91.9 MCH 32 MCHC 34.4 RDW 11.6 Plt Count 221 D MPV 10.2 Neut % (Auto) 76.4 H Lymph % (Auto) 10.3 L [place] % (Auto) 12.6 Eos % (Auto) 0.0 Baso % (Auto) 0.3 Neut # (Auto) 8.1 H Lymph # (Auto) 1.1 L [place] # (Auto) 1.3 H Eos # (Auto) 0.0 Baso # (Auto) 0.0 Immature Gran % 0.4 Nucleated RBC % 0.0 Immature Gran # 0.04 Nucleated RBCs # 0.00 INR PT Patient/Control Mix Circ Anticoag PTT Patient Temperature ABG pH 7.411 ABG pH at Pt Temp ABG pCO2 36.3 ABG pCO2 at Pt Temp ABG pO2 86.5 ABG pO2 at Pt Temp ABG HCO3 22.5 ABG Total CO2 23.7 ABG O2 Saturation 96.2 ABG Base Excess -1.7 ABG Sodium VBG pH VBG pCO2 VBG pO2 VBG HCO3 VBG Total CO2 VBG O2 Saturation VBG Base Excess Hemoglobin 10.2 L Hematocrit 30.0 L Potassium 4.0 Glucose 123 H Ionized Calcium FiO2 Sodium Chloride Carbon Dioxide Anion Gap BUN Creatinine GFR Calculation BUN/Creatinine Ratio Calculated Osmolality Calcium Venous Ioniz Calcium Magnesium Total Bilirubin Direct Bilirubin AST ALT Alkaline Phosphatase Total Creatine Kinase 397 H D CK-MB (CK-2) 15.0 H CK and CKMB Interp 3.8 Troponin I 2.600 H D Total Protein Albumin Globulin Albumin/Globulin Ratio Blood Type Antibody Screen Crossmatch 03/07/17 03/07/17 03/07/17 04:10 04:10 08:05 WBC RBC Hgb Hct MCV MCH MCHC RDW Plt Count MPV Neut % (Auto) Lymph % (Auto) [place] % (Auto) Eos % (Auto) Baso % (Auto) Neut # (Auto) Lymph # (Auto) [place] # (Auto) Eos # (Auto) Baso # (Auto) Immature Gran % Nucleated RBC % Immature Gran # Nucleated RBCs # INR PT Patient/Control Mix Circ Anticoag PTT Patient Temperature ABG pH 7.400 7.412 ABG pH at Pt Temp ABG pCO2 39.0 39.3 ABG pCO2 at Pt Temp ABG pO2 105.0 H 90.4 ABG pO2 at Pt Temp ABG HCO3 24.0 24.8 ABG Total CO2 22.2 L 22.3 L ABG O2 Saturation 97.8 96.9 ABG Base Excess -0.5 0.5 ABG Sodium VBG pH VBG pCO2 VBG pO2 VBG HCO3 VBG Total CO2 VBG O2 Saturation VBG Base Excess Hemoglobin 9.3 L 11.3 L D Hematocrit 28.8 L 34.7 L Potassium 4.1 3.9 4.2 Glucose 119 H 125 H 112 H Ionized Calcium FiO2 Sodium 145 Chloride 110 H Carbon Dioxide 25 Anion Gap 14.1 BUN 16 Creatinine 0.80 GFR Calculation 131 BUN/Creatinine Ratio 20.00 Calculated Osmolality 289.7 Calcium 8.8 Venous Ioniz Calcium Magnesium 2.1 Total Bilirubin 0.60 Direct Bilirubin 0.20 AST 37 ALT 22 Alkaline Phosphatase 52 Total Creatine Kinase CK-MB (CK-2) CK and CKMB Interp Troponin I Total Protein 5.7 L Albumin 3.5 Globulin 2.2 L Albumin/Globulin Ratio 1.5 Blood Type Antibody Screen Crossmatch Quality Measures - VTE Contraindication to Pharmacological VTE Prophylaxis: High Risk of Bleeding Specialty Discharge - Follow Up or Referrals
[2017-03-07] MEDS ORDERED: FUROSEMIDE 40 MG/4 ML VIAL IV ONE (08:32)
[2017-03-07] MEDS: ALBUMIN 5% 12.5 GM in PREMIX 1 EACH IV PRN ×2 (08:45→09:10)
[2017-03-07] MEDS: CHLORHEXIDINE 0.12% ORAL RINSE 60 ML BOTTLE SWISH/SPIT SCH ×3 (09:07→21:35)
[2017-03-07] MEDS ORDERED: ZALEPLON 5 MG CAPSULE PO PRN (09:13)
[2017-03-07] MEDS ORDERED: ACETAMINOPHEN 325 MG TABLET PO PRN (09:13)
[2017-03-07] MEDS ORDERED: MAGNESIUM HYDROXIDE SUSP 30 ML UDCUP PO PRN (09:13)
[2017-03-07] MEDS ORDERED: oxyCODONE/ACETAMINOPHEN 5-325 MG TABLET PO PRN (09:13)
[2017-03-07] MEDS ORDERED: MORPHINE 2 MG/1 ML SYRINGE IV PRN (09:13)
[2017-03-07] MEDS ORDERED: GLUCAGON 1 MG VIAL IM PRN ×2 (09:13)
[2017-03-07] MEDS ORDERED: ONDANSETRON 4 MG/2 ML VIAL IV PRN (09:13)
[2017-03-07] MEDS ORDERED: MAGNESIUM SULF RIDER 4 GM in PREMIX 1 EACH IV PRN (09:13)
[2017-03-07] MEDS ORDERED: ALUMINUM/MAGNES/SIMETH MAX STR 30 ML UDCUP PO PRN (09:13)
[2017-03-07] MEDS ORDERED: DEXTROSE 50% 25 GM/50 ML VIAL IV PRN ×2 (09:13)
[2017-03-07] MEDS ORDERED: POTASSIUM CHLORIDE 20 MEQ TABLET PO PRN (09:13)
[2017-03-07] MEDS ORDERED: MAGNESIUM SULF RIDER 2 GM in PREMIX 1 EACH IV PRN (09:13)
[2017-03-07] MEDS ORDERED: SODIUM CHLOR 0.45% KCL 20 MEQ 20 MEQ/1,000 ML BAG IV SCH (09:30)
[2017-03-07] MEDS: PANTOPRAZOLE 40 MG TABLET PO SCH (10:10)
[2017-03-07] MEDS: INSULIN REGULAR DRIP 100 ML IV SCH (11:00)
[2017-03-07] MEDS: SODIUM CHLORIDE 0.45% 1,000 ML IV SCH ×2 (11:00)
--- NOTE | 2017-03-07 11:50 | XRay Report ---
History: Postop thoracotomy. Chest tube removal. Evaluate for pneumothorax Date: 03/07/2017 Study: Chest x-ray AP portable Comparison exam: 03/06/2017 There is no evidence of a pneumothorax following chest tube removal. The right IJ central line and right subclavian Eek-Jennifer catheter remain in place. The endotracheal and nasogastric tubes have been removed. There is stable cardiomegaly. The mediastinal contours are stable. The pulmonary vasculature is not engorged. There is some continued hazy increased density over the left mid to lower hemithorax which may represent a combination of layering pleural effusion and left basilar atelectasis. The right lung is clear. Osseous structures are unchanged. Impression: No evidence of pneumothorax following chest tube removal. Interval extubation and nasogastric tube removal. Continued increased density over the lower left hemithorax related to left lower lobe atelectasis and layering left pleural effusion PROCEDURE INTERPRETED AT [facility] DEPARTMENT OF RADIOLOGY Final Report Signed by: Dr. Mireya Wang
[2017-03-07 12:12] LABS: ABG Base Excess 0.9 MMOL/L (-2.5-2.5); ABG HCO3 25.2 MMOL/L (20-26); ABG Oxygen Saturation 94.9 % (95-100); ABG PCO2 36.5 MM HG (35-48); ABG PO2 72.3 MM HG (80-95); ABG TCO2 22.3 MMOL/L (23-27); Glucose Heart Surgery 132 MG/DL (74-106); Hematocrit Heart Surgery 32.9 PERCENT (42-52); Hemoglobin Heart Surgery 10.6 G/DL (14.0-18.0); Potassium Heart/CVR 3.8 MMOL/L (3.5-5.1)
[2017-03-07 13:57] LABS: CKMB % 2.9 %
[2017-03-07 13:58] LABS: Troponin I Only 1.57 NG/ML (0.00-0.045)
--- NOTE | 2017-03-07 14:42 | Hospitalist Consult Note ---
Assessment and Plan (1) Coronary artery disease Status: Acute Current Visit: Yes (2) Status post coronary artery bypass graft Status: Acute Assessment and plan: One day status post three-vessel CABG. The patient continues to do well. Sitting up in chair. No shortness of breath or chest pain. Hemodynamically stable. Current Visit: Yes History of Present Illness - Consult Narrative Reason for consult: Medical management History of present illness: Mr. Matt is a 57 year old male who is now status post a three-vessel bypass graft. He has been extubated on yesterday and transferred to a floor today. He is resting comfortably. Medicine has been consulted for medical management. The gentleman denies any shortness of breath or chest pain. He is visiting with family and is without complaints. He is hemodynamically stable. Metabolic 's are stable. His glucoses have been stable. CC: Kathy Cho - Home Medications and Allergies Home Medications: Home Medications Medication Instructions Recorded Confirmed Type Aspirin EC Tab 81 mg PO DAILY 03/04/17 03/04/17 History Allergies/Adverse Reactions: Allergies Allergy/AdvReac Type Severity Reaction Status Date / Time No Known Allergies Allergy Verified 03/04/17 07:05 Medical,Surgical,& Family Hx - Medical History Cardio: History of: CAD, Hypertension Neurology: No history of: Seizures Endocrine: History of: Dyslipidemia - Surgical History Cardiac Surgeries: Sugical HX of: Cardiac Catheterization Abdominal Surgeries: Surgical HX of: Hernia Repair - Family History Family History: Reports;: Family Diabetes - Social History Smoking Status: Former smoker Frequency of Alcohol Use: Frequently (reports drinking between 6-12 cans of beer daily) Type of Drug Use: None - Constitutional Constitutional: Present: fatigue - Cardiovascular Cardiovascular: Absent: chest pain at rest, chest pain with activity - Respiratory Respiratory: Absent: cough - Gastrointestinal Gastrointestinal: Absent: change in bowel habits - Genitourinary Genitourinary: Absent: difficulty urinating - Neurological Neurological: Absent: abnormal gait, abnormal speech Exam - Constitutional Vitals: Period Temp Pulse Resp BP Sys/Schmitt Pulse Ox Last 24 Hr 99.1 F-101.1 F 60-81 10-18 77-145/40-72 91-100 General appearance: over weight - Head Head exam: Present: normal inspection - Eye Pupils: Present: TERESA - Expanded ENT Exam Mouth exam: Present: moist Throat exam: Absent: post pharyngeal edema, post pharyngeal erythema - Neck Neck exam: Present: normal inspection - Respiratory Respiratory exam: Present: clear to auscultation bilaterally - Cardiovascular Cardiovascular exam: Present: regular rate and rhythm - GI/Abdominal GI/Abdominal exam: Present: normal bowel sounds - Extremities Exam Extremities exam: Present: normal inspection - Neurological Exam Neurological exam: Present: alert, oriented X3, CN II-XII intact - Psychiatric Psychiatric exam: Present: normal affect, normal mood - Skin Skin exam: Present: normal color Results - Labs CBC & BMP: 03/07/17 04:10 03/07/17 04:10 Quality Measures - VTE Contraindication to Pharmacological VTE Prophylaxis: High Risk of Bleeding Specialty Discharge - Follow Up or Referrals
[2017-03-07] MEDS: CARVEDILOL 6.25 MG TABLET PO SCH (21:31)
[2017-03-07] MEDS: ATORVASTATIN 40 MG TABLET PO SCH (21:35)
[2017-03-08] MEDS: CARVEDILOL 6.25 MG TABLET PO SCH ×2 (00:02→10:19)
[2017-03-08 04:22] LABS: Basophils % 0.3 % (0.0-0.8); Eosinophils % 0.2 % (0.00-10.9); Hematocrit 24.4 VOL% (42.0-52.0); Hemoglobin 8.3 GM/DL (14.0-18.0); Immature Granulocytes % 0.5 %; Immature Granulocytes Absolute 0.05 #; Lymphocytes # 1.1 10*3/uL (1.4-4.0); Lymphocytes % 11.9 % (21.2-54.2); Mean Corpuscular Hemoglobin 31 PG (27-34); Mean Corpuscular Volume 92.4 FL (87-102); Mean Platelet Volume 10.8 FL (9.6-12.0); Monocytes # 1.4 10*3/uL (0.11-0.8); Neutrophils # 6.8 10*3/uL (1.4-7.4); Neutrophils % 72.1 % (38.7-73.9); Platelet Count 168 T/CUMM (130-400); Red Blood Count 2.64 MC/CUMM (3.8-5.5); Red Cell Distribution Width 11.6 % (9.3-17.3); White Blood Count 9.5 T/CUMM (4-12)
[2017-03-08 05:02] LABS: Alanine Aminotransferase 17 U/L (16-61); Albumin 3.1 G/DL (3.4-5.0); Alkaline Phosphatase 45 U/L (45-117); Aspartate Amino Transferase 21 U/L (0-37); Bilirubin,Indirect 0.8 MG/DL (0.0-1.0); Blood Urea Nitrogen 21 MG/DL (7-18); Calcium 8.8 MG/DL (8.5-10.1); Glucose 118 MG/DL (74-106); Magnesium 2.2 MG/DL (1.8-2.4); Osmolality,Calculated 284.3 MOS/KG (273-304); Sodium 141 MMOL/L (136-145); Total Protein 5.4 G/DL (6.4-8.3)
[2017-03-08] MEDS: KETOROLAC 30 MG/1 ML VIAL IV SCH ×4 (05:32→21:06)
[2017-03-08] MEDS ORDERED: FUROSEMIDE 40 MG/4 ML VIAL IV ONE (06:00)
[2017-03-08 07:08] LABS: Band Neutrophils 1 % (0-10); Hypochromasia 1+; Lymphocytes 11 % (20-55); Microcytosis Slight; Ovalocytes Slight; Platelet Estimate Normal; Segmented Neutrophils 78 % (50-85); Total Cells Counted 100
[2017-03-08] MEDS: SODIUM CHLORIDE 0.9% 1,000 ML IV SCH (07:18)
--- NOTE | 2017-03-08 07:55 | Cardiothoracic Progress Note ---
Cardiothoracic Subjective Interval history: Patient looks and feels okay. Vital signs have been stable and he is breathing comfortably. He has minimal chest discomfort and seems to be controlled with Toradol. We will gradually try to increase his activities today according to routine postoperative protocol. His hematocrit is only 24% but he is going to be diuresis today and we will recheck it in the morning and hopefully be able to avoid transfusion. Exam (Progress Note) - Constitutional Vitals: Period Temp Pulse Resp BP Sys/Schmitt Pulse Ox Last 24 Hr 93.9 F-99.9 F 63-101 12-18 87-126/47-67 90-98 Result/EKG - Labs CBC & BMP: 03/08/17 03:29 03/08/17 03:29 Labs: Laboratory Results - last 24 hr 03/07/17 03/07/17 03/07/17 08:05 12:00 13:17 WBC RBC Hgb Hct MCV MCH MCHC RDW Plt Count MPV Neut % (Auto) Lymph % (Auto) [place] % (Auto) Eos % (Auto) Baso % (Auto) Neut # (Auto) Lymph # (Auto) [place] # (Auto) Eos # (Auto) Baso # (Auto) Total Counted Immature Gran % Nucleated RBC % Immature Gran # Segmented Neutrophils Band Neutrophils Lymphocytes Monocytes Nucleated RBCs # Platelet Estimate Hypochromasia Microcytosis Ovalocytes Morphology Comment ABG pH 7.412 7.440 ABG pCO2 39.3 36.5 ABG pO2 90.4 72.3 L ABG HCO3 24.8 25.2 ABG Total CO2 22.3 L 22.3 L ABG O2 Saturation 96.9 94.9 L ABG Base Excess 0.5 0.9 Hemoglobin 11.3 L D 10.6 L Hematocrit 34.7 L 32.9 L Potassium 4.2 3.8 Glucose 112 H 132 H Sodium Chloride Carbon Dioxide Anion Gap BUN Creatinine GFR Calculation BUN/Creatinine Ratio POC Glucose Calculated Osmolality Calcium Magnesium Total Bilirubin Direct Bilirubin Indirect Bilirubin AST ALT Alkaline Phosphatase Total Creatine Kinase 344 H CK-MB (CK-2) 10.1 H CK and CKMB Interp 2.9 Troponin I 1.570 H D Total Protein Albumin Globulin Albumin/Globulin Ratio 03/07/17 03/08/17 03/08/17 14:57 01:01 03:29 WBC 9.5 RBC 2.64 L Hgb 8.3 L Hct 24.4 L MCV 92.4 MCH 31 MCHC 34.0 RDW 11.6 Plt Count 168 D MPV 10.8 Neut % (Auto) 72.1 Lymph % (Auto) 11.9 L [place] % (Auto) 15.0 H Eos % (Auto) 0.2 Baso % (Auto) 0.3 Neut # (Auto) 6.8 Lymph # (Auto) 1.1 L [place] # (Auto) 1.4 H Eos # (Auto) 0.0 Baso # (Auto) 0.0 Total Counted 100 Immature Gran % 0.5 Nucleated RBC % 0.0 Immature Gran # 0.05 Segmented Neutrophils 78 Band Neutrophils 1 Lymphocytes 11 L Monocytes 10 Nucleated RBCs # 0.00 Platelet Estimate Normal Hypochromasia 1+ Microcytosis Slight Ovalocytes Slight Morphology Comment ABG pH ABG pCO2 ABG pO2 ABG HCO3 ABG Total CO2 ABG O2 Saturation ABG Base Excess Hemoglobin Hematocrit Potassium Glucose Sodium Chloride Carbon Dioxide Anion Gap BUN Creatinine GFR Calculation BUN/Creatinine Ratio POC Glucose 164 H 127 H Calculated Osmolality Calcium Magnesium Total Bilirubin Direct Bilirubin Indirect Bilirubin AST ALT Alkaline Phosphatase Total Creatine Kinase CK-MB (CK-2) CK and CKMB Interp Troponin I Total Protein Albumin Globulin Albumin/Globulin Ratio 03/08/17 03:29 WBC RBC Hgb Hct MCV MCH MCHC RDW Plt Count MPV Neut % (Auto) Lymph % (Auto) [place] % (Auto) Eos % (Auto) Baso % (Auto) Neut # (Auto) Lymph # (Auto) [place] # (Auto) Eos # (Auto) Baso # (Auto) Total Counted Immature Gran % Nucleated RBC % Immature Gran # Segmented Neutrophils Band Neutrophils Lymphocytes Monocytes Nucleated RBCs # Platelet Estimate Hypochromasia Microcytosis Ovalocytes Morphology Comment ABG pH ABG pCO2 ABG pO2 ABG HCO3 ABG Total CO2 ABG O2 Saturation ABG Base Excess Hemoglobin Hematocrit Potassium 4.0 Glucose 118 H Sodium 141 Chloride 107 Carbon Dioxide 25 Anion Gap 13.0 BUN 21 H Creatinine 0.70 GFR Calculation 138 BUN/Creatinine Ratio 30.00 H POC Glucose Calculated Osmolality 284.3 Calcium 8.8 Magnesium 2.2 Total Bilirubin 1.00 Direct Bilirubin 0.20 Indirect Bilirubin 0.8 AST 21 ALT 17 Alkaline Phosphatase 45 Total Creatine Kinase 251 D CK-MB (CK-2) 2.2 D CK and CKMB Interp Troponin I 1.100 H D Total Protein 5.4 L Albumin 3.1 L Globulin 2.3 Albumin/Globulin Ratio 1.3 Quality Measures - VTE Contraindication to Pharmacological VTE Prophylaxis: High Risk of Bleeding Specialty Discharge - Follow Up or Referrals
--- NOTE | 2017-03-08 09:34 | Cardiology Progress Note ---
Cardiology - PN: Subj Interval history: Cardiology note Postop day #2 three-vessel CABG with EPSTEIN graft to LAD, vein graft to obtuse marginal branch and vein graft to right coronary. Preop EF 60%. Telemetry shows sinus rhythm in the 80s Blood pressure 110/74 Good appetite Regular rhythm no murmur or rub Decreased breath sounds but clear Trace leg edema Lab data today White count 9.5 hemoglobin 8.3 hematocrit 24.3. Baseline hemoglobin 12.5 hematocrit 35.7 preop. Sodium 141 potassium 4.0 chloride 107 CO2 25 BUN 21 creatinine 0.70 glucose 118 magnesium 2.2 Impression Postop day #2 three-vessel CABG preop EF 60% Hemoglobin 8.3 hematocrit 24.3. Baseline hemoglobin 12.5 preop PENELOPE suspected Plan Ambulate and monitor Lasix Recheck labs tomorrow Exam (Progress Note) - Constitutional Vitals: Period Temp Pulse Resp BP Sys/Schmitt Pulse Ox Last 24 Hr 93.9 F-99.9 F 65-101 12-18 87-126/47-67 90-98 Result/EKG - Labs CBC & BMP: 03/08/17 03:29 03/08/17 03:29 Labs: Laboratory Results - last 24 hr 03/07/17 03/07/17 03/07/17 12:00 13:17 14:57 WBC RBC Hgb Hct MCV MCH MCHC RDW Plt Count MPV Neut % (Auto) Lymph % (Auto) [place] % (Auto) Eos % (Auto) Baso % (Auto) Neut # (Auto) Lymph # (Auto) [place] # (Auto) Eos # (Auto) Baso # (Auto) Total Counted Immature Gran % Nucleated RBC % Immature Gran # Segmented Neutrophils Band Neutrophils Lymphocytes Monocytes Nucleated RBCs # Platelet Estimate Hypochromasia Microcytosis Ovalocytes Morphology Comment ABG pH 7.440 ABG pCO2 36.5 ABG pO2 72.3 L ABG HCO3 25.2 ABG Total CO2 22.3 L ABG O2 Saturation 94.9 L ABG Base Excess 0.9 Hemoglobin 10.6 L Hematocrit 32.9 L Potassium 3.8 Glucose 132 H Sodium Chloride Carbon Dioxide Anion Gap BUN Creatinine GFR Calculation BUN/Creatinine Ratio POC Glucose 164 H Calculated Osmolality Calcium Magnesium Total Bilirubin Direct Bilirubin Indirect Bilirubin AST ALT Alkaline Phosphatase Total Creatine Kinase 344 H CK-MB (CK-2) 10.1 H CK and CKMB Interp 2.9 Troponin I 1.570 H D Total Protein Albumin Globulin Albumin/Globulin Ratio 03/08/17 03/08/17 03/08/17 01:01 03:29 03:29 WBC 9.5 RBC 2.64 L Hgb 8.3 L Hct 24.4 L MCV 92.4 MCH 31 MCHC 34.0 RDW 11.6 Plt Count 168 D MPV 10.8 Neut % (Auto) 72.1 Lymph % (Auto) 11.9 L [place] % (Auto) 15.0 H Eos % (Auto) 0.2 Baso % (Auto) 0.3 Neut # (Auto) 6.8 Lymph # (Auto) 1.1 L [place] # (Auto) 1.4 H Eos # (Auto) 0.0 Baso # (Auto) 0.0 Total Counted 100 Immature Gran % 0.5 Nucleated RBC % 0.0 Immature Gran # 0.05 Segmented Neutrophils 78 Band Neutrophils 1 Lymphocytes 11 L Monocytes 10 Nucleated RBCs # 0.00 Platelet Estimate Normal Hypochromasia 1+ Microcytosis Slight Ovalocytes Slight Morphology Comment ABG pH ABG pCO2 ABG pO2 ABG HCO3 ABG Total CO2 ABG O2 Saturation ABG Base Excess Hemoglobin Hematocrit Potassium 4.0 Glucose 118 H Sodium 141 Chloride 107 Carbon Dioxide 25 Anion Gap 13.0 BUN 21 H Creatinine 0.70 GFR Calculation 138 BUN/Creatinine Ratio 30.00 H POC Glucose 127 H Calculated Osmolality 284.3 Calcium 8.8 Magnesium 2.2 Total Bilirubin 1.00 Direct Bilirubin 0.20 Indirect Bilirubin 0.8 AST 21 ALT 17 Alkaline Phosphatase 45 Total Creatine Kinase 251 D CK-MB (CK-2) 2.2 D CK and CKMB Interp Troponin I 1.100 H D Total Protein 5.4 L Albumin 3.1 L Globulin 2.3 Albumin/Globulin Ratio 1.3 03/08/17 08:06 WBC RBC Hgb Hct MCV MCH MCHC RDW Plt Count MPV Neut % (Auto) Lymph % (Auto) [place] % (Auto) Eos % (Auto) Baso % (Auto) Neut # (Auto) Lymph # (Auto) [place] # (Auto) Eos # (Auto) Baso # (Auto) Total Counted Immature Gran % Nucleated RBC % Immature Gran # Segmented Neutrophils Band Neutrophils Lymphocytes Monocytes Nucleated RBCs # Platelet Estimate Hypochromasia Microcytosis Ovalocytes Morphology Comment ABG pH ABG pCO2 ABG pO2 ABG HCO3 ABG Total CO2 ABG O2 Saturation ABG Base Excess Hemoglobin Hematocrit Potassium Glucose Sodium Chloride Carbon Dioxide Anion Gap BUN Creatinine GFR Calculation BUN/Creatinine Ratio POC Glucose 151 H Calculated Osmolality Calcium Magnesium Total Bilirubin Direct Bilirubin Indirect Bilirubin AST ALT Alkaline Phosphatase Total Creatine Kinase CK-MB (CK-2) CK and CKMB Interp Troponin I Total Protein Albumin Globulin Albumin/Globulin Ratio Quality Measures - VTE Contraindication to Pharmacological VTE Prophylaxis: High Risk of Bleeding Specialty Discharge - Follow Up or Referrals
--- NOTE | 2017-03-08 09:51 | Hospitalist Progress Note ---
Assessment and Plan (1) Coronary artery disease Status: Acute Assessment and plan: Postop day #2; blood sugars have been stable. Blood pressures have been stable. We will continue sliding scale coverage as previously ordered. Will recheck labs in a.m. Current Visit: Yes (2) Hypertension Status: Resolved Current Visit: Yes Hospitalist: Subjective Interval history: Patient seen and examined; no significant overnight events reported. Exam - Constitutional Vitals: Period Temp Pulse Resp BP Sys/Schmitt Pulse Ox Last 24 Hr 93.9 F-99.9 F 65-101 12-18 87-126/47-67 90-98 General appearance: normal weight, no acute distress - Head Head exam: Present: normal inspection, normocephalic - Eye Eye exam: Present: EOMI, conjunctival injection Pupils: Present: TERESA, normal accommodation - ENT ENT exam: Present: normal exam, normal external ear exam, normal oropharynx - Expanded ENT Exam Mouth exam: Present: moist Throat exam: Absent: post pharyngeal edema, post pharyngeal erythema - Neck Neck exam: Present: normal inspection. Absent: lymphadenopathy, meningismus, thyromegaly - Respiratory Respiratory exam: Present: clear to auscultation bilaterally. Absent: rales, rhonchi, stridor, wheezes - Cardiovascular Cardiovascular exam: Present: regular rate and rhythm. Absent: carotid bruit, diastolic murmur, gallop, JVD, rubs, systolic murmur - GI/Abdominal GI/Abdominal exam: Present: normal bowel sounds, soft - Extremities Exam Extremities exam: Present: normal inspection, normal capillary refill, full ROM - Back Exam Back exam: Present: normal inspection - Neurological Exam Neurological exam: Present: alert, oriented X3, CN II-XII intact - Psychiatric Psychiatric exam: Present: normal affect, normal mood - Skin Skin exam: Present: normal color, warm, dry Results - Labs CBC & BMP: 03/08/17 03:29 03/08/17 03:29 Lab Results: I have reviewed the past 24 hour labs Quality Measures - VTE Contraindication to Pharmacological VTE Prophylaxis: High Risk of Bleeding Specialty Discharge - Follow Up or Referrals
--- NOTE | 2017-03-08 10:07 | XRay Report ---
History: Shortness of breath Date: 03/08/2017 Study: Chest x-ray AP portable Comparison exam: 03/07/2017 The right subclavian Lindon-Jennifer catheter has been removed without complication. The right IJ central line remains in satisfactory position. There is no pneumothorax. There is continued cardiomegaly. The mediastinal contours are stable. The pulmonary vasculature is not engorged. There is continued left basilar atelectasis and pleural effusion with slight interval improvement. There is mildly increased right lower lobe atelectasis. Osseous structures are unchanged. Impression: Interval removal of the Lindon-Jennifer catheter without pneumothorax. Continued left basilar atelectasis and pleural effusion, slightly improved. Developing mild right lower lobe atelectasis PROCEDURE INTERPRETED AT [facility] DEPARTMENT OF RADIOLOGY Final Report Signed by: Dr. Mireya Wang
[2017-03-08] MEDS: FERROUS SULFATE 325 MG TABLET PO SCH (10:18)
[2017-03-08] MEDS: ASPIRIN EC 325 MG TABLET PO SCH (10:18)
[2017-03-08] MEDS: PANTOPRAZOLE 40 MG TABLET PO SCH (10:18)
[2017-03-08] MEDS: DOCUSATE SODIUM 100 MG CAPSULE PO SCH (10:19)
[2017-03-08] MEDS: CHLORHEXIDINE 0.12% ORAL RINSE 60 ML BOTTLE SWISH/SPIT SCH ×2 (10:19→21:08)
[2017-03-08] MEDS: ATORVASTATIN 40 MG TABLET PO SCH (21:08)
[2017-03-09] MEDS: CARVEDILOL 6.25 MG TABLET PO SCH ×3 (03:51→20:43)
[2017-03-09] MEDS: KETOROLAC 30 MG/1 ML VIAL IV SCH ×4 (04:28→20:44)
[2017-03-09 05:34] LABS: Alanine Aminotransferase 22 U/L (16-61); Albumin 3.2 G/DL (3.4-5.0); Alkaline Phosphatase 53 U/L (45-117); Aspartate Amino Transferase 17 U/L (0-37); Bilirubin,Indirect 0.6 MG/DL (0.0-1.0); Blood Urea Nitrogen 30 MG/DL (7-18); Calcium 8.6 MG/DL (8.5-10.1); Glucose 107 MG/DL (74-106); Magnesium 2.4 MG/DL (1.8-2.4); Osmolality,Calculated 282.5 MOS/KG (273-304); Potassium 3.9 MMOL/L (3.5-5.1); Sodium 139 MMOL/L (136-145)
[2017-03-09 05:37] LABS: Troponin I Only 0.553 NG/ML (0.00-0.045)
[2017-03-09 05:41] LABS: Basophils # 0.1 10*3/uL (0.0-0.2); Basophils % 0.5 % (0.0-0.8); Eosinophils # 0.2 10*3/uL (0.0-0.87); Eosinophils % 1.4 % (0.00-10.9); Hematocrit 23.1 VOL% (42.0-52.0); Immature Granulocytes % 0.6 %; Immature Granulocytes Absolute 0.07 #; Lymphocytes # 1.9 10*3/uL (1.4-4.0); Lymphocytes % 17.3 % (21.2-54.2); Mean Corpuscular HGB Conc 34.6 GM/DL (32-36); Mean Corpuscular Hemoglobin 32 PG (27-34); Mean Corpuscular Volume 92.4 FL (87-102); Mean Platelet Volume 10.8 FL (9.6-12.0); Monocytes # 1.6 10*3/uL (0.11-0.8); Monocytes % 14.3 % (1.7-12.7); Neutrophils # 7.1 10*3/uL (1.4-7.4); Neutrophils % 65.9 % (38.7-73.9); Platelet Count 178 T/CUMM (130-400); Red Cell Distribution Width 11.4 % (9.3-17.3); White Blood Count 10.8 T/CUMM (4-12)
--- NOTE | 2017-03-09 06:24 | Cardiothoracic Progress Note ---
Cardiothoracic Subjective Interval history: Patient looks and feels okay. Vital signs have been stable and is breathing comfortably. His lab work and x-rays looked basically okay however he does have mild to moderate left pleural effusion and his hematocrit has dropped to 23 %. I think we will go ahead and transfuse him at this point. I do not think he is actively bleeding at this time but I think this represents surgical blood loss and equilibration. We will give him 2 units of packed red cells today. Exam (Progress Note) - Constitutional Vitals: Period Temp Pulse Resp BP Sys/Schmitt Pulse Ox Last 24 Hr 96.6 F-99.4 F 78-96 16-20 86-101/43-60 89-95 Result/EKG - Labs CBC & BMP: 03/09/17 04:24 03/09/17 04:24 Labs: Laboratory Results - last 24 hr 03/05/17 03/08/17 03/08/17 05:12 03:29 08:06 WBC RBC Hgb Hct MCV MCH MCHC RDW Plt Count MPV Neut % (Auto) Lymph % (Auto) [place] % (Auto) Eos % (Auto) Baso % (Auto) Neut # (Auto) Lymph # (Auto) [place] # (Auto) Eos # (Auto) Baso # (Auto) Total Counted 100 Immature Gran % Nucleated RBC % Immature Gran # Segmented Neutrophils 78 Band Neutrophils 1 Lymphocytes 11 L Monocytes 10 Nucleated RBCs # Platelet Estimate Normal Hypochromasia 1+ Microcytosis Slight Ovalocytes Slight Morphology Comment Sodium Potassium Chloride Carbon Dioxide Anion Gap BUN Creatinine GFR Calculation BUN/Creatinine Ratio Glucose POC Glucose 151 H Calculated Osmolality Calcium Magnesium Total Bilirubin Direct Bilirubin Indirect Bilirubin AST ALT Alkaline Phosphatase Total Creatine Kinase CK-MB (CK-2) Troponin I Total Protein Albumin Globulin Albumin/Globulin Ratio Crossmatch See Detail 03/08/17 03/08/17 03/08/17 11:53 16:47 20:02 WBC RBC Hgb Hct MCV MCH MCHC RDW Plt Count MPV Neut % (Auto) Lymph % (Auto) [place] % (Auto) Eos % (Auto) Baso % (Auto) Neut # (Auto) Lymph # (Auto) [place] # (Auto) Eos # (Auto) Baso # (Auto) Total Counted Immature Gran % Nucleated RBC % Immature Gran # Segmented Neutrophils Band Neutrophils Lymphocytes Monocytes Nucleated RBCs # Platelet Estimate Hypochromasia Microcytosis Ovalocytes Morphology Comment Sodium Potassium Chloride Carbon Dioxide Anion Gap BUN Creatinine GFR Calculation BUN/Creatinine Ratio Glucose POC Glucose 147 H 130 H 112 H Calculated Osmolality Calcium Magnesium Total Bilirubin Direct Bilirubin Indirect Bilirubin AST ALT Alkaline Phosphatase Total Creatine Kinase CK-MB (CK-2) Troponin I Total Protein Albumin Globulin Albumin/Globulin Ratio Crossmatch 03/09/17 03/09/17 04:24 04:24 WBC 10.8 RBC 2.50 L Hgb 8.0 L Hct 23.1 L MCV 92.4 MCH 32 MCHC 34.6 RDW 11.4 Plt Count 178 MPV 10.8 Neut % (Auto) 65.9 Lymph % (Auto) 17.3 L [place] % (Auto) 14.3 H Eos % (Auto) 1.4 Baso % (Auto) 0.5 Neut # (Auto) 7.1 Lymph # (Auto) 1.9 [place] # (Auto) 1.6 H Eos # (Auto) 0.2 Baso # (Auto) 0.1 Total Counted Immature Gran % 0.6 Nucleated RBC % 0.0 Immature Gran # 0.07 Segmented Neutrophils Band Neutrophils Lymphocytes Monocytes Nucleated RBCs # 0.00 Platelet Estimate Hypochromasia Microcytosis Ovalocytes Morphology Comment Sodium 139 Potassium 3.9 Chloride 104 Carbon Dioxide 25 Anion Gap 13.9 BUN 30 H Creatinine 0.80 GFR Calculation 131 BUN/Creatinine Ratio 37.00 H Glucose 107 H POC Glucose Calculated Osmolality 282.5 Calcium 8.6 Magnesium 2.4 Total Bilirubin 0.90 Direct Bilirubin 0.30 H Indirect Bilirubin 0.6 AST 17 ALT 22 Alkaline Phosphatase 53 Total Creatine Kinase 175 D CK-MB (CK-2) < 1.0 Troponin I 0.553 H D Total Protein 6.0 L Albumin 3.2 L Globulin 2.8 Albumin/Globulin Ratio 1.1 Crossmatch Quality Measures - VTE Contraindication to Pharmacological VTE Prophylaxis: High Risk of Bleeding Specialty Discharge - Follow Up or Referrals
[2017-03-09] MEDS ORDERED: SODIUM CHLORIDE 0.9% 250 ML IV PRN (06:25)
[2017-03-09 06:57] LABS: Hypochromasia Slight; Microcytosis Slight
[2017-03-09 06:59] LABS: Platelet Estimate Adequate
--- NOTE | 2017-03-09 07:56 | XRay Report ---
Exam: XR chest 1V portable Date: 03/09/2017 4:00 AM Indication: Shortness of breath Comparison: 03/08/2017 Technical: AP portable Findings: Cardiomegaly is present. A right IJ catheter is present. Previous sternotomy. Low volume effusions left greater than right. Atelectatic change in the right perihilar region. No pneumothorax. Mediastinum is unremarkable otherwise. Impression: 1. Stable position IJ catheter 2. Cardiomegaly sternotomy wires and low volume effusions similar to previous examination 3. Minimal atelectatic change right infrahilar region which is new PROCEDURE INTERPRETED AT [facility] DEPARTMENT OF RADIOLOGY Final Report Signed by: Dr. Ancelmo Ortiz
[2017-03-09] MEDS: DOCUSATE SODIUM 100 MG CAPSULE PO SCH (09:02)
[2017-03-09] MEDS: ASPIRIN EC 325 MG TABLET PO SCH (09:02)
[2017-03-09] MEDS: PANTOPRAZOLE 40 MG TABLET PO SCH (09:02)
[2017-03-09] MEDS: FERROUS SULFATE 325 MG TABLET PO SCH (09:02)
--- NOTE | 2017-03-09 11:14 | Cardiology Progress Note ---
Assessment and Plan - Time spent with patient Time spent with patient: Greater than 30 minutes (1) Dyslipidemia Status: Chronic Assessment and plan: SEE PLAN OF CARE LISTED BELOW Current Visit: Yes (2) Unspecified sleep apnea Status: Chronic Assessment and plan: SEE PLAN OF CARE LISTED BELOW Current Visit: Yes (3) Coronary artery disease Status: Chronic Assessment and plan: SEE PLAN OF CARE LISTED BELOW Current Visit: Yes (4) Status post coronary artery bypass graft Status: Chronic Assessment and plan: SEE PLAN OF CARE LISTED BELOW Current Visit: Yes (5) Hypertension Status: Acute Assessment and plan: SEE PLAN OF CARE LISTED BELOW Current Visit: Yes Cardiology - PN: Subj 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 MAK SUMMARY: 57WM, admitted March 04, 2017 for elective cardiac catheterization. Identified was severe CAD. Patient underwent elective CABG, performed by Dr. Tuttle March 06, 2017 with EPSTEIN - LAD, SVG - RCA, SVG - OM. He tolerated the procedure well without complication and over the weekend, was transitioned to our telemetry unit. There is no prior echocardiogram on record but LVEF was assessed with LV gram during [facility], 60%. MARCH 09, 2017: POD 3. Sitting up in the bedside chair, patient reports he is feeling well. He is anemic this morning and will be receiving 2 units of packed red blood cells. He has been ambulating and tolerating this well. Sternotomy and left lower extremity harvest site healing well without dehiscence or drainage. Telemetry reveals no arrhythmia. Systolic blood pressure in the 90s and I suspect this will improve with transfusions. Tolerating aspirin, lipid-lowering agent, low-dose beta blockade. Dr. Diamond has evaluated the patient for sleep apnea. At this point, continue with physical therapy. Will order an echocardiogram to have a baseline. Hopefully, patient will be ready for discharge home in the next few days. ASSESSMENT/PLAN: 1. CAD - stable. Continue ASA, lipid lowering agent, betablockade. 2. S/P CABG X 3 - POD 3 and progressing nicely. Continue physical therapy. 3. HYPERTENSION - this morning, blood pressure a little low. With transfusions, SBP should increase. Tolerating low dose betablocker. 4. DYSLIPIDEMIA - continue newly started Atorvastatin each evening. LDL 82. 5. SLEEP DISORDER - Dr. Diamond addressing. 6. ANEMIA - transfusions this morning. Recheck labs in AM. Exam (Progress Note) - Constitutional Vitals: Period Temp Pulse Resp BP Sys/Schmitt Pulse Ox Last 24 Hr 96.6 F-99.4 F 77-96 16-20 86-99/43-60 89-95 Exam: General: [Appears well with no apparent distress.] [Pleasant and cooperative. ] [Appears comfortable.] HEENT: [PERRL, normocephalic, atraumatic. Mucous membranes moist. No jaundice noted. Conjunctiva moist and clear, sclerae anicteric] Neck: No JVD/HJR, no thyromegaly or lymphadenopathy noted. No carotid bruit appreciated Cardiac: [Regular rate and rhythm.] [No obvious murmur, rub or gallop.] Sternotomy healing well without dehiscence or drainage Lungs: [Clear to auscultation without accessory muscle use to assist the respiratory pattern.] Not requiring oxygen consistently Abdomen: Soft, bowel sounds normoactive. Nontender and nondistended. No abdominal bruit or thrill noted. No masses noted. Musculoskeletal: No fluid collection. Decreased range of motion is noted. Extremities: No clubbing, cyanosis noted. [Trace bilateral lower extremity edema noted.] Upper extremity pulses 2+. Lower extremity pulses 2+. Capillary refill less than 3 seconds. Left lower extremity vein harvesting site without dehiscence. Skin: No unusual lesions or rashes. No skin breakdown appreciated. Neuro: Awake, alert and oriented 3. Moves all extremities well without hemiparesis or paralysis. No essential tremor is appreciated. Result/EKG - Labs CBC & BMP: 03/09/17 04:24 03/09/17 04:24 Lab Results: I have reviewed the past 24 hour labs Labs: Laboratory Results - last 24 hr 03/05/17 03/08/17 03/08/17 05:12 11:53 16:47 WBC RBC Hgb Hct MCV MCH MCHC RDW Plt Count MPV Neut % (Auto) Lymph % (Auto) [place] % (Auto) Eos % (Auto) Baso % (Auto) Neut # (Auto) Lymph # (Auto) [place] # (Auto) Eos # (Auto) Baso # (Auto) Immature Gran % Nucleated RBC % Immature Gran # Nucleated RBCs # Platelet Estimate Hypochromasia Microcytosis Sodium Potassium Chloride Carbon Dioxide Anion Gap BUN Creatinine GFR Calculation BUN/Creatinine Ratio Glucose POC Glucose 147 H 130 H Calculated Osmolality Calcium Magnesium Total Bilirubin Direct Bilirubin Indirect Bilirubin AST ALT Alkaline Phosphatase Total Creatine Kinase CK-MB (CK-2) Troponin I Total Protein Albumin Globulin Albumin/Globulin Ratio Blood Type Antibody Screen Crossmatch See Detail 03/08/17 03/09/17 03/09/17 20:02 04:21 04:24 WBC 10.8 RBC 2.50 L Hgb 8.0 L Hct 23.1 L MCV 92.4 MCH 32 MCHC 34.6 RDW 11.4 Plt Count 178 MPV 10.8 Neut % (Auto) 65.9 Lymph % (Auto) 17.3 L [place] % (Auto) 14.3 H Eos % (Auto) 1.4 Baso % (Auto) 0.5 Neut # (Auto) 7.1 Lymph # (Auto) 1.9 [place] # (Auto) 1.6 H Eos # (Auto) 0.2 Baso # (Auto) 0.1 Immature Gran % 0.6 Nucleated RBC % 0.0 Immature Gran # 0.07 Nucleated RBCs # 0.00 Platelet Estimate Adequate Hypochromasia Slight Microcytosis Slight Sodium Potassium Chloride Carbon Dioxide Anion Gap BUN Creatinine GFR Calculation BUN/Creatinine Ratio Glucose POC Glucose 112 H Calculated Osmolality Calcium Magnesium Total Bilirubin Direct Bilirubin Indirect Bilirubin AST ALT Alkaline Phosphatase Total Creatine Kinase CK-MB (CK-2) Troponin I Total Protein Albumin Globulin Albumin/Globulin Ratio Blood Type O NEGATIVE Antibody Screen Negative Crossmatch See Detail 03/09/17 03/09/17 04:24 07:17 WBC RBC Hgb Hct MCV MCH MCHC RDW Plt Count MPV Neut % (Auto) Lymph % (Auto) [place] % (Auto) Eos % (Auto) Baso % (Auto) Neut # (Auto) Lymph # (Auto) [place] # (Auto) Eos # (Auto) Baso # (Auto) Immature Gran % Nucleated RBC % Immature Gran # Nucleated RBCs # Platelet Estimate Hypochromasia Microcytosis Sodium 139 Potassium 3.9 Chloride 104 Carbon Dioxide 25 Anion Gap 13.9 BUN 30 H Creatinine 0.80 GFR Calculation 131 BUN/Creatinine Ratio 37.00 H Glucose 107 H POC Glucose 118 H Calculated Osmolality 282.5 Calcium 8.6 Magnesium 2.4 Total Bilirubin 0.90 Direct Bilirubin 0.30 H Indirect Bilirubin 0.6 AST 17 ALT 22 Alkaline Phosphatase 53 Total Creatine Kinase 175 D CK-MB (CK-2) < 1.0 Troponin I 0.553 H D Total Protein 6.0 L Albumin 3.2 L Globulin 2.8 Albumin/Globulin Ratio 1.1 Blood Type Antibody Screen Crossmatch - Diagnostic Findings Procedure: Chest x-ray: report reviewed by me - EKG EKG results: interpreted by me EKG shows: sinus rhythm Quality Measures - VTE Contraindication to Pharmacological VTE Prophylaxis: High Risk of Bleeding Specialty Discharge - Follow Up or Referrals
[2017-03-09] MEDS ORDERED: FUROSEMIDE 20 MG/2 ML VIAL IV ONE (11:18)
--- NOTE | 2017-03-09 13:51 | Physician Query Form ---
CLICK EDIT DOCUMENT TO SELECT QUERY ANSWER --> OK --> SIGN Lenka Wilson RN Clinical [employer] W) [phone] (f) [phone] [email or web address]: Make your selection(s) from the choices in EACH section by typing an "x" and enter comments in the comment section. Please use your independent medical judgment in providing your response. This request does not imply that any particular answer is desired or expected. CLINICAL INDICATORS: (Providers should not edit this section) Based on documentation of "anemia" and " I do not think he is actively bleeding at this time but I think this represents surgical blood loss and equilibration. We will give him 2 units of packed red cells today". H/H of 04/29. Based on the above, could you clarify which of the following conditions you are evaluating, treating, and/or monitoring? ( ) Blood loss anemia ( ) acute ( ) chronic ( ) acute on chronic ( ) Acute blood loss anemia on baseline chronic anemia ( ) Acute blood loss anemia as a complication of a procedure ( ) Iron deficiency anemia not associated with blood loss ( ) Dilutional anemia due to IV fluids ( ) Anemia due to chemotherapy ( ) Anemia due to neoplastic disease ( ) Anemia due to chronic kidney disease ( ) Pernicious anemia ( ) Aplastic anemia ( ) Hemolytic anemia ( ) immune ( ) non-immune - please specify cause: ( ) Anemia due to other condition, please specify: ( ) Clinically unable to determine COMMENTS: This was not a CARDIOLOGY note, but a CV Surgery note written by Dr. Tuttle. Please delete from my box and send to Dr. Tuttle. He is attending MD and also wrote the note. Thanks PLEASE ALSO DOCUMENT RESPONSE IN PROGRESS NOTES AND/OR DISCHARGE SUMMARY Use of terms such as suspected, likely, or probable (associated with a specific diagnosis that is being evaluated, monitored, or treated as if it exists) are acceptable and can be restated in the discharge summary if not ruled out. MTDD
[2017-03-09] MEDS: CHLORHEXIDINE 0.12% ORAL RINSE 60 ML BOTTLE SWISH/SPIT SCH ×2 (15:51→20:44)
--- NOTE | 2017-03-09 17:26 | Hospitalist Progress Note ---
Assessment and Plan (1) Coronary artery disease Status: Chronic Assessment and plan: Continue to recover from coronary artery bypass surgery. Current Visit: Yes Qualifiers: Coronary Disease-Associated Artery/Lesion type: bypass graft (2) Status post coronary artery bypass graft Status: Chronic Assessment and plan: One day status post three-vessel CABG. The patient continues to do well. Sitting up in chair. No shortness of breath or chest pain. Hemodynamically stable. Current Visit: Yes (3) Anemia Status: Acute Assessment and plan: Receiving packed red blood cells. Current Visit: Yes Hospitalist: Subjective Interval history: The patient is resting comfortably he is getting 2 units packed red blood cells today. He has been able to ambulate his in his room. He voices no complaints no shortness of breath or chest pain. Exam - Constitutional Vitals: Period Temp Pulse Resp BP Sys/Schmitt Pulse Ox Last 24 Hr 96.6 F-99.5 F 70-96 16-20 88-119/43-80 90-99 General appearance: over weight - Head Head exam: Present: normal inspection - Eye Eye exam: Present: EOMI Pupils: Present: TERESA - Expanded ENT Exam Mouth exam: Present: moist Throat exam: Absent: post pharyngeal edema, post pharyngeal erythema - Respiratory Respiratory exam: Present: clear to auscultation bilaterally - Cardiovascular Cardiovascular exam: Present: regular rate and rhythm - GI/Abdominal GI/Abdominal exam: Present: normal bowel sounds - Extremities Exam Extremities exam: Present: normal inspection - Neurological Exam Neurological exam: Present: alert, oriented X3, CN II-XII intact - Psychiatric Psychiatric exam: Present: normal affect, normal mood - Skin Skin exam: Present: normal color, warm, dry Results - Labs CBC & BMP: 03/09/17 04:24 03/09/17 04:24 Quality Measures - VTE Contraindication to Pharmacological VTE Prophylaxis: High Risk of Bleeding Specialty Discharge - Follow Up or Referrals
--- NOTE | 2017-03-09 18:35 | ECHO Report ---
Shakeel Matt Exam Date: 03/09/2017 13:25 Referring Physician: Technologist: [facility] Age: 57 Ht (in): 69 Wt (lb): 258 Gender: M Exam Location: [facility] Echo Indications: Post Op - Day 3 - CABG, CAD, Essential (primary) hypertension, Sleep disorder, Anemia BP: 94 / 52 HR: 73 Rhythm: Sinus Technical Quality: IMPRESSIONS Normal left ventricular cavity size. Mild concentric left ventricular hypertrophy. Left ventricular ejection fraction is estimated at 60 %. Normal diastolic function. Biatrial enlargement. Mild mitral annular calcification. Trace to mild mitral valve regurgitation. Small pleural effusion. MEASUREMENTS (Male / Female) Normal Values 2D ECHO LV Diastolic Diameter PLAX 4.2 cm 4.2 - 5.9 / 3.9 - 5.3 cm LV Systolic Diameter PLAX 2.8 cm LV Fractional Shortening PLAX 32.4 % IVS Diastolic Thickness 1.4 cm 0.6 - 1.0 / 0.6 - 0.9 cm LVPW Diastolic Thickness 1.3 cm 0.6 - 1.0 / 0.6 - 0.9 cm RV Internal Dim ED PLAX 3.1 cm Aortic Root Diameter 3.4 cm LA Systolic Diameter LX 4.3 cm 3.0 - 4.0 / 2.7 - 3.8 cm DOPPLER TR Peak Velocity 220.0 cm/s TR Peak Gradient 19.4 mmHg FINDINGS Left Ventricle Normal left ventricular cavity size. Mild concentric left ventricular hypertrophy. Left ventricular ejection fraction is estimated at 60 %. Normal diastolic function. Right Ventricle The right ventricle is normal in size and function. Right Atrium The right atrium is mildly enlarged. Left Atrium The left atrium is mildly enlarged. Mitral Valve Morphologically normal mitral valve. Mild mitral annular calcification. Trace to mild mitral valve regurgitation. Aortic Valve Morphologically normal aortic valve without significant sclerosis or stenosis. There is no aortic regurgitation. Tricuspid Valve Morphologically normal tricuspid valve. Trace tricuspid valve regurgitation. Tricuspid regurgitation velocities suggest a PAP of 29 mmHg. Pulmonic Valve Morphologically normal pulmonic valve without significant stenosis. There is no pulmonic regurgitation. Pericardium Normal pericardium without effusion. Small pleural effusion. Aorta Normal ascending aorta dimension. Maikel Viveros (Electronically Signed) Final Date: 09 March 2017 18:35
[2017-03-09] MEDS: ATORVASTATIN 40 MG TABLET PO SCH (20:43)
[2017-03-10] MEDS: KETOROLAC 30 MG/1 ML VIAL IV SCH (04:36)
[2017-03-10 05:05] LABS: Hemoglobin 8.7 GM/DL (14.0-18.0)
[2017-03-10 05:38] LABS: Calcium 8.3 MG/DL (8.5-10.1); Magnesium 2.4 MG/DL (1.8-2.4); Osmolality,Calculated 282.7 MOS/KG (273-304); Potassium 3.8 MMOL/L (3.5-5.1)
[2017-03-10 05:49] LABS: Folate 11.7 NG/ML (5.4-24.0)
[2017-03-10 06:11] LABS: % Iron Saturation 11.6 % (18-50); Ferritin 594.7 ng/ml (26-388)
[2017-03-10] MEDS ORDERED: FUROSEMIDE 40 MG/4 ML VIAL IV ONE (08:31)
--- NOTE | 2017-03-10 08:33 | Cardiothoracic Progress Note ---
Cardiothoracic Subjective Interval history: Patient looks and feels better. Vital signs are stable and is breathing comfortably. His hematocrit is only 25% today after 2 units of blood so we will diurese him again today and recheck his blood work in the morning. He is increasing his activity and is ambulating on his own without difficulty.. Exam (Progress Note) - Constitutional Vitals: Period Temp Pulse Resp BP Sys/Schmitt Pulse Ox Last 24 Hr 97.6 F-99.5 F 64-76 16-20 88-119/49-80 93-100 Result/EKG - Labs CBC & BMP: 03/10/17 04:20 03/10/17 04:20 Labs: Laboratory Results - last 24 hr 03/09/17 03/09/17 03/09/17 04:21 11:20 16:24 Hgb Hct Absolute Retic Percent Retic Retic Hgb Equivalent Sodium Potassium Chloride Carbon Dioxide Anion Gap BUN Creatinine GFR Calculation BUN/Creatinine Ratio Glucose POC Glucose 130 H 142 H Calculated Osmolality Calcium Magnesium Iron TIBC % Saturation Ferritin Vitamin B12 Folate Blood Type O NEGATIVE Antibody Screen Negative Crossmatch See Detail 03/09/17 03/10/17 03/10/17 20:43 04:20 04:20 Hgb Hct Absolute Retic 0.1 Percent Retic 3.0 H Retic Hgb Equivalent 27.7 L Sodium 138 Potassium 3.8 Chloride 103 Carbon Dioxide 24 Anion Gap 14.8 BUN 32 H Creatinine 0.70 GFR Calculation 138 BUN/Creatinine Ratio 45.00 H Glucose 108 H POC Glucose 119 H Calculated Osmolality 282.7 Calcium 8.3 L Magnesium 2.4 Iron TIBC % Saturation Ferritin Vitamin B12 Folate Blood Type Antibody Screen Crossmatch 03/10/17 03/10/17 03/10/17 04:20 04:20 04:20 Hgb 8.7 L Hct 25.0 L Absolute Retic Percent Retic Retic Hgb Equivalent Sodium Potassium Chloride Carbon Dioxide Anion Gap BUN Creatinine GFR Calculation BUN/Creatinine Ratio Glucose POC Glucose Calculated Osmolality Calcium Magnesium Iron 20 L TIBC 172 L % Saturation 11.6 L Ferritin 594.7 H Vitamin B12 521 Folate 11.7 Blood Type Antibody Screen Crossmatch 03/10/17 07:53 Hgb Hct Absolute Retic Percent Retic Retic Hgb Equivalent Sodium Potassium Chloride Carbon Dioxide Anion Gap BUN Creatinine GFR Calculation BUN/Creatinine Ratio Glucose POC Glucose 111 H Calculated Osmolality Calcium Magnesium Iron TIBC % Saturation Ferritin Vitamin B12 Folate Blood Type Antibody Screen Crossmatch Quality Measures - VTE Contraindication to Pharmacological VTE Prophylaxis: High Risk of Bleeding Specialty Discharge - Follow Up or Referrals
[2017-03-10] MEDS: ASPIRIN EC 325 MG TABLET PO SCH (09:09)
[2017-03-10] MEDS: CARVEDILOL 6.25 MG TABLET PO SCH ×2 (09:09→20:00)
[2017-03-10] MEDS: PANTOPRAZOLE 40 MG TABLET PO SCH (09:10)
[2017-03-10] MEDS: DOCUSATE SODIUM 100 MG CAPSULE PO SCH (09:10)
[2017-03-10] MEDS: FERROUS SULFATE 325 MG TABLET PO SCH ×3 (09:10→20:00)
[2017-03-10] MEDS: CHLORHEXIDINE 0.12% ORAL RINSE 60 ML BOTTLE SWISH/SPIT SCH ×2 (09:20→20:01)
--- NOTE | 2017-03-10 11:19 | Cardiology Progress Note ---
Assessment and Plan (1) Coronary artery disease Status: Chronic Assessment and plan: 57-year-old male, status post recent CABG. Still with severe anemia, got transfused today. Borderline low blood pressure. He is feeling better. -Continue aspirin, beta-karma, statin. -Ejection fraction was preserved. BP well controlled. -Iron def anemia. S/p transfusion. Incr Fe suppl to tid, add MVI -Continue PPI Current Visit: Yes Qualifiers: Coronary Disease-Associated Artery/Lesion type: bypass graft (2) Unspecified sleep apnea Status: Chronic Current Visit: Yes (3) Status post coronary artery bypass graft Status: Chronic Current Visit: Yes (4) Hypertension Status: Acute Current Visit: Yes (5) Dyslipidemia Status: Chronic Current Visit: Yes (6) Anemia Status: Acute Current Visit: Yes Cardiology - PN: Subj Interval history: He feels better after transfusion. Iron deficiency. Sinus rhythm, blood pressure is borderline low no issues with ambulation. Exam (Progress Note) - Constitutional Vitals: Period Temp Pulse Resp BP Sys/Schmitt Pulse Ox Last 24 Hr 97.6 F-99.5 F 64-76 16-20 88-119/49-80 93-100 General appearance: normal weight, morbidly obese - Head Head exam: Present: normal inspection, normocephalic - Eye Eye exam: Absent: conjunctival injection, scleral icterus Pupils: Absent: dilated - ENT ENT exam: Present: normal external ear exam - Neck Neck exam: Present: normal inspection - Respiratory Respiratory exam: Present: decreased breath sounds. Absent: rhonchi, wheezes - Cardiovascular Cardiovascular exam: Present: regular rate and rhythm, other (tlc in place). Absent: JVD - Extremities Exam Extremities exam: Present: normal inspection, normal capillary refill. Absent: edema - Back Exam Back exam: Present: normal inspection - Neurological Exam Neurological exam: Present: alert, oriented X3 - Psychiatric Psychiatric exam: Present: normal affect, normal mood - Skin Skin exam: Present: normal color, warm, other (Well-healing sternotomy and venous harvest sites). Absent: cyanosis Result/EKG - Labs CBC & BMP: 03/10/17 04:20 03/10/17 04:20 Lab Results: I have reviewed the past 24 hour labs Labs: Laboratory Results - last 24 hr 03/09/17 03/09/17 03/09/17 04:21 11:20 16:24 Hgb Hct Absolute Retic Percent Retic Retic Hgb Equivalent Sodium Potassium Chloride Carbon Dioxide Anion Gap BUN Creatinine GFR Calculation BUN/Creatinine Ratio Glucose POC Glucose 130 H 142 H Calculated Osmolality Calcium Magnesium Iron TIBC % Saturation Ferritin Vitamin B12 Folate Blood Type O NEGATIVE Antibody Screen Negative Crossmatch See Detail 03/09/17 03/10/17 03/10/17 20:43 04:20 04:20 Hgb Hct Absolute Retic 0.1 Percent Retic 3.0 H Retic Hgb Equivalent 27.7 L Sodium 138 Potassium 3.8 Chloride 103 Carbon Dioxide 24 Anion Gap 14.8 BUN 32 H Creatinine 0.70 GFR Calculation 138 BUN/Creatinine Ratio 45.00 H Glucose 108 H POC Glucose 119 H Calculated Osmolality 282.7 Calcium 8.3 L Magnesium 2.4 Iron TIBC % Saturation Ferritin Vitamin B12 Folate Blood Type Antibody Screen Crossmatch 03/10/17 03/10/17 03/10/17 04:20 04:20 04:20 Hgb 8.7 L Hct 25.0 L Absolute Retic Percent Retic Retic Hgb Equivalent Sodium Potassium Chloride Carbon Dioxide Anion Gap BUN Creatinine GFR Calculation BUN/Creatinine Ratio Glucose POC Glucose Calculated Osmolality Calcium Magnesium Iron 20 L TIBC 172 L % Saturation 11.6 L Ferritin 594.7 H Vitamin B12 521 Folate 11.7 Blood Type Antibody Screen Crossmatch 03/10/17 07:53 Hgb Hct Absolute Retic Percent Retic Retic Hgb Equivalent Sodium Potassium Chloride Carbon Dioxide Anion Gap BUN Creatinine GFR Calculation BUN/Creatinine Ratio Glucose POC Glucose 111 H Calculated Osmolality Calcium Magnesium Iron TIBC % Saturation Ferritin Vitamin B12 Folate Blood Type Antibody Screen Crossmatch - EKG EKG results: interpreted by nc Quality Measures - VTE Contraindication to Pharmacological VTE Prophylaxis: High Risk of Bleeding Specialty Discharge - Follow Up or Referrals
[2017-03-10] MEDS: MULTIVITAMIN (BEROCCA) TABLET PO SCH (11:38)
--- NOTE | 2017-03-10 15:00 | Hospitalist Progress Note ---
Hospitalist: Subjective Interval history: Patient states that he feel better. He denies any CP or SOB. He has not had a bowel movement in several days. He feels constipated. Exam - Constitutional Vitals: Period Temp Pulse Resp BP Sys/Schmitt Pulse Ox Last 24 Hr 97.6 F-99.5 F 64-75 16-20 88-118/49-72 93-100 General appearance: morbidly obese - Head Head exam: Present: normal inspection, atraumatic - Eye Eye exam: Present: EOMI Pupils: Present: TERESA - ENT ENT exam: Present: normal exam - Expanded ENT Exam Mouth exam: Present: moist Throat exam: Absent: post pharyngeal edema, post pharyngeal erythema - Respiratory Respiratory exam: Present: clear to auscultation bilaterally - Cardiovascular Cardiovascular exam: Present: regular rate and rhythm - GI/Abdominal GI/Abdominal exam: Present: normal bowel sounds, soft - Extremities Exam Extremities exam: Present: other (trace edema) Results - Labs CBC & BMP: 03/10/17 04:20 03/10/17 04:20 - Impressions 1. ASCAD s/p CABG: doing well; on statin/asa/coreg; would benefit from chance-i but blood pressure borderline low. echo showed LVH with EF of 60% 2. Anemia: s/p transfusion; monitor h/h; on iron 3. HTN: borderline low; tolerating current agent 4. constipation start bowel regimen Plan: as noted above Quality Measures - VTE Contraindication to Pharmacological VTE Prophylaxis: High Risk of Bleeding Specialty Discharge - Follow Up or Referrals
[2017-03-10] MEDS ORDERED: POLYETHYLENE GLYCOL POWDER 17 GM PACK PO PRN (15:05)
[2017-03-10] MEDS: ATORVASTATIN 40 MG TABLET PO SCH (20:00)
[2017-03-11 05:00] LABS: Basophils # 0.1 10*3/uL (0.0-0.2); Basophils % 0.5 % (0.0-0.8); Eosinophils # 0.3 10*3/uL (0.0-0.87); Eosinophils % 3.2 % (0.00-10.9); Hematocrit 27.3 VOL% (42.0-52.0); Hemoglobin 9.5 GM/DL (14.0-18.0); Immature Granulocytes % 0.4 %; Immature Granulocytes Absolute 0.04 #; Lymphocytes # 1.8 10*3/uL (1.4-4.0); Lymphocytes % 19.8 % (21.2-54.2); Mean Corpuscular HGB Conc 34.8 GM/DL (32-36); Mean Corpuscular Hemoglobin 31 PG (27-34); Mean Corpuscular Volume 90.1 FL (87-102); Mean Platelet Volume 10.2 FL (9.6-12.0); Monocytes # 1.3 10*3/uL (0.11-0.8); Monocytes % 14.6 % (1.7-12.7); Neutrophils # 5.6 10*3/uL (1.4-7.4); Neutrophils % 61.5 % (38.7-73.9); Platelet Count 282 T/CUMM (130-400); Red Blood Count 3.03 MC/CUMM (3.8-5.5); Red Cell Distribution Width 11.7 % (9.3-17.3); White Blood Count 9.1 T/CUMM (4-12)
[2017-03-11 05:40] LABS: Alanine Aminotransferase 62 U/L (16-61); Alkaline Phosphatase 77 U/L (45-117); Aspartate Amino Transferase 36 U/L (0-37); Bilirubin,Indirect 0.4 MG/DL (0.0-1.0); Blood Urea Nitrogen 20 MG/DL (7-18); Calcium 8.6 MG/DL (8.5-10.1); Glucose 100 MG/DL (74-106); Magnesium 2.3 MG/DL (1.8-2.4); Osmolality,Calculated 275.8 MOS/KG (273-304); Sodium 137 MMOL/L (136-145); Total Protein 6.3 G/DL (6.4-8.3)
[2017-03-11 05:41] LABS: Troponin I Only 0.193 NG/ML (0.00-0.045)
--- NOTE | 2017-03-11 07:45 | XRay Report ---
XR chest 2V Indication: Shortness of breath. Comparison: Chest x-ray 03/09/2017 Technique: PA and lateral chest x-ray was performed. Findings: Small left-sided pleural effusion remains present. Improved aeration of left lower lobe is noted. Lungs otherwise grossly clear. Heart size is stable. Sternal wires are unchanged. Right IJ central venous catheter is unchanged. Bones and soft tissues demonstrate no significant interval change. Impression: 1. Improving aeration of the left lung base is demonstrated. Small residual pleural effusion on the left is present. 03/11/2017 7:42 AM PROCEDURE INTERPRETED AT [facility] DEPARTMENT OF RADIOLOGY Final Report Signed by: Dr. Humberto Mckeon
--- NOTE | 2017-03-11 07:50 | Discharge Summary ---
Hospital Course - Hospital Course Hospital Course: History of present illness: Patient is a 57-year-old man who presented with recent onset substernal chest discomfort. He began to notice it about a month ago and it has increased in severity over the past 4 weeks. He was admitted for elective cardiac catheterization. Past medical history review of systems social history and family history are documented in his admission note. Hospital course: Patient was taken to the cardiac Visitor Services Representative where cardiac catheterization revealed severe three-vessel coronary disease. Patient was referred for bypass surgery and at the time of surgery bypass grafts were placed to the obtuse marginal the posterior descending and the anterior descending coronary arteries. Anterior descending was grafted using the left internal mammary artery. Postoperative course was essentially uncomplicated the patient was discharged home on the fifth postoperative day with instructions to return for follow-up in 1 month. Discharge medications are listed below. Specialty Discharge - Follow Up or Referrals Follow up with: Keith Tuttle MD [Physician] - 1 Month Discharge Plan - Discharge Data Disposition: Disch To Home/Self Care Condition at Discharge: Stable Discharge Diet: advance to your usual diet Activity: resume usual activities as tolerated Hygiene: no restrictions Weight Bearing at Discharge: full weight bearing Driving: not for (10 days) - Discharge Medications New Atorvastatin [Lipitor] 40 mg PO BEDTIME #30 tablet Ferrous Sulfate Tab [Feosol Original Tab] 325 mg PO DAILY #30 tablet Carvedilol [Coreg] 6.25 mg PO BID #60 tablet Docusate Sodium Cap [Colace Cap] 100 mg PO DAILY #30 capsule oxyCODONE/ACETAMINOPHEN 5-325 [Percocet 5-325] 1 tablet PO Q4H PRN tablet PRN Reason: Pain Mild (1-3) Continue Aspirin EC Tab 81 mg PO DAILY - Follow Up or Referral - Forms/Instructions Instructions: Left Heart Catheterization (DC), Heart Healthy Diet (GEN), Coronary Artery Bypass Graft, Parcel Post Officer (GEN), Sternal Precautions (GEN), Coronary Intravascular Stent Placement, Parcel Post Officer (GEN) Exam - Constitutional Vitals: Period Temp Pulse Resp BP Sys/Schmitt Pulse Ox Last 24 Hr 97.6 F-99.5 F 64-82 16-20 98-114/55-63 91-100 Discharge Results Procedures and tests throughout hospitalization: Pending Orders 03/05/17 05:12 Fresh Frozen Plasma IN AM Red Blood Cells Leuko Red IN AM Single Donor Platelets IN AM Type and Screen IN AM 03/09/17 10:11 Occult Blood, Stool Routine 03/10/17 04:20 Transferrin IN AM 03/12/17 04:00 XR chest 2V IN AM Bilirubin Profile Adult IN AM Comp Blood Count Auto Diff IN AM Comprehensive Metabolic Panel IN AM Hepatic (Liver) Panel IN AM Magnesium IN AM Troponin,CKMB & Ck Total IN AM Labs on day of discharge: Labs from last 24 hours 03/11/17 03/11/17 03/10/17 04:40 04:40 18:46 WBC 9.1 RBC 3.03 L D Hgb 9.5 L Hct 27.3 L MCV 90.1 MCH 31 MCHC 34.8 RDW 11.7 Plt Count 282 D MPV 10.2 Neut % (Auto) 61.5 Lymph % (Auto) 19.8 L [place] % (Auto) 14.6 H Eos % (Auto) 3.2 Baso % (Auto) 0.5 Neut # (Auto) 5.6 Lymph # (Auto) 1.8 [place] # (Auto) 1.3 H Eos # (Auto) 0.3 Baso # (Auto) 0.1 Immature Gran % 0.4 Nucleated RBC % 0.0 Immature Gran # 0.04 Nucleated RBCs # 0.00 Sodium 137 Potassium 4.0 Chloride 102 Carbon Dioxide 26 Anion Gap 13.0 BUN 20 H Creatinine 0.70 GFR Calculation 138 BUN/Creatinine Ratio 28.00 H Glucose 100 POC Glucose 177 H Calculated Osmolality 275.8 Calcium 8.6 Magnesium 2.3 Total Bilirubin 0.70 Direct Bilirubin 0.30 H Indirect Bilirubin 0.4 AST 36 ALT 62 H Alkaline Phosphatase 77 Total Creatine Kinase 65 D CK-MB (CK-2) < 1.0 Troponin I 0.193 H D Total Protein 6.3 L Albumin 3.0 L Globulin 3.3 Albumin/Globulin Ratio 0.9 L 03/10/17 03/10/17 03/10/17 15:38 11:39 07:53 WBC RBC Hgb Hct MCV MCH MCHC RDW Plt Count MPV Neut % (Auto) Lymph % (Auto) [place] % (Auto) Eos % (Auto) Baso % (Auto) Neut # (Auto) Lymph # (Auto) [place] # (Auto) Eos # (Auto) Baso # (Auto) Immature Gran % Nucleated RBC % Immature Gran # Nucleated RBCs # Sodium Potassium Chloride Carbon Dioxide Anion Gap BUN Creatinine GFR Calculation BUN/Creatinine Ratio Glucose POC Glucose 122 H 112 H 111 H Calculated Osmolality Calcium Magnesium Total Bilirubin Direct Bilirubin Indirect Bilirubin AST ALT Alkaline Phosphatase Total Creatine Kinase CK-MB (CK-2) Troponin I Total Protein Albumin Globulin Albumin/Globulin Ratio DS: Provider Date of admission: 03/04/17 08:48 Primary care physician: MARY KAY Sweet Attending physician on admission: Kathy Cho Consults: 03/04/17 10:07 Consult to Dietitian [CONS] Routine Reason for Dietitian: Other Consult Comment: low salt, low cholesterol, diet 03/07/17 09:13 Consult to Cardiac Rehabilitation [CONS] Routine Reason for Cardiac Rehabilitation: Other Consult Comment: Post CABG/heart surgery Consult to Diabetes Center, Educator [CONS] Routine Reason for Senior Integration Architect: Diabetes Education Initial Insulin Education Consult Comment: insulin education Consult to Dietitian [CONS] Routine Reason for Dietitian: Dietary Consult Consult Comment: Cardiac, low salt, low cholesterol diet Consult to Physical Therapy [CONS] Routine Reason for Physical Therapy: Other Consult Comment: CV Rehab Consult to Physician [CONS] Routine Comment: Management of diabetes Consulting Provider: Consult to Specialist Group: Hospitalist Discharging clinician: Keith Tuttle MD Expected date of discharge: 03/11/17
[2017-03-11 08:22] VITALS: BP 109/67
[2017-03-11] MEDS: FERROUS SULFATE 325 MG TABLET PO SCH (08:53)
[2017-03-11] MEDS: CARVEDILOL 6.25 MG TABLET PO SCH (08:53)
[2017-03-11] MEDS: MULTIVITAMIN (BEROCCA) TABLET PO SCH (08:53)
[2017-03-11] MEDS: PANTOPRAZOLE 40 MG TABLET PO SCH (08:54)
[2017-03-11] MEDS: ASPIRIN EC 325 MG TABLET PO SCH (08:54)
[2017-03-11] MEDS: DOCUSATE SODIUM 100 MG CAPSULE PO SCH (08:54)
[2017-03-11] MEDS: CHLORHEXIDINE 0.12% ORAL RINSE 60 ML BOTTLE SWISH/SPIT SCH (08:55)
--- NOTE | 2017-03-11 10:39 | Cardiology Progress Note ---
Assessment and Plan (1) Coronary artery disease Status: Chronic Assessment and plan: 57-year-old male, status post recent CABG. Iron def anemia, s/p transfusion. had borderline low blood pressure. He is feeling better. -Continue aspirin, beta-karma, statin. -Ejection fraction was preserved. BP well controlled. -Iron def anemia. S/p transfusion. Fe suppl was increased. -Continue PPI -FU with cardiology in 2-4 weeks Current Visit: Yes Qualifiers: Coronary Disease-Associated Artery/Lesion type: bypass graft (2) Unspecified sleep apnea Status: Chronic Current Visit: Yes (3) Status post coronary artery bypass graft Status: Chronic Current Visit: Yes (4) Hypertension Status: Acute Current Visit: Yes (5) Dyslipidemia Status: Chronic Current Visit: Yes (6) Anemia Status: Acute Current Visit: Yes Cardiology - PN: Subj Interval history: No issues with light activity. Hematocrit stable after transfusion. Iron supplements were decreased for iron deficiency anemia. No signs of active bleeding. Exam (Progress Note) - Constitutional Vitals: Period Temp Pulse Resp BP Sys/Schmitt Pulse Ox Last 24 Hr 97.7 F-99.5 F 74-82 16-20 100-114/59-67 91-98 General appearance: normal weight, morbidly obese - Head Head exam: Present: normal inspection, normocephalic - Eye Eye exam: Absent: conjunctival injection Pupils: Absent: dilated - ENT ENT exam: Present: normal external ear exam - Neck Neck exam: Present: normal inspection - Respiratory Respiratory exam: Present: decreased breath sounds. Absent: prolonged expiratory phase - Cardiovascular Cardiovascular exam: Present: regular rate and rhythm. Absent: JVD - GI/Abdominal GI/Abdominal exam: Present: normal bowel sounds. Absent: distended - Extremities Exam Extremities exam: Present: normal inspection, normal capillary refill, other ( Well-healing incision). Absent: edema - Back Exam Back exam: Present: normal inspection - Neurological Exam Neurological exam: Present: alert, oriented X3 - Psychiatric Psychiatric exam: Present: normal affect, normal mood - Skin Skin exam: Present: normal color, warm. Absent: cyanosis Result/EKG - Labs CBC & BMP: 03/11/17 04:40 03/11/17 04:40 Lab Results: I have reviewed the past 24 hour labs Labs: Laboratory Results - last 24 hr 03/10/17 03/10/17 03/10/17 11:39 15:38 18:46 WBC RBC Hgb Hct MCV MCH MCHC RDW Plt Count MPV Neut % (Auto) Lymph % (Auto) [place] % (Auto) Eos % (Auto) Baso % (Auto) Neut # (Auto) Lymph # (Auto) [place] # (Auto) Eos # (Auto) Baso # (Auto) Immature Gran % Nucleated RBC % Immature Gran # Nucleated RBCs # Sodium Potassium Chloride Carbon Dioxide Anion Gap BUN Creatinine GFR Calculation BUN/Creatinine Ratio Glucose POC Glucose 112 H 122 H 177 H Calculated Osmolality Calcium Magnesium Total Bilirubin Direct Bilirubin Indirect Bilirubin AST ALT Alkaline Phosphatase Total Creatine Kinase CK-MB (CK-2) Troponin I Total Protein Albumin Globulin Albumin/Globulin Ratio 03/11/17 03/11/17 03/11/17 04:40 04:40 08:05 WBC 9.1 RBC 3.03 L D Hgb 9.5 L Hct 27.3 L MCV 90.1 MCH 31 MCHC 34.8 RDW 11.7 Plt Count 282 D MPV 10.2 Neut % (Auto) 61.5 Lymph % (Auto) 19.8 L [place] % (Auto) 14.6 H Eos % (Auto) 3.2 Baso % (Auto) 0.5 Neut # (Auto) 5.6 Lymph # (Auto) 1.8 [place] # (Auto) 1.3 H Eos # (Auto) 0.3 Baso # (Auto) 0.1 Immature Gran % 0.4 Nucleated RBC % 0.0 Immature Gran # 0.04 Nucleated RBCs # 0.00 Sodium 137 Potassium 4.0 Chloride 102 Carbon Dioxide 26 Anion Gap 13.0 BUN 20 H Creatinine 0.70 GFR Calculation 138 BUN/Creatinine Ratio 28.00 H Glucose 100 POC Glucose 123 H Calculated Osmolality 275.8 Calcium 8.6 Magnesium 2.3 Total Bilirubin 0.70 Direct Bilirubin 0.30 H Indirect Bilirubin 0.4 AST 36 ALT 62 H Alkaline Phosphatase 77 Total Creatine Kinase 65 D CK-MB (CK-2) < 1.0 Troponin I 0.193 H D Total Protein 6.3 L Albumin 3.0 L Globulin 3.3 Albumin/Globulin Ratio 0.9 L - EKG EKG results: interpreted by me Quality Measures - VTE Contraindication to Pharmacological VTE Prophylaxis: High Risk of Bleeding Specialty Discharge - Follow Up or Referrals Follow up with: Keith Tuttle MD [Physician] - 04/07/17 10:00 am
--- NOTE | 2017-03-16 11:27 | Physician Query Form ---
CLICK EDIT DOCUMENT TO SELECT QUERY ANSWER --> OK --> SIGN eLnka Wilson RN Clinical Dyno Technician W) [phone] (f) [phone] [email or web address] PROVIDERS: Make your selection(s) from the choices in EACH section by typing an "x" and enter comments in the comment section. Please use your independent medical judgment in providing your response. This request does not imply that any particular answer is desired or expected. CLINICAL INDICATORS: (Providers should not edit this section) Based on documentation of "anemia" and " I do not think he is actively bleeding at this time but I think this represents surgical blood loss and equilibration. We will give him 2 units of packed red cells today". H/H of 04/29. Based on the above, could you clarify which of the following conditions you are evaluating, treating, and/or monitoring? (x) Blood loss anemia (x) acute ( ) chronic ( ) acute on chronic ( ) Acute blood loss anemia on baseline chronic anemia ( ) Acute blood loss anemia as a complication of a procedure ( ) Iron deficiency anemia not associated with blood loss ( ) Dilutional anemia due to IV fluids ( ) Anemia due to chemotherapy ( ) Anemia due to neoplastic disease ( ) Anemia due to chronic kidney disease ( ) Pernicious anemia ( ) Aplastic anemia ( ) Hemolytic anemia ( ) immune ( ) non-immune - please specify cause: ( ) Anemia due to other condition, please specify: ( ) Clinically unable to determine COMMENTS: PLEASE ALSO DOCUMENT RESPONSE IN PROGRESS NOTES AND/OR DISCHARGE SUMMARY Use of terms such as suspected, likely, or probable (associated with a specific diagnosis that is being evaluated, monitored, or treated as if it exists) are acceptable and can be restated in the discharge summary if not ruled out. MTDD
== END 2017-03-11 11:00 | disposition home or self-care (01) | DRG 234 ==
LOC: N.CL 06:33 → N.TELES 08:48 → N.CL 11:51 → N.CVR 03-06 10:43 → N.TELES 03-07 13:31
PROVIDERS: ADMIT Internal Medicine Cardiovascular Disease; ATTEND Internal Medicine Cardiovascular Disease
PROC: CLCCHCL (ICD-10-PCS; 2017-03-04 09:15)

== ENCOUNTER 2017-03-16 07:48 | Inpatient (IN) ==
[2017-03-16] MEDS ORDERED: ONDANSETRON 4 MG/2 ML VIAL IV STA (08:18)
--- NOTE | 2017-03-16 08:27 | Emergency Department Note ---
IEli Hilary, am scribing for, and in the presence of, Jenni Kerns DO 08: 20. ILuis F Debra, DO, personally performed the services described in this documentation, ascribed by Tali Benitez in my presence, and it is both accurate and complete [id number] . Arrival - Arrival Chief Complaint: Abdominal / Flank Pain Stated Complaint: poss impactment bowel ED Nursing Triage Note: Pt c/o ?constipation, abd pain, nausea, and vomiting. Pt had CABG on March 06 and has been having problems with constipation since then. Pt was seen at [facility] ER on Thursday given enemas. Mode of Arrival: Ambulatory Limitations: No Limitations Source: Patient, RN Notes Reviewed Time Seen by Provider: 03/16/17 08:05 - History of Present Illness HPI Narrative: Pt is a 57 y/o male presenting to the ED with c/o vomiting and constipation which onset 2 days ago. Pt had a CABG on March 06 and he has not had a BM on his own since then. He was seen at [facility] ER on Thursday and was given enemas and Miralax. Pt confirms abdominal pains, constipation, vomiting and nausea but denies fever. No other complaints or problems stated in the ED. Onset (ago): day(s) Consistency: constant Severity: moderate Severity scale (1-10): 2 Quality: fullness Allergies/Adverse Reactions: Allergies Allergy/AdvReac Type Severity Reaction Status Date / Time No Known Allergies Allergy Verified 03/04/17 07:05 Home Medications: Home Medications Medication Instructions Recorded Confirmed Type Aspirin EC Tab 81 mg PO DAILY 03/04/17 03/16/17 History Atorvastatin [Lipitor] 40 mg PO BEDTIME #30 tablet 03/11/17 03/16/17 Rx Carvedilol [Coreg] 6.25 mg PO BID #60 tablet 03/11/17 03/16/17 Rx Docusate Sodium Cap [Colace Cap] 100 mg PO DAILY #30 capsule 03/11/17 03/16/17 Rx Bisacodyl Tab [Dulcolax Tab] 5 mg PO QPM 03/16/17 03/16/17 History Cetirizine Tab [ZyrTEC Tab] 10 mg PO DAILY 03/16/17 03/16/17 History Levofloxacin Tab [Levaquin Tab] 500 mg PO DAILY 03/16/17 03/16/17 History Polyethylene Glycol Powder 17 gm PO BID 03/16/17 03/16/17 History [Miralax] Review of System - Review of System 12 point system: reviewed and no additional remarkable complaints except as stated - Review of System Constitutional: Absent: fever Cardiovascular: Absent: chest pain Gastrointestinal: Present: abdominal pain, nausea, vomiting, constipation Medical,Surgical,& Family Hx - Medical History Cardio: History of: CAD, Hypertension Neurology: No history of: Seizures Endocrine: History of: Dyslipidemia - Surgical History Cardiac Surgeries: Sugical HX of: Cardiac Catheterization, Cardiac Surgery (CABG ) Abdominal Surgeries: Surgical HX of: Hernia Repair - Family History Family History: Reports;: Family Diabetes - Social History Smoking Status: Former smoker Exam Vital Signs: Vital Signs Temperature 96.7 F L 03/16/17 08:09 Pulse Rate 72 03/16/17 09:15 Respiratory Rate 18 03/16/17 09:15 Blood Pressure 123/78 03/16/17 09:15 O2 Sat by Pulse Oximetry 98 03/16/17 07:52 - General General appearance: alert, in no apparent distress - Head Head exam: Present: atraumatic, normocephalic - Eye Eye exam: Present: normal appearance, PERRL, EOMI - ENT ENT exam: Present: mucous membranes moist, TM's normal bilaterally. Absent: mucous membranes dry - Neck Neck exam: Present: full ROM, trachea midline. Absent: tenderness - Chest Chest inspection: Present: symmetric chest wall rise, other (scar consistent with recent open heart surgery looks good). Absent: tenderness - Respiratory Respiratory exam: Present: normal lung sounds bilaterally. Absent: respiratory distress - Cardiovascular Cardiovascular exam: Present: regular rate, normal rhythm, normal heart sounds. Absent: murmur, rubs, gallop - Abdominal Exam Abdominal exam: Present: distention, tenderness (diffusely ), hypoactive bowel sounds - Extremities Exam Extremities exam: Present: full ROM, other (scar on left lower leg consistent with recent open heart surgery is weeping.). Absent: tenderness - Back Exam Back exam: Present: full ROM. Absent: tenderness - Neurological Exam Neurological exam: Present: alert, oriented X3, CN II-XII intact. Absent: motor sensory deficit - Psychiatric Psychiatric exam: Present: normal affect, normal mood - Skin Skin exam: Present: warm, dry, intact, normal color. Absent: rash Results - Labs CBC & BMP: 03/16/17 08:51 03/16/17 08:51 Lab Results: I have reviewed the patients labs Labs: Laboratory Tests 03/16/17 08:51 WBC 11.7 RBC 3.41 L Hgb 10.6 L Hct 30.3 L Plt Count 550 H Lymph % (Auto) 15.1 L Neut # (Auto) 8.4 H [place] # (Auto) 1.3 H Laboratory Tests 03/16/17 08:51 Sodium 135 L Potassium 4.2 Chloride 103 Carbon Dioxide 23 BUN 15 Creatinine 0.60 L BUN/Creatinine Ratio 25.00 H Glucose 107 H Calculated Osmolality 270.1 L Total Protein 6.7 Albumin 3.0 L Globulin 3.7 H Albumin/Globulin Ratio 0.8 L - Diagnostic Findings Procedure: Abdominal x-ray: report reviewed by me (Diffuse gaseous distention of small bowel loops and colon suggesting a prominent ileus. Continued close clinical and imaging follow-up is recommended)
[2017-03-16] MEDS ORDERED: SODIUM CHLORIDE 0.9% 500 ML IV SCH (08:30)
[2017-03-16 09:08] LABS: Basophils # 0.1 10*3/uL (0.0-0.2); Basophils % 0.6 % (0.0-0.8); Eosinophils # 0.1 10*3/uL (0.0-0.87); Eosinophils % 0.6 % (0.00-10.9); Hematocrit 30.3 VOL% (42.0-52.0); Hemoglobin 10.6 GM/DL (14.0-18.0); Immature Granulocytes % 0.6 %; Immature Granulocytes Absolute 0.07 #; Lymphocytes # 1.8 10*3/uL (1.4-4.0); Lymphocytes % 15.1 % (21.2-54.2); Mean Corpuscular Hemoglobin 31 PG (27-34); Mean Corpuscular Volume 88.9 FL (87-102); Mean Platelet Volume 9.6 FL (9.6-12.0); Monocytes # 1.3 10*3/uL (0.11-0.8); Monocytes % 11.1 % (1.7-12.7); Neutrophils # 8.4 10*3/uL (1.4-7.4); Platelet Count 550 T/CUMM (130-400); Red Blood Count 3.41 MC/CUMM (3.8-5.5); Red Cell Distribution Width 11.8 % (9.3-17.3); White Blood Count 11.7 T/CUMM (4-12)
[2017-03-16] MEDS ORDERED: ONDANSETRON 4 MG/2 ML VIAL ONE (09:13)
--- NOTE | 2017-03-16 09:16 | XRay Report ---
XR abdomen 2V Clinical Information: Abdominal Pain constipation post CABG Comparison: None Findings: There is moderate diffuse dilatation of the colon which is prominently filled with gas/air. There is also moderate gaseous distention of the small bowel within the central abdomen suggesting diffuse small bowel and colonic ileus. No free air is identified. Lung bases appear predominantly clear. There is no acute osseous abnormality. No suspicious osseous lesions are identified. Postsurgical changes of prior CABG noted. Impression: Diffuse gaseous distention of small bowel loops and colon suggesting a prominent ileus. Continued close clinical and imaging follow-up is recommended. PROCEDURE INTERPRETED AT [facility] DEPARTMENT OF RADIOLOGY Final Report Signed by: Jesse Hayden
[2017-03-16 09:39] LABS: Bilirubin,Total 0.5 MG/DL (0.2-1.0); Calcium 9.1 MG/DL (8.5-10.1); Osmolality,Calculated 270.1 MOS/KG (273-304); Potassium 4.2 MMOL/L (3.5-5.1); Total Protein 6.7 G/DL (6.4-8.3)
[2017-03-16] MEDS ORDERED: MAGNESIUM CITRATE 300 ML BOTTLE ONE (09:47)
[2017-03-16] MEDS ORDERED: METOCLOPRAMIDE 10 MG/2 ML VIAL IV STA (09:49)
[2017-03-16] MEDS ORDERED: MAGNESIUM CITRATE 300 ML BOTTLE PO STA ×2 (09:49→11:36)
[2017-03-16] MEDS ORDERED: METOCLOPRAMIDE 10 MG/2 ML VIAL ONE (10:03)
[2017-03-16] MEDS ORDERED: MORPHINE 2 MG/1 ML SYRINGE IV PRN (11:40)
--- NOTE | 2017-03-16 11:55 | Hospitalist History & Physical ---
Assessment and Plan (1) Constipation Status: Acute Assessment and plan: CT scan showed diffuse gaseous distention of small bowel loops and colon suggesting a prominent ileus. The patient was given mag citrate in the ED however has not experienced any results. We will start lactulose every [address] abdomen and pelvis for further evaluation. Current Visit: Yes (2) Hypertension Status: Acute Assessment and plan: Blood pressures are stable at the time of ED presentation. Home medications have been reconciled. Cardiology has been consulted to assist during the clinical encounter. Current Visit: No (3) Coronary artery disease Status: Chronic Assessment and plan: Patient recently underwent coronary artery bypass graft on March 06, 2017. The patient is not experiencing any significant cardiac abnormalities at this time; however we will consult cardiology to assist during the clinical encounter. Current Visit: No Qualifiers: Coronary Disease-Associated Artery/Lesion type: bypass graft (4) Status post coronary artery bypass graft Status: Chronic Assessment and plan: Patient recently underwent coronary artery bypass graft on March 06, 2017. We will consult cardiology to assist during the clinical encounter. Current Visit: No History of Present Illness Chief complaint: Abdominal pain, nausea, and vomiting. History of present illness: This is a very pleasant 49-year-old male that presented to the ED at [facility] this morning for the evaluation of abdominal pain, nausea, and vomiting. Patient has a medical history significant for: Hypertension, coronary artery disease, and dyslipidemia. Patient surgical history significant for cardiac catheterization, hernia repair, and recent coronary artery bypass graft on March 06, 2017. The patient reported the onset of symptoms 2 days prior to presentation. The patient reports that he has experienced difficulty with his bowel regimen since his surgery. The patient was recently seen at [facility]'s ED on Thursday. He reported that he was given multiple enemas and MiraLAX however, he had no relief. Pertinent positives include: Nausea, vomiting, abdominal pain; pertinent negatives include: Fever, syncope, chest pain, melena, hematochezia. Patient was assessed at the time of ED presentation. Labs were obtained; complete blood count reported white blood cell count 11.7, hemoglobin 10.6, hematocrit 30.3, and platelet count at 550. Complete metabolic profile reported sodium at 135, potassium 4.2, chloride 103, BUN 15, creatinine 0.60, glucose 107, and calculated osmolality 270.1. Abdominal x-ray reported diffuse gaseous distention of the small bowel loops and colon suggesting a prominent ileus. After brief discussion with both Dr. Kerns and Dr. Lester, the patient will be admitted to the hospitalist services for continuation of care. Due to the recent coronary artery bypass graft on last month, we will consult cardiology to follow during the clinical encounter. Medications have been reviewed and reconciled. CODE STATUS has been discussed; the patient is a FULL CODE. Home Medications Medication Instructions Recorded Confirmed Type Aspirin EC Tab 81 mg PO DAILY 03/04/17 03/16/17 History Atorvastatin [Lipitor] 40 mg PO BEDTIME #30 tablet 03/11/17 03/16/17 Rx Carvedilol [Coreg] 6.25 mg PO BID #60 tablet 03/11/17 03/16/17 Rx Docusate Sodium Cap [Colace Cap] 100 mg PO DAILY #30 capsule 03/11/17 03/16/17 Rx Bisacodyl Tab [Dulcolax Tab] 5 mg PO QPM 03/16/17 03/16/17 History Cetirizine Tab [ZyrTEC Tab] 10 mg PO DAILY 03/16/17 03/16/17 History Levofloxacin Tab [Levaquin Tab] 500 mg PO DAILY 03/16/17 03/16/17 History Polyethylene Glycol Powder 17 gm PO BID 03/16/17 03/16/17 History [Miralax] Allergies Allergy/AdvReac Type Severity Reaction Status Date / Time No Known Allergies Allergy Verified 03/04/17 07:05 Medical,Surgical,& Family Hx - Medical History Cardio: History of: CAD, Hypertension Neurology: No history of: Seizures Endocrine: History of: Dyslipidemia - Surgical History Cardiac Surgeries: Sugical HX of: Cardiac Catheterization, Cardiac Surgery (CABG ) Abdominal Surgeries: Surgical HX of: Hernia Repair - Family History Family History: Reports;: Family Diabetes - Social History Smoking Status: Former smoker 12 point system: reviewed and no additional remarkable complaints except as stated Exam - Constitutional Vitals: Period Temp Pulse Resp BP Sys/Schmitt Pulse Ox Last 24 Hr 96.7 F-96.7 F 72-77 16-22 117-149/68-89 96-98 General appearance: normal weight, mild distress - Head Head exam: Present: normal inspection, normocephalic, atraumatic - Eye Eye exam: Present: EOMI. Absent: conjunctival injection Pupils: Present: TERESA, normal accommodation - ENT ENT exam: Present: normal exam, normal external ear exam, normal oropharynx - Neck Neck exam: Present: normal inspection. Absent: lymphadenopathy, meningismus, thyromegaly - Respiratory Respiratory exam: Present: clear to auscultation bilaterally. Absent: rales, rhonchi, stridor, wheezes - Cardiovascular Cardiovascular exam: Present: regular rate and rhythm. Absent: carotid bruit, diastolic murmur, gallop, JVD, rubs, systolic murmur - GI/Abdominal GI/Abdominal exam: Present: distended, firm. Absent: hernia, mass, soft - Extremities Exam Extremities exam: Present: normal inspection, normal capillary refill, full ROM. Absent: edema - Back Exam Back exam: Present: normal inspection - Neurological Exam Neurological exam: Present: alert, oriented X3 - Psychiatric Psychiatric exam: Present: normal affect, normal mood - Skin Skin exam: Present: normal color, warm, dry Results - Labs CBC & BMP: 03/16/17 08:51 03/16/17 08:51 Lab Results: I have reviewed the past 24 hour labs Quality Measures - VTE Contraindication to Pharmacological VTE Prophylaxis: Clinical assessment deems Pt at low risk, no prophalaxis needed
[2017-03-16 12:15] LABS: Apearance,Urine CLEAR (Clear); Bilirubin,Urine Negative (Negative); Blood, Urine Negative (Negative); Glucose,Urine (UA) Negative (Negative); Ketones,Urine 20 mg/dL (Negative); Mucus,Urine Many /LPF (Occasional); Nitrite,Urine Negative (Negative); Protein,Urine Negative; RBC,Urine 1 /HPF (0-4); Squamous Epithelial Cell,Urine Occasional /HPF (0-10); Urine Color Yellow (Yellow); Urine Specific Gravity 1.023 (1.001-1.035); WBC,Urine 1 /HPF (0-6)
[2017-03-16] MEDS: SODIUM CHLORIDE 0.9% 1,000 ML IV SCH (13:15)
[2017-03-16] MEDS: LACTULOSE 20 GM/30 ML UDCUP PO SCH ×3 (13:15→21:09)
[2017-03-16] MEDS ORDERED: MAGNESIUM CITRATE 300 ML BOTTLE PO ONE (14:30)
[2017-03-16] MEDS ORDERED: BISACODYL 10 MG SUPP RECTAL ONE (14:30)
--- NOTE | 2017-03-16 15:23 | Cardiology Consult Note ---
Chinyere Barraza April RN, am scribing for, and in the presence of, Sheng Goodman MD 15:19. Assessment and Plan - Time spent with patient Time spent with patient: Greater than 30 minutes (Due to assessment, planning, documentation, medication review) (1) Coronary artery disease Status: Chronic Assessment and plan: He has post coronary bypass surgery and clinically is doing well from this. Current Visit: Yes Qualifiers: Coronary Disease-Associated Artery/Lesion type: bypass graft [place] vs. transplanted heart: [place] heart Associated angina: without angina Qualified Code(s): I25.810 - Atherosclerosis of coronary artery bypass graft(s) without angina pectoris (2) Abdominal pain Status: Acute Assessment and plan: Patient with constipation. Based on his abdominal x-rays he may have an ileus. Current Visit: Yes (3) Constipation Status: Acute Assessment and plan: This is developed slightly before his bypass surgery. This is progressive course since then to now. Current Visit: Yes (4) Hypertension Status: Chronic Assessment and plan: At present his blood pressures are stable. Current Visit: No (5) Dyslipidemia Status: Chronic Assessment and plan: He needs to continue his atorvastatin. Current Visit: Yes (6) Status post coronary artery bypass graft Status: Chronic Assessment and plan: He is status post coronary bypass grafting with saphenous vein graft to the obtuse marginal and right coronary arteries and internal mammary graft to the anterior descending coronary artery on March 06, 2017 Current Visit: No History of Present Illness - Data of Consult Patient: known to practice within the last 3 years Consult date: 03/16/17 Requesting Physician: Herbie Connelly - Consult Narrative Reason for consult: Abdominal pain, nausea, and vomiting History of present illness: Control Room Agent: Dr. Goodman Mr. Matt is a 57 year old male who is followed by Dr. Goodman with a history of CAD, hypertension, and dyslipidemia. He underwent coronary bypass grafting with saphenous vein graft to the obtuse marginal and right coronary arteries and internal mammary graft to the anterior descending coronary artery on February by Dr. Tuttle. He has also had a hernia repair. Family history is positive for father with CAD and brother with diabetes and hypertension. He no longer smokes, stating he quit about 12 years ago. He has not had a bowel movement since his bypass surgery on March 06. He was seen at [facility] emergency department and had multiple enemas and suppositories with no results. Because of abdominal fullness, he has had a decreased appetite. 2-3 days ago he began to have nausea and vomiting as well as abdominal pain. He also reports he has passed no flatus in the last several days. Abdominal x-ray suggested a prominent ileus. He denies any chest pain, shortness of breath, or palpitations. His sternal incision is healing nicely. His left leg donor site incision is without evidence of infection, but the states that it has been weeping and they have been putting antibiotic ointment on it. He denies having any fever, chills, or discomfort to site. Vital signs have been stable. Labs are unremarkable. I reviewed this patient's chart and interviewed and examined the patient myself. I discussed this case with Lesa Whitlock RN. This patient from a cardiovascular point is been stable. His sternum has healed nicely has had no issues with this. He did have some minimal weeping of his left leg graft donor site but this really looks good today. As noted though he has had problems with severe constipation almost obstipation. Enemas etc. have not really done much for him. He was admitted because of progressive abdominal discomfort. He has not had any cardiac issues. CC: Kwan Lester Jr., MD - Home Medications and Allergies Home Medications: Home Medications Medication Instructions Recorded Confirmed Type Aspirin EC Tab 81 mg PO DAILY 03/04/17 03/16/17 History Atorvastatin [Lipitor] 40 mg PO BEDTIME #30 tablet 03/11/17 03/16/17 Rx Carvedilol [Coreg] 6.25 mg PO BID #60 tablet 03/11/17 03/16/17 Rx Docusate Sodium Cap [Colace Cap] 100 mg PO DAILY #30 capsule 03/11/17 03/16/17 Rx Bisacodyl Tab [Dulcolax Tab] 5 mg PO QPM 03/16/17 03/16/17 History Cetirizine Tab [ZyrTEC Tab] 10 mg PO DAILY 03/16/17 03/16/17 History Levofloxacin Tab [Levaquin Tab] 500 mg PO DAILY 03/16/17 03/16/17 History Polyethylene Glycol Powder 17 gm PO BID 03/16/17 03/16/17 History [Miralax] Allergies/Adverse Reactions: Allergies Allergy/AdvReac Type Severity Reaction Status Date / Time No Known Allergies Allergy Verified 03/04/17 07:05 - Constitutional Constitutional: Present: as per HPI - EENT Eyes: Present: requires corrective lense. Absent: blurry vision Ears: Absent: ear pain, tinnitus Nose, mouth and throat: Absent: epistaxis, headache(s), neck pain - Cardiovascular Cardiovascular: Absent: chest pain at rest, chest pain with activity, diaphoresis, dyspnea, dyspnea on exertion, edema, radiating jaw, neck or arm pain, lightheadedness, orthopnea, palpitations - Respiratory Respiratory: Present: cough. Absent: dyspnea, hemoptysis, dyspnea on exertion, wheezing - Gastrointestinal Gastrointestinal: Present: abdominal pain, bloating, constipation, nausea, vomiting. Absent: diarrhea, hematemesis, hematochezia, melena - Genitourinary Genitourinary: Absent: dysuria, hematuria - Musculoskeletal Musculoskeletal: Absent: limited range of motion, muscle weakness - Neurological Neurological: Absent: abnormal gait, abnormal speech, confusion, dizziness, frequent falls, headache(s), syncope - Psychiatric Psychiatric: Absent: anxiety, depression - Hematologic/Lymphatic Hematologic/Lymphatic: Absent: easy bleeding, easy bruising Medical,Surgical,& Family Hx - Medical History Cardio: History of: CAD, Hypertension Endocrine: History of: Dyslipidemia - Surgical History Cardiac Surgeries: Sugical HX of: Cardiac Catheterization, Cardiac Surgery ( CABG March 06, 2017) Abdominal Surgeries: Surgical HX of: Hernia Repair - Family History Family History: Reports;: Family Diabetes (Brother), Family Heart Disease ( Father), Family Hypertension (Brother) - Social History Smoking Status: Former smoker (Quit in 2004) Have you smoked in the last 12 months: No Frequency of Alcohol Use: Frequently Type of Drug Use: None Marital Status: Lives With:: Spouse Functional capacity: independent ambulation Physical Examination Vital Signs Temp Pulse Resp BP Pulse Ox 96.7 F L 76 22 149/89 98 03/16/17 07:52 03/16/17 07:52 03/16/17 07:52 03/16/17 07:52 03/16/17 07:52 General: Present: Appears Well, No Apparent Distress HEENT: Present: PERRL, Mucus Membranes Moist Neck: Present: Supple Neck, Midline Trachea, No Bruit Cardiac: Present: Reg Rate and Rhythm, No Murmur Lungs: Present: Normal Breath Sounds, No Wheeze, Rales, Rhonchi Neuro: Absent: Resting Tremor, Essential Tremor Abdomen: Present: Decreased Bowel Sounds, Firm, Distended Skin: Absent: Rash, Suspicious Lesions Incision: Present: Incision Site (Sternal and leg incisions as noted in HPI) Gait: Present: Normal Gait Extremities: Present: Normal Gait, No Edema, Normal Upper Extr. Pulses, Normal Lower Extr. Pulses, Other (His graft donor site left lower leg looks good.) Result/EKG - Labs CBC & BMP: 03/16/17 08:51 03/16/17 08:51 Lab Results: I have reviewed the past 24 hour labs Labs: Laboratory Results - last 24 hr 03/16/17 03/16/17 03/16/17 08:18 08:51 08:51 WBC 11.7 RBC 3.41 L Hgb 10.6 L Hct 30.3 L MCV 88.9 MCH 31 MCHC 35.0 RDW 11.8 Plt Count 550 H MPV 9.6 Neut % (Auto) 72.0 Lymph % (Auto) 15.1 L [place] % (Auto) 11.1 Eos % (Auto) 0.6 Baso % (Auto) 0.6 Neut # (Auto) 8.4 H Lymph # (Auto) 1.8 [place] # (Auto) 1.3 H Eos # (Auto) 0.1 Baso # (Auto) 0.1 Immature Gran % 0.6 Nucleated RBC % 0.0 Immature Gran # 0.07 Nucleated RBCs # 0.00 Sodium 135 L Potassium 4.2 Chloride 103 Carbon Dioxide 23 Anion Gap 13.2 BUN 15 Creatinine 0.60 L GFR Calculation 146 BUN/Creatinine Ratio 25.00 H Glucose 107 H Calculated Osmolality 270.1 L Calcium 9.1 Total Bilirubin 0.50 AST 19 ALT 42 Alkaline Phosphatase 81 Total Protein 6.7 Albumin 3.0 L Globulin 3.7 H Albumin/Globulin Ratio 0.8 L Free T4 TSH 3rd Generation Urine Color Yellow Urine Appearance Clear Urine pH 6.0 Ur Specific [place] 1.023 Urine Protein Negative Urine Glucose (UA) Negative Urine Ketones 20 Urine Blood Negative Urine Nitrate Negative Urine Bilirubin Negative Urine Urobilinogen 2.0 H Urine Leukocytes Negative Urine RBC 1 Urine WBC 1 Ur Squamous Epith Cells Occasional Urine Mucus Many Ur Culture Indicated? Not indicated 03/16/17 03/16/17 08:51 08:51 WBC RBC Hgb Hct MCV MCH MCHC RDW Plt Count MPV Neut % (Auto) Lymph % (Auto) [place] % (Auto) Eos % (Auto) Baso % (Auto) Neut # (Auto) Lymph # (Auto) [place] # (Auto) Eos # (Auto) Baso # (Auto) Immature Gran % Nucleated RBC % Immature Gran # Nucleated RBCs # Sodium Potassium Chloride Carbon Dioxide Anion Gap BUN Creatinine GFR Calculation BUN/Creatinine Ratio Glucose Calculated Osmolality Calcium Total Bilirubin AST ALT Alkaline Phosphatase Total Protein Albumin Globulin Albumin/Globulin Ratio Free T4 1.49 H TSH 3rd Generation 1.540 Urine Color Urine Appearance Urine pH Ur Specific [place] Urine Protein Urine Glucose (UA) Urine Ketones Urine Blood Urine Nitrate Urine Bilirubin Urine Urobilinogen Urine Leukocytes Urine RBC Urine WBC Ur Squamous Epith Cells Urine Mucus Ur Culture Indicated? - Diagnostic Findings Procedure: Abdominal x-ray: report reviewed by me Quality Measures - VTE Contraindication to Pharmacological VTE Prophylaxis: Clinical assessment deems Pt at low risk, no prophalaxis needed I, Sheng Goodman MD, personally performed the services described in this documentation, ascribed by Lesa Whitlock RN in my presence, and it is both accurate and complete 523 .
[2017-03-16] MEDS: CARVEDILOL 6.25 MG TABLET PO SCH (17:33)
[2017-03-16] MEDS ORDERED: SODIUM PHOSPHATE ENEMA 133 ML BOTTLE RECTAL ONE (19:00)
[2017-03-16] MEDS: BISACODYL 5 MG TABLET PO SCH (21:09)
[2017-03-16] MEDS: DOCUSATE SODIUM 100 MG CAPSULE PO SCH (21:09)
[2017-03-16] MEDS: POLYETHYLENE GLYCOL POWDER 17 GM PACK PO SCH (21:09)
[2017-03-16] MEDS: ATORVASTATIN 40 MG TABLET PO SCH (21:09)
[2017-03-16] MEDS: ONDANSETRON 4 MG/2 ML VIAL IV PRN (21:11)
[2017-03-17] MEDS: LACTULOSE 20 GM/30 ML UDCUP PO SCH ×4 (02:15→15:10)
[2017-03-17] MEDS: SODIUM CHLORIDE 0.9% 1,000 ML IV SCH ×2 (05:35→21:25)
[2017-03-17 06:44] LABS: Basophils # 0.1 10*3/uL (0.0-0.2); Basophils % 0.4 % (0.0-0.8); Eosinophils % 0.3 % (0.00-10.9); Hematocrit 32.6 VOL% (42.0-52.0); Hemoglobin 11.1 GM/DL (14.0-18.0); Immature Granulocytes % 0.6 %; Immature Granulocytes Absolute 0.08 #; Lymphocytes # 1.9 10*3/uL (1.4-4.0); Lymphocytes % 13.7 % (21.2-54.2); Mean Corpuscular Hemoglobin 31 PG (27-34); Mean Corpuscular Volume 89.8 FL (87-102); Mean Platelet Volume 9.3 FL (9.6-12.0); Monocytes # 1.5 10*3/uL (0.11-0.8); Monocytes % 10.9 % (1.7-12.7); Neutrophils # 10.4 10*3/uL (1.4-7.4); Neutrophils % 74.1 % (38.7-73.9); Platelet Count 609 T/CUMM (130-400); Red Blood Count 3.63 MC/CUMM (3.8-5.5); Red Cell Distribution Width 11.8 % (9.3-17.3)
[2017-03-17 07:19] LABS: Albumin 2.9 G/DL (3.4-5.0); Bilirubin,Total 0.5 MG/DL (0.2-1.0); Calcium 9.3 MG/DL (8.5-10.1); Magnesium 2.7 MG/DL (1.8-2.4); Osmolality,Calculated 280.4 MOS/KG (273-304); Potassium 4.6 MMOL/L (3.5-5.1); Total Protein 6.8 G/DL (6.4-8.3)
--- NOTE | 2017-03-17 07:39 | XRay Report ---
XR KUB Clinical Information: Abdominal Pain constipation Comparison: 03/16/2017 radiograph Findings: Diffuse small and large bowel gaseous distention is noted, which is not significantly changed from prior. There is no evidence of free air. There is no acute osseous abnormality. No suspicious osseous lesions are identified. Impression: Diffuse small and large bowel gaseous distention suggesting total bowel ileus or distal colonic obstruction. Continued close clinical and imaging follow-up is recommended. PROCEDURE INTERPRETED AT [facility] DEPARTMENT OF RADIOLOGY Final Report Signed by: Jesse Hayden
[2017-03-17] MEDS ORDERED: DOCUSATE SODIUM 100 MG CAPSULE PO SCH (09:00)
[2017-03-17] MEDS: CETIRIZINE 10 MG TABLET PO SCH (09:42)
[2017-03-17] MEDS: CARVEDILOL 6.25 MG TABLET PO SCH ×2 (09:42→16:36)
[2017-03-17] MEDS: ASPIRIN EC 81 MG TABLET PO SCH (09:42)
[2017-03-17] MEDS: DOCUSATE SODIUM 100 MG CAPSULE PO SCH ×2 (09:42→21:22)
[2017-03-17] MEDS: POLYETHYLENE GLYCOL POWDER 17 GM PACK PO SCH ×2 (10:13→21:23)
--- NOTE | 2017-03-17 10:33 | Hospitalist Progress Note ---
Assessment and Plan (1) Ileus Status: Acute Assessment and plan: Nausea and vomiting are resolved Passing flatus, no BM yet Pain is better Bowel rest, making NPO Pain control If starts back vomiting will place NGT Low threshold for surgery consult if condition worsens Current Visit: Yes (2) Coronary artery disease Status: Chronic Current Visit: Yes Qualifiers: Coronary Disease-Associated Artery/Lesion type: bypass graft [place] vs. transplanted heart: [place] heart Associated angina: without angina Qualified Code(s): I25.810 - Atherosclerosis of coronary artery bypass graft(s) without angina pectoris (3) Status post coronary artery bypass graft Status: Chronic Assessment and plan: February Current Visit: No (4) Hypertension Status: Chronic Assessment and plan: Home meds Current Visit: No (5) Constipation Status: Acute Current Visit: Yes (6) Abdominal pain Status: Acute Current Visit: Yes Hospitalist: Subjective Interval history: No acute events overnight. Passing gas but still no bowel movement. He feels better today. Less abdominal pain, no nausea or vomiting. Exam - Constitutional Vitals: Period Temp Pulse Resp BP Sys/Schmitt Pulse Ox Last 24 Hr 96.3 F-97.7 F 69-96 18-20 121-142/68-85 91-98 General appearance: over weight - Head Head exam: Present: normocephalic, atraumatic - Eye Eye exam: Present: EOMI Pupils: Present: TERESA - ENT ENT exam: Present: normal exam - Neck Neck exam: Present: normal inspection - Respiratory Respiratory exam: Present: clear to auscultation bilaterally. Absent: wheezes - Cardiovascular Cardiovascular exam: Present: regular rate and rhythm - GI/Abdominal GI/Abdominal exam: Present: distended, hypoactive bowel sounds, tenderness. Absent: firm - Extremities Exam Extremities exam: Present: normal inspection - Back Exam Back exam: Present: normal inspection - Neurological Exam Neurological exam: Present: alert, oriented X3 - Psychiatric Psychiatric exam: Present: normal affect, normal mood - Skin Skin exam: Present: warm, intact Results - Labs CBC & BMP: 03/17/17 06:29 03/17/17 06:29 Quality Measures - VTE Contraindication to Pharmacological VTE Prophylaxis: Clinical assessment deems Pt at low risk, no prophalaxis needed
--- NOTE | 2017-03-17 12:42 | Cardiology Progress Note ---
Chinyere Barraza April, RN, am scribing for, and in the presence of, Sheng Goodman MD 12:41. Assessment and Plan (1) Coronary artery disease Status: Chronic Assessment and plan: He had coronary bypass surgery and clinically is doing well from this. Current Visit: Yes Qualifiers: Coronary Disease-Associated Artery/Lesion type: bypass graft [place] vs. transplanted heart: [place] heart Associated angina: without angina Qualified Code(s): I25.810 - Atherosclerosis of coronary artery bypass graft(s) without angina pectoris (2) Abdominal pain Status: Acute Assessment and plan: Patient with constipation. Based on his abdominal x-rays he may have an ileus. He is continued not to be passing much in way gas and no bowel movement. Current Visit: Yes (3) Constipation Status: Acute Assessment and plan: This is developed slightly before his bypass surgery but exacerbated afterwards. This is a progressive course since then to now. Still has not had a bowel movement he has not passed much in way gas today. Current Visit: Yes (4) Hypertension Status: Chronic Assessment and plan: At present his blood pressures are stable. Current Visit: No (5) Dyslipidemia Status: Chronic Assessment and plan: He needs to continue his atorvastatin. Current Visit: Yes (6) Status post coronary artery bypass graft Status: Chronic Assessment and plan: Doing well post bypass surgery and his wounds look good. Current Visit: No Cardiology - PN: Subj Interval history: Occ Med Physician: Dr. Goodman SUMMARY: Mr. Matt is a 57 year old male who is followed by Dr. Goodman with a history of CAD, hypertension, and dyslipidemia. He underwent coronary bypass grafting with saphenous vein graft to the obtuse marginal and right coronary arteries and internal mammary graft to the anterior descending coronary artery on March 06, [address] Tuttle. He has also had a hernia repair. Family history is positive for father with CAD and brother with diabetes and hypertension. He no longer smokes, stating he quit about 12 years ago. He presented to [facility] March 16 because he has not had a bowel movement since his bypass surgery on March 06. He was seen at [facility] emergency department and had multiple enemas and suppositories with no results. Because of abdominal fullness, he has had a decreased appetite. 2-3 days ago he began to have nausea and vomiting as well as abdominal pain. He also reports he has passed no flatus in the last several days. Abdominal x-ray suggested a prominent ileus. He denies any chest pain, shortness of breath, or palpitations. His sternal incision is healing nicely. His left leg donor site incision is without evidence of infection, but the states that it has been weeping and they have been putting antibiotic ointment on it. He denies having any fever, chills, or discomfort to site. MARCH 17, 2017: Mr. Matt says he feels better today. He states he has had some slight results from the medication, but that is mostly water and flatus. He was nauseated earlier this morning but that has subsided. His abdominal pain has improved. KUB done yesterday suggested total bowel ileus or distal colonic obstruction. He denies any chest pain, shortness of breath, or palpitations. Vital signs remained stable. As noted, patient personally interviewed and examined by me and chart reviewed. This patient's issues may present are GI. Cardiac [place] he is doing well. He is not having any cardiac symptomatology. His postoperative wounds are doing well. Vital signs overall he remains stable. Heart rates are stable. His evaluation for his ileus continues. Again I do not think this is related to cardiac. Exam (Progress Note) - Constitutional Vitals: Period Temp Pulse Resp BP Sys/Schmitt Pulse Ox Last 24 Hr 96.3 F-97.7 F 69-96 18-20 117-142/68-85 91-98 General appearance: no acute distress, over weight - Head Head exam: Absent: abrasion, hematoma - Eye Eye exam: Absent: periorbital swelling, laceration to eyelids - Respiratory Respiratory exam: Present: clear to auscultation bilaterally. Absent: accessory muscle use, chest wall tenderness - Cardiovascular Cardiovascular exam: Present: regular rate and rhythm - GI/Abdominal GI/Abdominal exam: Present: distended, firm, hypoactive bowel sounds - Extremities Exam Extremities exam: Absent: edema - Neurological Exam Neurological exam: Present: alert, oriented X3 - Psychiatric Psychiatric exam: Present: normal affect, normal mood - Skin Skin exam: Present: warm, dry, other (Sternal and left leg incisions healing nicely) Result/EKG - Labs CBC & BMP: 03/17/17 06:29 07/11/17 06:29 Lab Results: I have reviewed the past 24 hour labs Labs: Laboratory Results - last 24 hr 03/16/17 03/16/17 03/16/17 08:18 08:51 08:51 WBC 11.7 RBC 3.41 L Hgb 10.6 L Hct 30.3 L MCV 88.9 MCH 31 MCHC 35.0 RDW 11.8 Plt Count 550 H MPV 9.6 Neut % (Auto) 72.0 Lymph % (Auto) 15.1 L [place] % (Auto) 11.1 Eos % (Auto) 0.6 Baso % (Auto) 0.6 Neut # (Auto) 8.4 H Lymph # (Auto) 1.8 [place] # (Auto) 1.3 H Eos # (Auto) 0.1 Baso # (Auto) 0.1 Immature Gran % 0.6 Nucleated RBC % 0.0 Immature Gran # 0.07 Nucleated RBCs # 0.00 Sodium 135 L Potassium 4.2 Chloride 103 Carbon Dioxide 23 Anion Gap 13.2 BUN 15 Creatinine 0.60 L GFR Calculation 146 BUN/Creatinine Ratio 25.00 H Glucose 107 H Calculated Osmolality 270.1 L Calcium 9.1 Magnesium Total Bilirubin 0.50 AST 19 ALT 42 Alkaline Phosphatase 81 Total Protein 6.7 Albumin 3.0 L Globulin 3.7 H Albumin/Globulin Ratio 0.8 L Free T4 TSH 3rd Generation Urine Color Yellow Urine Appearance Clear Urine pH 6.0 Ur Specific [place] 1.023 Urine Protein Negative Urine Glucose (UA) Negative Urine Ketones 20 Urine Blood Negative Urine Nitrate Negative Urine Bilirubin Negative Urine Urobilinogen 2.0 H Urine Leukocytes Negative Urine RBC 1 Urine WBC 1 Ur Squamous Epith Cells Occasional Urine Mucus Many Ur Culture Indicated? Not indicated 03/16/17 03/16/17 03/17/17 08:51 08:51 06:29 WBC 14.0 H RBC 3.63 L Hgb 11.1 L Hct 32.6 L MCV 89.8 MCH 31 MCHC 34.0 RDW 11.8 Plt Count 609 H MPV 9.3 L Neut % (Auto) 74.1 H Lymph % (Auto) 13.7 L [place] % (Auto) 10.9 Eos % (Auto) 0.3 Baso % (Auto) 0.4 Neut # (Auto) 10.4 H Lymph # (Auto) 1.9 [place] # (Auto) 1.5 H Eos # (Auto) 0.0 Baso # (Auto) 0.1 Immature Gran % 0.6 Nucleated RBC % 0.0 Immature Gran # 0.08 Nucleated RBCs # 0.00 Sodium Potassium Chloride Carbon Dioxide Anion Gap BUN Creatinine GFR Calculation BUN/Creatinine Ratio Glucose Calculated Osmolality Calcium Magnesium Total Bilirubin AST ALT Alkaline Phosphatase Total Protein Albumin Globulin Albumin/Globulin Ratio Free T4 1.49 H TSH 3rd Generation 1.540 Urine Color Urine Appearance Urine pH Ur Specific [place] Urine Protein Urine Glucose (UA) Urine Ketones Urine Blood Urine Nitrate Urine Bilirubin Urine Urobilinogen Urine Leukocytes Urine RBC Urine WBC Ur Squamous Epith Cells Urine Mucus Ur Culture Indicated? 03/17/17 06:29 WBC RBC Hgb Hct MCV MCH MCHC RDW Plt Count MPV Neut % (Auto) Lymph % (Auto) [place] % (Auto) Eos % (Auto) Baso % (Auto) Neut # (Auto) Lymph # (Auto) [place] # (Auto) Eos # (Auto) Baso # (Auto) Immature Gran % Nucleated RBC % Immature Gran # Nucleated RBCs # Sodium 140 Potassium 4.6 Chloride 104 Carbon Dioxide 27 Anion Gap 13.6 BUN 15 Creatinine 0.70 GFR Calculation 138 BUN/Creatinine Ratio 21.00 H Glucose 120 H Calculated Osmolality 280.4 Calcium 9.3 Magnesium 2.7 H Total Bilirubin 0.50 AST 16 ALT 37 Alkaline Phosphatase 83 Total Protein 6.8 Albumin 2.9 L Globulin 3.9 H Albumin/Globulin Ratio 0.7 L Free T4 TSH 3rd Generation Urine Color Urine Appearance Urine pH Ur Specific [place] Urine Protein Urine Glucose (UA) Urine Ketones Urine Blood Urine Nitrate Urine Bilirubin Urine Urobilinogen Urine Leukocytes Urine RBC Urine WBC Ur Squamous Epith Cells Urine Mucus Ur Culture Indicated? - Diagnostic Findings Procedure: KUB x-ray: report reviewed by me Quality Measures - VTE Contraindication to Pharmacological VTE Prophylaxis: Clinical assessment deems Pt at low risk, no prophalaxis needed I, Sheng Goodman MD, personally performed the services described in this documentation, ascribed by Lesa Whitlock RN in my presence, and it is both accurate and complete [id number] .
--- NOTE | 2017-03-17 15:25 | XRay Report ---
Exam: XR chest 1V portable Date: 03/17/2017 2:24 PM Indication: Nasogastric tube placement Comparison: 03/11/2017. Technical: AP portable Findings: Cardiomegaly is present. Previous sternotomy. Nasogastric tube has been placed with the distal tip in the proximal fundus of the stomach. Low volume effusions and atelectatic changes are present. Mediastinum is intact. ASVD is present. No pneumothorax. Removal of the right IJ catheter without pneumothorax. Impression: 1. Interval placement nasogastric tube in the stomach 2. Low volume effusions and bibasilar atelectasis 3. Cardiomegaly with previous sternotomy 4. Interval removal of the right IJ catheter. 5. Abdominal ileus pattern at minimum noted. PROCEDURE INTERPRETED AT [facility] DEPARTMENT OF RADIOLOGY Final Report Signed by: Dr. Ancelmo Ortiz
--- NOTE | 2017-03-17 19:06 | XRay Report ---
Chest for nasogastric tube placement. The distal tip of the nasogastric tube projects over the body of the stomach, with the side-port just beyond the GE junction. PROCEDURE INTERPRETED AT [facility] DEPARTMENT OF RADIOLOGY Final Report Signed by: Dr. Angelika Lamar
--- NOTE | 2017-03-17 20:14 | General Surgery Consult Note ---
Assessment and Plan (1) Ileus Status: Acute Assessment and plan: This patient has an NG tube and he is being managed appropriately already. This appears to be related to an ileus which could just be from his postop state and some pain medication related. I do not see a hernia that could be resulting in a large bowel obstruction but I think it would be prudent to get a CT scan with p.o. and IV contrast to further evaluate for any intra-abdominal pathology. If this ends up looking like a colonic pseudoobstruction then we will get GI to see him and assist with management. No acute surgical intervention is planned. Current Visit: Yes History of Present Illness Chief complaint: Abdominal pain with distention History of present illness: Mr. Matt is a 57 year old male who had a CABG last Thursday that was uneventful and is readmitted to the hospital with abdominal distention and pain and lack of bowel movement or flatus. The patient has never had problems like this before. His electrolytes are acceptable. He had a NG tube placed for what looked like an ileus of large and small bowel. Home Medications Medication Instructions Recorded Confirmed Type Aspirin EC Tab 81 mg PO DAILY 03/04/17 03/16/17 History Atorvastatin [Lipitor] 40 mg PO BEDTIME #30 tablet 03/11/17 03/16/17 Rx Carvedilol [Coreg] 6.25 mg PO BID #60 tablet 03/11/17 03/16/17 Rx Docusate Sodium Cap [Colace Cap] 100 mg PO DAILY #30 capsule 03/11/17 03/16/17 Rx Bisacodyl Tab [Dulcolax Tab] 5 mg PO QPM 03/16/17 03/16/17 History Cetirizine Tab [ZyrTEC Tab] 10 mg PO DAILY 03/16/17 03/16/17 History Levofloxacin Tab [Levaquin Tab] 500 mg PO DAILY 03/16/17 03/16/17 History Polyethylene Glycol Powder 17 gm PO BID 03/16/17 03/16/17 History [Miralax] Allergies Allergy/AdvReac Type Severity Reaction Status Date / Time No Known Allergies Allergy Verified 03/04/17 07:05 Medical,Surgical,& Family Hx - Medical History Cardio: History of: CAD, Hypertension Neurology: No history of: Seizures Endocrine: History of: Dyslipidemia - Surgical History Cardiac Surgeries: Sugical HX of: Cardiac Catheterization, Cardiac Surgery ( CABG March 06, 2017) Abdominal Surgeries: Surgical HX of: Hernia Repair - Family History Family History: Reports;: Family Diabetes (Brother), Family Heart Disease ( Father), Family Hypertension (Brother) - Social History Smoking Status: Former smoker Frequency of Alcohol Use: Frequently Type of Drug Use: None - Constitutional Constitutional: Present: as per HPI - EENT Nose, mouth and throat: Present: as per HPI - Cardiovascular Cardiovascular: Present: as per HPI - Respiratory Respiratory: Present: as per HPI - Gastrointestinal Gastrointestinal: Present: as per HPI - Genitourinary Genitourinary: Present: as per HPI - Musculoskeletal Musculoskeletal: Present: as per HPI - Neurological Neurological: Present: as per HPI - Endocrine Endocrine: Present: as per HPI Hematologic/Lymphatic: Present: as per HPI Exam - Constitutional Vitals: Period Temp Pulse Resp BP Sys/Schmitt Pulse Ox Last 24 Hr 96.0 F-97.8 F 72-81 18-20 121-159/68-97 91-98 General appearance: no acute distress, over weight - Head Head exam: Present: normal inspection, normocephalic - Eye Eye exam: Present: EOMI Pupils: Present: TERESA - ENT ENT exam: Present: normal exam Mouth exam: Present: normal external inspection, normal voice - Neck Neck exam: Present: normal inspection, trachea midline - Respiratory Respiratory exam: Present: clear to auscultation bilaterally. Absent: accessory muscle use, chest wall tenderness - Cardiovascular Cardiovascular exam: Present: RRR. Absent: systolic murmur, tachycardia - GI/Abdominal GI/Abdominal exam: Present: distended, hypoactive bowel sounds, soft. Absent: tenderness, rebound - Extremities Exam Extremities exam: Present: normal inspection, normal capillary refill - Back Exam Back exam: Present: normal inspection - Neurological Exam Neurological exam: Present: alert, oriented X3 Speech: Present: normal - Skin Skin exam: Present: normal color, warm Quality Measures - VTE Contraindication to Pharmacological VTE Prophylaxis: Clinical assessment deems Pt at low risk, no prophalaxis needed Results - Labs CBC & BMP: 03/17/17 06:29 03/17/17 06:29 - Diagnostic Findings Procedure: KUB x-ray: image reviewed by me, report reviewed by me (Ileus)
[2017-03-17] MEDS: ONDANSETRON 4 MG/2 ML VIAL IV PRN (20:28)
[2017-03-17] MEDS: BISACODYL 5 MG TABLET PO SCH (21:22)
[2017-03-17] MEDS: ATORVASTATIN 40 MG TABLET PO SCH (21:23)
[2017-03-17] MEDS: HYDROmorphone 2 MG/1 ML VIAL IV PRN (22:41)
[2017-03-18] MEDS: HYDROmorphone 2 MG/1 ML VIAL IV PRN ×2 (04:49→17:50)
[2017-03-18] MEDS: METOCLOPRAMIDE 10 MG/2 ML VIAL IV SCH ×3 (06:32→18:50)
[2017-03-18 06:33] LABS: Basophils # 0.1 10*3/uL (0.0-0.2); Basophils % 0.7 % (0.0-0.8); Eosinophils # 0.2 10*3/uL (0.0-0.87); Eosinophils % 1.1 % (0.00-10.9); Hematocrit 34.1 VOL% (42.0-52.0); Hemoglobin 11.5 GM/DL (14.0-18.0); Immature Granulocytes % 0.9 %; Immature Granulocytes Absolute 0.14 #; Lymphocytes # 1.3 10*3/uL (1.4-4.0); Lymphocytes % 8.8 % (21.2-54.2); Mean Corpuscular HGB Conc 33.7 GM/DL (32-36); Mean Corpuscular Hemoglobin 30 PG (27-34); Mean Corpuscular Volume 89.5 FL (87-102); Mean Platelet Volume 9.6 FL (9.6-12.0); Monocytes # 1.6 10*3/uL (0.11-0.8); Neutrophils # 11.5 10*3/uL (1.4-7.4); Neutrophils % 77.5 % (38.7-73.9); Platelet Count 692 T/CUMM (130-400); Red Blood Count 3.81 MC/CUMM (3.8-5.5); Red Cell Distribution Width 11.9 % (9.3-17.3); White Blood Count 14.9 T/CUMM (4-12)
--- NOTE | 2017-03-18 06:37 | CT Report ---
CT abdomen pelvis w con Indication: Constipated, colonic ileus Comparison: Abdomen radiographs 03/17/2017. Technique: CT of the abdomen and pelvis was performed following administration of intravenous contrast. Coronal and sagittal reformatted images were additionally created and submitted for review. The total DLP is 2127 mGy*cm. Dose reduction: This CT exam was performed using one or more of the following dose reduction techniques: Automated exposure control, automated adjustment of the mA and/or KV according to patient size, or use of iterative reconstruction technique. Findings: Posterior basilar atelectatic changes are noted bilaterally. There is a moderate left and small right pleural effusion. There is no pericardial effusion. Median sternotomy wiring is partially imaged. An esophagogastric tube is noted within the proximal stomach.. ABDOMEN: Liver/Gallbladder: No abnormal enhancing hepatic lesions. Gallbladder is nondilated with no stones visualized. Portal vein is patent. Spleen: No acute findings. Pancreas: No acute findings. Adrenals: Within normal limits in appearance. Kidneys: Both kidneys enhance symmetrically. There is excretion of contrast from both kidneys on delayed images. Bowel/mesentery: Diffuse dilatation of small bowel and colon throughout the abdomen/pelvis is noted. There is no focal area of caliber change to suggest cause for obstruction. There is no free air within the abdomen to suggest perforation. The cecum is markedly dilated measuring up to 12 cm. Minimal free fluid is noted throughout the abdomen there is no mesenteric adenopathy. Retroperitoneum: No evidence of aortic aneurysm or significant retroperitoneal adenopathy. PELVIS: The pelvis is remarkable for minimal free fluid. Bladder is mildly dilated. The prostate is upper limits of normal in size. There is no adenopathy. Again, there is marked dilatation of the entire sigmoid colon/rectum with no focal lesions identified as the cause of obstruction. BONES: No acute or suspicious osseous abnormalities are identified. IMPRESSION: Diffuse distention of the small bowel and entire colon suggesting colonic ileus and or partial obstruction. There is no focal lesion or other cause for continued bowel dilatation identified. There is no evidence of perforation. Minimal ascites noted within the abdomen/pelvis. Small right and moderate left pleural effusions and posterior basilar atelectatic changes. Preliminary report by virtual radiologic. 03/18/2017 6:30 AM PROCEDURE INTERPRETED AT [facility] DEPARTMENT OF RADIOLOGY Final Report Signed by: Jesse Hayden
[2017-03-18 07:02] LABS: Bilirubin,Total 0.4 MG/DL (0.2-1.0); Calcium 9.1 MG/DL (8.5-10.1); Magnesium 2.5 MG/DL (1.8-2.4); Phosphorous 4.6 MG/DL (2.5-4.9); Potassium 4.1 MMOL/L (3.5-5.1); Total Protein 6.7 G/DL (6.4-8.3)
--- NOTE | 2017-03-18 07:34 | General Surgery Progress Note ---
Assessment and Plan (1) Ileus Status: Acute Assessment and plan: There is not appear to be any obstruction on the CT scan. I have placed the patient on Reglan and have discussed basic management steps to treat this problem including ambulation and limiting narcotic pain medication. His electrolytes appear normal. I have placed a consult to gastroenterology as well. Consideration may be given to endoscopy to ensure that there is no obstructing component to this colonic process and also to decompress the colon. This is more of a medical problem that they can assist with and I do not anticipate any surgery will be required. Current Visit: Yes Subjective Patient reports: Present: no new complaints, feels better, afebrile. Absent: still having pain Narrative: The patient feels much better this morning. CT scan showed no focal obstructive lesion but there was evidence of colonic ileus or pseudoobstruction. White cell count is 14,000 and electrolytes are normal today. Patient has not gotten up and walked much. He is not using any narcotics. Exam - Constitutional Vitals: Period Temp Pulse Resp BP Sys/Schmitt Pulse Ox Last 24 Hr 96.0 F-98.0 F 72-87 18-20 119-162/68-97 92-98 General appearance: no acute distress, over weight - Head Head exam: Present: normal inspection, normocephalic - Eye Eye exam: Present: EOMI Pupils: Present: TERESA - ENT ENT exam: Present: normal exam - Neck Neck exam: Present: normal inspection, trachea midline - Respiratory Respiratory exam: Present: clear to auscultation bilaterally. Absent: accessory muscle use, chest wall tenderness - Cardiovascular Cardiovascular exam: Present: RRR. Absent: systolic murmur, tachycardia - GI/Abdominal GI/Abdominal exam: Present: distended, hypoactive bowel sounds, soft. Absent: tenderness, rebound - Extremities Exam Extremities exam: Present: normal inspection, normal capillary refill - Back Exam Back exam: Present: normal inspection - Neurological Exam Neurological exam: Present: alert, oriented X3 Speech: Present: normal - Skin Skin exam: Present: normal color, warm Results - Labs CBC & BMP: 03/18/17 05:07 03/18/17 05:07 - Diagnostic Findings Procedure: CT Abdomen and Pelvis: image reviewed by me, report reviewed by me Quality Measures - VTE Contraindication to Pharmacological VTE Prophylaxis: Clinical assessment deems Pt at low risk, no prophalaxis needed
--- NOTE | 2017-03-18 09:30 | Cardiology Progress Note ---
Assessment and Plan (1) Coronary artery disease Status: Chronic Assessment and plan: He had coronary bypass surgery and clinically is doing well from this. He has no cardiac complaints. Current Visit: Yes Qualifiers: Coronary Disease-Associated Artery/Lesion type: bypass graft [place] vs. transplanted heart: [place] heart Associated angina: without angina Qualified Code(s): I25.810 - Atherosclerosis of coronary artery bypass graft(s) without angina pectoris (2) Abdominal pain Status: Acute Assessment and plan: Continued obstipation not passing gas or bowel movements. GI medicine is being consulted. Current Visit: Yes (3) Constipation Status: Acute Assessment and plan: No flatus or bowel movements. Current Visit: Yes (4) Hypertension Status: Chronic Assessment and plan: At present his blood pressures are stable. No changes. Current Visit: No (5) Dyslipidemia Status: Chronic Assessment and plan: He needs to continue his atorvastatin. Current Visit: Yes (6) Status post coronary artery bypass graft Status: Chronic Assessment and plan: Doing well post bypass surgery and his wounds look good. Current Visit: No Cardiology - PN: Subj Interval history: Mr. Matt still has not been passing any gas and no bowel movements. Evaluation and appears to be more that of an ileus. Dr. Hemphill was seen the patient does not feel there is a surgical issue and GI medicine has been consulted. From cardiac standpoint remains stable. I have reviewed the patient 's chart and other progress notes and reports. His vital signs remained stable. He is afebrile. Blood pressure heart rate are stable. Lab work has been reviewed. Patient is doing well from cardiac standpoint and has not had any cardiac symptoms. He is stable post CABG. We will sign off at this time but let us know if we can be further service while he is admitted to the hospital. He should keep his follow-up with us as prescribed. We will set this up. Exam (Progress Note) - Constitutional Vitals: Period Temp Pulse Resp BP Sys/Schmitt Pulse Ox Last 24 Hr 96.0 F-98.0 F 72-87 18-20 119-162/71-97 92-96 Exam: General appearance: Over weight, no acute distress HEENT exam: normal inspection, atraumatic Neck exam: normal inspection no JVD. No carotid bruit. Trachea is in midline Respiratory/lungs exam: clear to auscultation bilaterally good air movement. Cardiovascular exam: regular rate and rhythm, no murmur or gallop or rub. No precordial lift. Chest wall exam: nontender GI/Abdominal exam: Abdomen is distended with no bowel sounds. Protuberant. Extremeties/musculoskeletal: normal inspection without edema or cyanosis. Graft donor site left leg is healing nicely. Neurological exam: alert, oriented X3, no focal deficits Psychiatric exam: normal affect, normal mood. Cognitive function is grossly normal. Skin exam: normal color, warm Result/EKG - Labs CBC & BMP: 03/18/17 05:07 03/18/17 05:07 Lab Results: I have reviewed the past 24 hour labs Labs: Laboratory Results - last 24 hr 03/18/17 03/18/17 05:07 05:07 WBC 14.9 H RBC 3.81 Hgb 11.5 L Hct 34.1 L MCV 89.5 MCH 30 MCHC 33.7 RDW 11.9 Plt Count 692 H MPV 9.6 Neut % (Auto) 77.5 H Lymph % (Auto) 8.8 L [place] % (Auto) 11.0 Eos % (Auto) 1.1 Baso % (Auto) 0.7 Neut # (Auto) 11.5 H Lymph # (Auto) 1.3 L [place] # (Auto) 1.6 H Eos # (Auto) 0.2 Baso # (Auto) 0.1 Immature Gran % 0.9 Nucleated RBC % 0.0 Immature Gran # 0.14 Nucleated RBCs # 0.00 Sodium 136 Potassium 4.1 Chloride 102 Carbon Dioxide 26 Anion Gap 12.1 BUN 18 Creatinine 0.70 GFR Calculation 138 BUN/Creatinine Ratio 25.00 H Glucose 108 H Calculated Osmolality 274.0 Calcium 9.1 Phosphorus 4.6 Magnesium 2.5 H Total Bilirubin 0.40 AST 15 ALT 30 Alkaline Phosphatase 85 Total Protein 6.7 Albumin 3.0 L Globulin 3.7 H Albumin/Globulin Ratio 0.8 L Quality Measures - VTE Contraindication to Pharmacological VTE Prophylaxis: Clinical assessment deems Pt at low risk, no prophalaxis needed Specialty Discharge - Follow Up or Referrals Follow up with: Sheng Goodman MD [Physician] - 2 Weeks (2 weeks after discharge with ECG.)
--- NOTE | 2017-03-18 09:54 | Hospitalist Progress Note ---
<Celia Connellyda - Last Filed: 03/18/17 09:52> Assessment and Plan (1) Constipation Status: Acute Assessment and plan: CT scan showed diffuse gaseous distention of small bowel loops and colon suggesting a prominent ileus. The patient was given mag citrate in the ED however has not experienced any results. We will start lactulose every [address] abdomen and pelvis for further evaluation. 03/18-NG tube placed on yesterday. Patient verbalizes "some relief". Abdomen remains grossly distended. Evaluated by surgery; the patient deemed not appropriate for surgical intervention at this time. We will consult GI to evaluate. Current Visit: Yes (2) Hypertension Status: Chronic Assessment and plan: Blood pressures are stable at the time of ED presentation. Home medications have been reconciled. Cardiology has been consulted to assist during the clinical encounter. Current Visit: No (3) Coronary artery disease Status: Chronic Assessment and plan: Patient recently underwent coronary artery bypass graft on March 06, 2017. The patient is not experiencing any significant cardiac abnormalities at this time; however we will consult cardiology to assist during the clinical encounter. Current Visit: Yes Qualifiers: Coronary Disease-Associated Artery/Lesion type: bypass graft [place] vs. transplanted heart: [place] heart Associated angina: without angina Qualified Code(s): I25.810 - Atherosclerosis of coronary artery bypass graft(s) without angina pectoris (4) Status post coronary artery bypass graft Status: Chronic Assessment and plan: Patient recently underwent coronary artery bypass graft on March 06, 2017. We will consult cardiology to assist during the clinical encounter. Current Visit: No Hospitalist: Subjective Interval history: Patient seen and examined; abdomen remains grossly distended. NG tube placed on yesterday. Evaluated by surgery no surgical intervention deemed necessary at this time. We will consult GI to evaluate Exam - Constitutional Vitals: Period Temp Pulse Resp BP Sys/Schmitt Pulse Ox Last 24 Hr 96.0 F-98.0 F 72-87 18-20 119-162/71-97 92-96 General appearance: normal weight, mild distress - Head Head exam: Present: normal inspection, normocephalic, atraumatic - Eye Eye exam: Present: EOMI, conjunctival injection Pupils: Present: TERESA, normal accommodation - ENT ENT exam: Present: normal exam, normal external ear exam, normal oropharynx - Neck Neck exam: Present: normal inspection. Absent: lymphadenopathy, meningismus, tenderness, thyromegaly - Respiratory Respiratory exam: Present: clear to auscultation bilaterally. Absent: rales, rhonchi, stridor, wheezes - Cardiovascular Cardiovascular exam: Present: regular rate and rhythm. Absent: carotid bruit, diastolic murmur, gallop, JVD, rubs, systolic murmur - GI/Abdominal GI/Abdominal exam: Present: distended, firm, hypoactive bowel sounds (Quiet; very faint), other (NG tube in place) - Extremities Exam Extremities exam: Present: normal inspection, normal capillary refill, full ROM. Absent: edema - Back Exam Back exam: Present: normal inspection - Neurological Exam Neurological exam: Present: alert, oriented X3 - Psychiatric Psychiatric exam: Present: normal affect, normal mood - Skin Skin exam: Present: normal color, warm, dry Results - Labs CBC & BMP: 03/18/17 05:07 03/18/17 05:07 Lab Results: I have reviewed the past 24 hour labs Quality Measures - VTE Contraindication to Pharmacological VTE Prophylaxis: Clinical assessment deems Pt at low risk, no prophalaxis needed Specialty Discharge - Follow Up or Referrals Follow up with: Sheng Goodman MD [Physician] - 2 Weeks (2 weeks after discharge with ECG.) <Nighat Andrea - Last Filed: 03/18/17 17:35> Assessment and Plan (1) Ileus Status: Acute Current Visit: Yes (2) Coronary artery disease Status: Chronic Current Visit: Yes Qualifiers: Coronary Disease-Associated Artery/Lesion type: bypass graft [place] vs. transplanted heart: [place] heart Associated angina: without angina Qualified Code(s): I25.810 - Atherosclerosis of coronary artery bypass graft(s) without angina pectoris (3) Status post coronary artery bypass graft Status: Chronic Current Visit: No (4) Hypertension Status: Chronic Current Visit: No (5) Constipation Status: Acute Current Visit: Yes (6) Abdominal pain Status: Acute Current Visit: Yes Hospitalist: Subjective Interval history: Patient seen and examined independently of TREVER Connelly, agree with assessment and plan as documented. Increased abdominal pain yesterday evening. Evaluated by surgery. Reports feeling better when NGT was placed but now with discomfort. Denies bowel movement and flatus. GI consulted. Exam - Constitutional Vitals: Period Temp Pulse Resp BP Sys/Schmitt Pulse Ox Last 24 Hr 96.2 F-98.0 F 74-87 18-20 119-162/71-96 92-96 Results - Labs CBC & BMP: 03/18/17 05:07 03/18/17 05:07
--- NOTE | 2017-03-18 10:51 | XRay Report ---
Exam: XR KUB Date: 03/18/2017 4:00 AM Indication: Abdominal ileus Comparison: 03/17/2017 Technical: Supine abdomen Findings: Contrast is present in the bladder from recent CT imaging. Dilated large and small bowel loops are present. Nasogastric tube is present in the stomach. The liver spleen and renal shadows are mostly obscured. Previous sternotomy noted. Degenerative changes present lumbar thoracolumbar spine. Impression: 1. Interval placement of a nasogastric tube 2. Persistent findings of abdominal ileus or partial bowel obstruction 3. Degenerative spondylosis change thoracic spine lumbar spine 4. No obvious pneumoperitoneum on the submitted image. PROCEDURE INTERPRETED AT [facility] DEPARTMENT OF RADIOLOGY Final Report Signed by: Dr. Ancelmo Ortiz
[2017-03-18] MEDS: SODIUM CHLORIDE 0.9% 1,000 ML IV SCH (12:58)
[2017-03-18] MEDS: CETIRIZINE 10 MG TABLET PO SCH (13:02)
[2017-03-18] MEDS: POLYETHYLENE GLYCOL POWDER 17 GM PACK PO SCH ×2 (13:02→22:59)
[2017-03-18] MEDS: ASPIRIN EC 81 MG TABLET PO SCH (13:03)
[2017-03-18] MEDS: DOCUSATE SODIUM 100 MG CAPSULE PO SCH ×2 (13:03→22:58)
[2017-03-18] MEDS: CARVEDILOL 6.25 MG TABLET PO SCH ×2 (13:04→18:16)
--- NOTE | 2017-03-18 21:14 | Gastrointestinal Consult Note ---
Assessment and Plan (1) Ileus, unspecified Status: Acute Assessment and plan: The patient has an overall GI tract hypomotility noted here. I am not completely convinced there is not some low colonic obstruction that is producing the above changes however the patient was also kept on narcotics did receive a fair amount of lactulose which may have added to the gaseous distention of the colon and the small bowel. We will first start by giving this patient enemas every 4 hours for for a period 24 hours to see if this will cause the colon to "open up" appropriately. If this fails, we may need to perform an unprepped flex sig in order to establish that there is no colon cancer present producing a low obstruction. If this proves to be colonic pseudoobstruction we may consider use of neostigmine as a final purgative. This will need to be done on telemetry in order to watch for bradycardia. Agree with the NG tube for the current ileus. We will continue to watch the patient's NG tube output. Current Visit: Yes (2) Constipation by delayed colonic transit Status: Acute Assessment and plan: As noted above. Will use the MiraLAX 3 times daily in addition to the soapsuds enemas, and discontinuation of narcotics use entirely. If we thought this was narcotic induced constipation a good treatment might be a Relistor which can be given subcutaneously, but he does not seem like he is taking enough narcotics to warrant this. Current Visit: Yes (3) Anemia Status: Acute Assessment and plan: Continue to observe the patient's hematocrit, we will also monitor the patient' s white blood cell count to see if this continues to elevate. Current Visit: No History of Present Illness Chief complaint: Ileus and colonic dilation--no passage of bowel movements 12 days History of present illness: Mr. Matt is a 57 year old male who had a history of three-vessel CABG performed by Dr. Tuttle on 03/06/17, he was released from the hospital unfortunately without having any stools and presented again to [facility] on 03/14/17 with abdominal distention associated with his ongoing constipation issue.. MiraLAX and multiple enemas were attempted but without much success. The patient was sent over to our institution on 03/16/17 but despite use of lactulose and Reglan he continues to experience abdominal distention. White blood cell count has been getting steadily higher going from 11.7-->14.9 K now. Patient's electrolytes appear to be balanced, including magnesium which was 2.5 today. Liver function tests within normal limits. Kidney function is normal as well at [address] scan of the abdomen shows a distention of the small bowel and the entirety of the colon suggesting an ileus versus low colonic obstruction vs. colonic pseudoobstruction/April's. There is no be any focal lesions or pericolonic inflammation. There was minimal ascites noted in the abdomen pelvis interestingly. The patient feels the distention from his abdomen but there is not excessive pain in any one quadrant. Reviewed his medications shows Dulcolax, lactulose, Colace, Reglan, MiraLAX and given the magnesium level of this patient probably know, MOM previously at [facility]. Unfortunately the patient is being kept on narcotics here with a fair amount of hydromorphone which we now need to discontinue. Patient will need a few enemas to stimulate him and if these fail to "prime the pump" we will likely need to perform colonoscopy looking for an obstructing low lesion missed by CT scan. Home Medications Medication Instructions Recorded Confirmed Type Aspirin EC Tab 81 mg PO DAILY 03/04/17 03/16/17 History Atorvastatin [Lipitor] 40 mg PO BEDTIME #30 tablet 03/11/17 03/16/17 Rx Carvedilol [Coreg] 6.25 mg PO BID #60 tablet 03/11/17 03/16/17 Rx Docusate Sodium Cap [Colace Cap] 100 mg PO DAILY #30 capsule 03/11/17 03/16/17 Rx Bisacodyl Tab [Dulcolax Tab] 5 mg PO QPM 03/16/17 03/16/17 History Cetirizine Tab [ZyrTEC Tab] 10 mg PO DAILY 03/16/17 03/16/17 History Levofloxacin Tab [Levaquin Tab] 500 mg PO DAILY 03/16/17 03/16/17 History Polyethylene Glycol Powder 17 gm PO BID 03/16/17 03/16/17 History [Miralax] Allergies Allergy/AdvReac Type Severity Reaction Status Date / Time No Known Allergies Allergy Verified 03/04/17 07:05 Medical,Surgical,& Family Hx - Medical History Cardio: History of: CAD, Hypertension Neurology: No history of: Seizures Endocrine: History of: Dyslipidemia - Surgical History Cardiac Surgeries: Sugical HX of: Cardiac Catheterization, Cardiac Surgery ( CABG March 06, 2017) Abdominal Surgeries: Surgical HX of: Hernia Repair - Family History Family History: Reports;: Family Diabetes (Brother), Family Heart Disease ( Father), Family Hypertension (Brother) - Social History Smoking Status: Former smoker Frequency of Alcohol Use: Frequently Type of Drug Use: None Review of systems: Constitutional: Denies fever, chills, but positive for previous nausea, and vomiting Eyes: Denies dry eyes, and scleral icterus HENT: Denies headaches Cardiovascular: Denies acute chest pain and claudication Respiratory: Denies shortness of breath, wheezing, and difficulty breathing, denies cough Gastrointestinal: As noted in the HPI Genitourinary: Denies dysuria and hematuria Neurologic: Denies vision loss, and loss of sensation Musculoskeletal: Admits to some joint swelling, joint stiffness, and muscular weakness Psychiatric: Denies depression and chinmay symptoms Heme-Lymph: Denies easy bruising, lymph node enlargement or tenderness, night sweats, excessive bleeding Allergies-immunologic: Denies pruritus and rhinorrhea Exam - Constitutional Vitals: Period Temp Pulse Resp BP Sys/Schmitt Pulse Ox Last 24 Hr 96.2 F-97.9 F 75-87 18-20 119-150/71-84 92-94 General appearance: mild distress Exam: Constitutional: Well-developed, well-nourished, alert, and in mild distress with abdominal distention Head and face: Head: Normocephalic atraumatic Eyes: Conjunctiva without injection, no gross scleral icterus, pupils equal and round bilaterally Ears: Intact to conversation in both ears Nose: External appearance is normal, nare patent but the other narrow has NG tube in place. Mouth: Oral mucous membranes moist without erythema dentition noted to be without erosion Neck: Normal appearance, no masses or tenderness, trachea midline Thyroid: Gland midline and appropriate size for age Respiratory: Normal respiratory effort, clear to auscultation without wheezes, rhonchi or rales Cardiovascular: Regular rate and rhythm, normal S1, S2, the exam is without rubs, murmurs or gallops, recent CABG scar on chest midline Gastrointestinal: There is a great deal of abdominal distention and tympany noted as well as some tenderness to palpation diffusely, hypoactive bowel sounds are noted, tone normal without rigidity or guarding, no masses present, no hepatomegaly, no spleen tip felt. Shows very high tone and no stool within the reach of my finger in the rectal vault. Stool is brown and guaiac negative. Lymphatic: Neck without adenopathy, axilla without lymphadenopathy present Musculoskeletal: Right and left lower extremities without evidence of edema Skin and subcutaneous tissue: No rashes or ulcerations noted, normal skin turgor, digits and nails without clubbing/cyanosis/deformities. Neurologic: The patient is grossly oriented to person place and time, cranial nerves show tongue movements are normal with normal tongue extrusion midline, light touch sensation is intact. Psychiatric: No hallucinations or delusions are present, does not appear depressed Results - Labs CBC & BMP: 03/18/17 05:07 03/18/17 05:07 Quality Measures - VTE Contraindication to Pharmacological VTE Prophylaxis: Clinical assessment deems Pt at low risk, no prophalaxis needed Specialty Discharge - Follow Up or Referrals Follow up with: Sheng Goodman MD [Physician] - 2 Weeks (2 weeks after discharge with ECG.)
[2017-03-18] MEDS: ATORVASTATIN 40 MG TABLET PO SCH (22:58)
[2017-03-18] MEDS: BISACODYL 5 MG TABLET PO SCH (22:59)
[2017-03-19] MEDS: METOCLOPRAMIDE 10 MG/2 ML VIAL IV SCH ×4 (00:03→17:43)
[2017-03-19] MEDS: SODIUM CHLORIDE 0.9% 1,000 ML IV SCH ×2 (02:46→16:01)
[2017-03-19 07:06] LABS: Basophils # 0.1 10*3/uL (0.0-0.2); Basophils % 0.5 % (0.0-0.8); Eosinophils # 0.3 10*3/uL (0.0-0.87); Eosinophils % 2.5 % (0.00-10.9); Hematocrit 33.1 VOL% (42.0-52.0); Hemoglobin 11.3 GM/DL (14.0-18.0); Immature Granulocytes % 0.7 %; Immature Granulocytes Absolute 0.08 #; Lymphocytes # 1.4 10*3/uL (1.4-4.0); Lymphocytes % 12.5 % (21.2-54.2); Mean Corpuscular HGB Conc 34.1 GM/DL (32-36); Mean Corpuscular Hemoglobin 31 PG (27-34); Mean Corpuscular Volume 89.5 FL (87-102); Mean Platelet Volume 9.3 FL (9.6-12.0); Monocytes # 1.4 10*3/uL (0.11-0.8); Monocytes % 12.4 % (1.7-12.7); Neutrophils # 8.1 10*3/uL (1.4-7.4); Neutrophils % 71.4 % (38.7-73.9); Platelet Count 601 T/CUMM (130-400); Red Cell Distribution Width 11.9 % (9.3-17.3); White Blood Count 11.4 T/CUMM (4-12)
[2017-03-19 07:40] LABS: Albumin 2.8 G/DL (3.4-5.0); Bilirubin,Total 0.8 MG/DL (0.2-1.0); Calcium 8.8 MG/DL (8.5-10.1); Magnesium 2.5 MG/DL (1.8-2.4); Osmolality,Calculated 280.5 MOS/KG (273-304); Phosphorous 3.2 MG/DL (2.5-4.9); Potassium 4.3 MMOL/L (3.5-5.1); Total Protein 6.2 G/DL (6.4-8.3)
--- NOTE | 2017-03-19 09:15 | Hospitalist Progress Note ---
<Celia Connellyda - Last Filed: 03/19/17 09:13> Assessment and Plan (1) Constipation Status: Acute Assessment and plan: CT scan showed diffuse gaseous distention of small bowel loops and colon suggesting a prominent ileus. The patient was given mag citrate in the ED however has not experienced any results. We will start lactulose every [address] abdomen and pelvis for further evaluation. 03/18-NG tube placed on yesterday. Patient verbalizes "some relief". Abdomen remains grossly distended. Evaluated by surgery; the patient deemed not appropriate for surgical intervention at this time. We will consult GI to evaluate. 03/19-NG tube patent and intact; output marginal. Evaluated by GI on yesterday. Every 4 hours enemas initiated; however initiation has yielded no relief or results. Patient verbalizes frustration regarding the lack of effectiveness. GI made mention of possible unprepped flex sigmoid or neostigmine; these are in the strong possibilities. We will await GIs evaluation for further recommendation. Current Visit: Yes (2) Hypertension Status: Chronic Assessment and plan: Blood pressures are stable at the time of ED presentation. Home medications have been reconciled. Cardiology has been consulted to assist during the clinical encounter. Current Visit: No (3) Coronary artery disease Status: Chronic Assessment and plan: Patient recently underwent coronary artery bypass graft on March 06, 2017. The patient is not experiencing any significant cardiac abnormalities at this time; however we will consult cardiology to assist during the clinical encounter. Current Visit: Yes Qualifiers: Coronary Disease-Associated Artery/Lesion type: bypass graft [place] vs. transplanted heart: [place] heart Associated angina: without angina Qualified Code(s): I25.810 - Atherosclerosis of coronary artery bypass graft(s) without angina pectoris (4) Status post coronary artery bypass graft Status: Chronic Assessment and plan: Patient recently underwent coronary artery bypass graft on March 06, 2017. We will consult cardiology to assist during the clinical encounter. Current Visit: No Hospitalist: Subjective Interval history: Patient seen and examined; patient verbalizes frustration regarding the multiple enema administration on last night. He states "is not doing any good and I am not taken anymore enema". NG tube patent and intact 200 cc noted output at the time of encounter. GI is assisting during the clinical encounter we will await further recommendations per Dr. Baez. Exam - Constitutional Vitals: Period Temp Pulse Resp BP Sys/Schmitt Pulse Ox Last 24 Hr 96.2 F-98.3 F 75-86 18-20 138-159/81-88 93-95 General appearance: normal weight, mild distress - Head Head exam: Present: normal inspection, normocephalic, atraumatic - Eye Eye exam: Present: EOMI, conjunctival injection Pupils: Present: TERESA, normal accommodation - ENT ENT exam: Present: normal exam, normal external ear exam, normal oropharynx - Neck Neck exam: Present: normal inspection. Absent: lymphadenopathy, meningismus, tenderness, thyromegaly - Respiratory Respiratory exam: Present: clear to auscultation bilaterally. Absent: rales, rhonchi, stridor, wheezes - Cardiovascular Cardiovascular exam: Present: regular rate and rhythm - GI/Abdominal GI/Abdominal exam: Present: distended, hyperactive bowel sounds, soft - Extremities Exam Extremities exam: Present: normal inspection, normal capillary refill, full ROM. Absent: edema - Back Exam Back exam: Present: normal inspection - Neurological Exam Neurological exam: Present: alert, oriented X3 - Psychiatric Psychiatric exam: Present: flat affect - Skin Skin exam: Present: normal color, warm, dry Results - Labs CBC & BMP: 03/19/17 06:26 03/19/17 06:26 Lab Results: I have reviewed the past 24 hour labs Quality Measures - VTE Contraindication to Pharmacological VTE Prophylaxis: Clinical assessment deems Pt at low risk, no prophalaxis needed Specialty Discharge - Follow Up or Referrals Follow up with: Sheng Goodman MD [Physician] - 2 Weeks (2 weeks after discharge with ECG.) <Nighat Andrea - Last Filed: 03/19/17 13:07> Assessment and Plan (1) Ileus Status: Acute Current Visit: Yes (2) Coronary artery disease Status: Chronic Current Visit: Yes Qualifiers: Coronary Disease-Associated Artery/Lesion type: bypass graft [place] vs. transplanted heart: [place] heart Associated angina: without angina Qualified Code(s): I25.810 - Atherosclerosis of coronary artery bypass graft(s) without angina pectoris (3) Status post coronary artery bypass graft Status: Chronic Current Visit: No (4) Hypertension Status: Chronic Current Visit: No (5) Constipation Status: Acute Current Visit: Yes (6) Abdominal pain Status: Acute Current Visit: Yes Hospitalist: Subjective Interval history: Patient seen and examined independently of TREVER Connelly, agree with assessment and plan as documented. Patient still looks quite comfortable. Denies bowel movement or flatus. Surgery and GI on board. Exam - Constitutional Vitals: Period Temp Pulse Resp BP Sys/Schmitt Pulse Ox Last 24 Hr 96.2 F-98.3 F 75-86 20-20 126-159/84-88 91-95 Results - Labs CBC & BMP: 03/19/17 06:26 03/19/17 06:26
[2017-03-19] MEDS: ASPIRIN EC 81 MG TABLET PO SCH (09:17)
[2017-03-19] MEDS: CETIRIZINE 10 MG TABLET PO SCH (09:17)
[2017-03-19] MEDS: CARVEDILOL 6.25 MG TABLET PO SCH ×2 (09:17→17:43)
[2017-03-19] MEDS: POLYETHYLENE GLYCOL POWDER 17 GM PACK PO SCH ×3 (09:19→21:07)
--- NOTE | 2017-03-19 10:32 | General Surgery Progress Note ---
Assessment and Plan (1) Ileus Status: Acute Assessment and plan: The patient is pretty much unchanged from yesterday. Enemas and Reglan were of no relief to the patient. I will defer to gastroenterology for the medical treatment of this medical problem. Surgery typically is not necessary in this situation but I will follow in case he fails medical management. Current Visit: Yes Subjective Patient reports: Present: no new complaints, no flatus, no bowel movement Exam - Constitutional Vitals: Period Temp Pulse Resp BP Sys/Schmitt Pulse Ox Last 24 Hr 96.2 F-98.3 F 75-86 18-20 138-159/81-88 93-95 General appearance: no acute distress, over weight - Head Head exam: Present: normal inspection, normocephalic - Eye Eye exam: Present: EOMI Pupils: Present: TERESA - ENT ENT exam: Present: normal exam Mouth exam: Present: normal external inspection, normal voice - Neck Neck exam: Present: normal inspection, trachea midline - Respiratory Respiratory exam: Present: clear to auscultation bilaterally. Absent: accessory muscle use, chest wall tenderness - Cardiovascular Cardiovascular exam: Present: RRR. Absent: systolic murmur, tachycardia - GI/Abdominal GI/Abdominal exam: Present: distended, hypoactive bowel sounds, soft. Absent: guarding, tenderness, rebound - Extremities Exam Extremities exam: Present: normal inspection, normal capillary refill - Back Exam Back exam: Present: normal inspection - Neurological Exam Neurological exam: Present: alert, oriented X3 Speech: Present: normal - Skin Skin exam: Present: normal color, warm Results - Labs CBC & BMP: 03/19/17 06:26 03/19/17 06:26 Quality Measures - VTE Contraindication to Pharmacological VTE Prophylaxis: Clinical assessment deems Pt at low risk, no prophalaxis needed Specialty Discharge - Follow Up or Referrals Follow up with: Sheng Goodman MD [Physician] - 2 Weeks (2 weeks after discharge with ECG.)
--- NOTE | 2017-03-19 19:05 | Gastrointestinal Progress Note ---
Assessment and Plan (1) Ileus, unspecified Status: Acute Assessment and plan: The patient has an overall GI tract hypomotility noted here. I am not completely convinced there is not some low colonic obstruction that is producing the above changes however the patient was also kept on narcotics did receive a fair amount of lactulose which may have added to the gaseous distention of the colon and the small bowel. We will first start by giving this patient enemas every 4 hours for for a period 24 hours to see if this will cause the colon to "open up" appropriately. If this fails, we may need to perform an unprepped flex sig in order to establish that there is no colon cancer present producing a low obstruction. If this proves to be colonic pseudoobstruction we may consider use of neostigmine as a final purgative. This will need to be done on telemetry in order to watch for bradycardia. Agree with the NG tube for the current ileus. We will continue to watch the patient's NG tube output. 03/19/17--That. The poor response to enemas and discontinuation of the patient' s narcotics, we will go ahead and perform unprepped flexible sigmoidoscopy to rule out a low GI tract lesion that might be producing obstruction. This will take place tomorrow morning. Current Visit: Yes (2) Constipation by delayed colonic transit Status: Acute Assessment and plan: As noted above. Will use the MiraLAX 3 times daily in addition to the soapsuds enemas, and discontinuation of narcotics use entirely. If we thought this was narcotic induced constipation a good treatment might be a Relistor which can be given subcutaneously, but he does not seem like he is taking enough narcotics to warrant this. 03/19/17--No response from discontinuation of the narcotics completely. Continue to observe NG tube output, proceed with unprepped flex sig tomorrow with sedation. Current Visit: Yes (3) Anemia Status: Acute Assessment and plan: Continue to observe the patient's hematocrit, we will also monitor the patient' s white blood cell count to see if this continues to elevate. 03/19/17--The patient's white blood cell count has now peaked and is starting to come back to the 11 range. We will continue to monitor this and the anemia. The hematocrit remained stable at 33%. Current Visit: No Gastroenterology - PN: Subj Interval history: Patient is experiencing some distention with no passage of stools or bowel movements per rectum for reasons that remain unclear to me. There may be a low colonic lesion that is preventing passage of gas and stool and at this point since the enemas have failed we will go ahead and perform unprepped flex sig tomorrow in order to assess this appropriately. He feels distended but not excessively painful. Exam (Progress Note) - Constitutional Vitals: Period Temp Pulse Resp BP Sys/Schmitt Pulse Ox Last 24 Hr 97.3 F-98.3 F 75-86 20-20 126-159/85-88 91-96 General appearance: mild distress - Head Head exam: Present: normocephalic - Eye Eye exam: Present: EOMI - Respiratory Respiratory exam: Present: clear to auscultation bilaterally. Absent: rhonchi, stridor, wheezes - Cardiovascular Cardiovascular exam: Present: regular rate and rhythm - GI/Abdominal GI/Abdominal exam: Present: normal bowel sounds, distended (This is fairly severe with distant bowel sounds), tenderness (Fairly severe in all quadrants with massive distention. Patient's NG tube put out 1000 mL yesterday but today only 250 during the last shift.), soft. Absent: rebound - Extremities Exam Extremities exam: Present: edema - Neurological Exam Neurological exam: Present: alert, oriented X3 - Psychiatric Psychiatric exam: Present: normal affect, normal mood - Skin Skin exam: Present: warm Results - Labs CBC & BMP: 03/19/17 06:26 03/19/17 06:26 Specialty Discharge - Follow Up or Referrals Follow up with: Sheng Goodman MD [Physician] - 2 Weeks (2 weeks after discharge with ECG.)
[2017-03-19] MEDS: ATORVASTATIN 40 MG TABLET PO SCH (21:07)
[2017-03-20] MEDS: METOCLOPRAMIDE 10 MG/2 ML VIAL IV SCH ×2 (00:42→06:43)
[2017-03-20 05:10] LABS: Basophils # 0.1 10*3/uL (0.0-0.2); Basophils % 0.6 % (0.0-0.8); Eosinophils # 0.4 10*3/uL (0.0-0.87); Hematocrit 32.1 VOL% (42.0-52.0); Immature Granulocytes % 0.5 %; Immature Granulocytes Absolute 0.06 #; Lymphocytes # 1.4 10*3/uL (1.4-4.0); Lymphocytes % 11.6 % (21.2-54.2); Mean Corpuscular HGB Conc 34.3 GM/DL (32-36); Mean Corpuscular Hemoglobin 30 PG (27-34); Mean Corpuscular Volume 87.5 FL (87-102); Mean Platelet Volume 9.4 FL (9.6-12.0); Monocytes # 1.5 10*3/uL (0.11-0.8); Monocytes % 12.4 % (1.7-12.7); Neutrophils # 8.7 10*3/uL (1.4-7.4); Neutrophils % 71.9 % (38.7-73.9); Platelet Count 645 T/CUMM (130-400); Red Blood Count 3.67 MC/CUMM (3.8-5.5); Red Cell Distribution Width 11.8 % (9.3-17.3); White Blood Count 12.1 T/CUMM (4-12)
[2017-03-20] MEDS: SODIUM CHLORIDE 0.9% 1,000 ML IV SCH ×2 (05:17→20:26)
[2017-03-20 05:51] LABS: Albumin 2.7 G/DL (3.4-5.0); Calcium 8.8 MG/DL (8.5-10.1); Magnesium 2.3 MG/DL (1.8-2.4); Osmolality,Calculated 273.8 MOS/KG (273-304); Phosphorous 2.9 MG/DL (2.5-4.9); Potassium 4.1 MMOL/L (3.5-5.1); Total Protein 6.1 G/DL (6.4-8.3)
--- NOTE | 2017-03-20 07:52 | Event Note ---
This patient was in endoscopy when I went see him this morning. Hopefully endoscopic and medical treatments will be enough to resolve his current motility problem. Please call with any questions. I will check in on Thursday if he still here.
--- NOTE | 2017-03-20 08:50 | Operative Note ---
Date of procedure: 03/20/17 Pre-op diagnosis: Ileus and large bowel dilation with gas, ? pseudoobstruction? Post-op diagnosis: other (Successful colonoscopy to the terminal ileum all of which appeared normal is somewhat dilated, this patient has colonic/intestinal pseudoobstruction) Procedure: PROCEDURE: Unprepped colonoscopy to the cecum REFERRING PHYSICIAN: Kwan Lester MD INDICATIONS: This is a patient who has a history of obstipation status post CABG despite use of multiple enemas now with concern over potential pseudoobstruction versus low colonic obstruction with cancer. The prior H&P was reviewed and interrim changes are as noted: No change from GI consultation this admission ENDOSCOPIST: Cecilio Baez MD ENDOSCOPE: [employer] Video 100 System colonoscope COLON PREPARATION: Fleet's enemas 2 ASA CLASS: 4 EXAM: CV: regular rate and rhythm Respiratory: Clear without wheezes Abdominal: active bowel sounds Rectal: Good tone, no fissures or fistulas MEDICATION: Per nursing anesthesia protocol, see their notes PROCEDURE: After discussion of the potential risks and benefits of colonoscopy, the informed consent was obtained, from patient or health care surrogate. The patient was then placed in the left lateral decubitus position where sedation was achieved as noted above. Rectal examination was followed by insertion of the colonoscope. The colonoscope was passed under direct visualization to the cecum. Advancement was facilitated by insertion/withdrawl techniques, abdominal pressure and patient positioning. Once the cecal pole was reached, slow withdrawal was performed with the findings as noted below. The patient tolerated the procedure well and without complication. QUALITY OF PREP: Surprisingly good WITHDRAWL TIME: 5 minutes 33 seconds BIOPSIES: None obtained PHOTOGRAPHS: Obtained FINDINGS: The musoca appeared moderately dilated in the following regions: rectum, sigmoid colon, descending colon, splenic flexure, transverse colon, hepatic flexure, ascending colon and cecum. Position within the cecum was confirmed by ileocecal valve, appendiceal oriface, and the convergence of folds (crows foot). No colitis, polyp, mass or AVM was noted throughout the colon. No diverticulosis noted. Intubation of the TI was achieved x 5 cm with normal appearence and moderate size internal hemorrhoids noted on retroflex. IMPRESSION: Successful colonoscopy to the terminal ileum all of which appeared normal is somewhat dilated, this patient has colonic/intestinal pseudoobstruction RECOMMENDATIONS: High fiber diet Repeat colonosocopy will be in 10 years given that there were no polyps discovered on today's colonoscopy with a surprisingly good prep. Citrucel 1 tablespoon in 12 oz juice BID: 1 bottle: :11 Follow up by phone for biopsy results in 1-2 weeks by phone Discontinue Reglan start erythromycin 200 mg IV every 6 hours. If the above erythromycin fails to help the patient since several days we need to consider neostigmine trial. Cecilio Baez MD COPY TO: Kwan Lester MD Anesthesia: MAC Surgeon / Physician: Cecilio Baez Estimated blood loss: minimal Specimens: none sent Condition: stable Disposition: post procedure unit (G.I. Suite) Results - Labs CBC & BMP: 03/20/17 04:29 03/20/17 04:29 Discharge Plan - Discharge Medications No Action Aspirin EC Tab 81 mg PO DAILY Atorvastatin [Lipitor] 40 mg PO BEDTIME #30 tablet Cetirizine Tab [ZyrTEC Tab] 10 mg PO DAILY Polyethylene Glycol Powder [Miralax] 17 gm PO BID Carvedilol [Coreg] 6.25 mg PO BID #60 tablet Docusate Sodium Cap [Colace Cap] 100 mg PO DAILY #30 capsule Bisacodyl Tab [Dulcolax Tab] 5 mg PO QPM Levofloxacin Tab [Levaquin Tab] 500 mg PO DAILY - Follow Up or Referral Follow Up: Sheng Goodman MD [Physician] - 2 Weeks (2 weeks after discharge with ECG.) - Forms/Instructions
--- NOTE | 2017-03-20 08:52 | Anesthesia Post-Op ---
Anesthesia Post OP - Post Ansesthetic Evaluation Patient seen in post op: Yes Resp: within normal limits CV: within normal limits Mental: within normal limits Temp: within normal limits [id number]: within normal limits Nausea and Vomiting: within normal limits Pain: within normal limits
--- NOTE | 2017-03-20 08:54 | Gastrointestinal Progress Note ---
Assessment and Plan (1) Colonic pseudoobstruction Status: Acute Assessment and plan: The patient has a colonoscopy that demonstrates dilation from one end to the other without evidence of obstruction consistent with colonic pseudoobstruction , this occurred post CABG and may be transient. The patient is failed Reglan at this point we will go ahead and try erythromycin and see if this does any better for him. If his NG tube outputs are low over the weekend we could consider giving him a low residue cardiac diet potentially. Current Visit: Yes (2) Ileus, unspecified Status: Acute Assessment and plan: The patient has an overall GI tract hypomotility noted here. I am not completely convinced there is not some low colonic obstruction that is producing the above changes however the patient was also kept on narcotics did receive a fair amount of lactulose which may have added to the gaseous distention of the colon and the small bowel. We will first start by giving this patient enemas every 4 hours for for a period 24 hours to see if this will cause the colon to "open up" appropriately. If this fails, we may need to perform an unprepped flex sig in order to establish that there is no colon cancer present producing a low obstruction. If this proves to be colonic pseudoobstruction we may consider use of neostigmine as a final purgative. This will need to be done on telemetry in order to watch for bradycardia. Agree with the NG tube for the current ileus. We will continue to watch the patient's NG tube output. 03/19/17--The poor response to enemas and discontinuation of the patient's narcotics, we will go ahead and perform unprepped flexible sigmoidoscopy to rule out a low GI tract lesion that might be producing obstruction. This will take place tomorrow morning. 03/20/17--The patient has been off of his narcotics, and on Reglan with relatively little benefit. Colonoscopy demonstrated colonic pseudoobstruction but no actual obstruction, polyps, ischemia, colitis or other changes. We will try erythromycin at this point to discontinue the Reglan. Current Visit: Yes (3) Anemia Status: Acute Assessment and plan: Continue to observe the patient's hematocrit, we will also monitor the patient' s white blood cell count to see if this continues to elevate. 03/19/17--The patient's white blood cell count has now peaked and is starting to come back to the 11 range. We will continue to monitor this and the anemia. The hematocrit remained stable at 33%. Current Visit: No Gastroenterology - PN: Subj Interval history: No new complaints Exam (Progress Note) - Constitutional Vitals: Period Temp Pulse Resp BP Sys/Schmitt Pulse Ox Last 24 Hr 97.1 F-98.1 F 71-95 18-20 126-159/71-87 91-96 General appearance: mild distress - Head Head exam: Present: normocephalic - Eye Eye exam: Present: EOMI - Respiratory Respiratory exam: Present: clear to auscultation bilaterally - Cardiovascular Cardiovascular exam: Present: regular rate and rhythm - GI/Abdominal GI/Abdominal exam: Present: distended, soft. Absent: guarding, tenderness, rebound - Neurological Exam Neurological exam: Present: alert, oriented X3, CN II-XII intact. Absent: motor sensory deficit - Psychiatric Psychiatric exam: Present: normal affect, normal mood - Skin Skin exam: Present: warm Results - Labs CBC & BMP: 03/20/17 04:29 03/20/17 04:29 Specialty Discharge - Follow Up or Referrals Follow up with: Sheng Goodman MD [Physician] - 2 Weeks (2 weeks after discharge with ECG.)
--- NOTE | 2017-03-20 09:07 | Hospitalist Progress Note ---
<Herbie Connelly - Last Filed: 03/20/17 09:05> Assessment and Plan (1) Constipation Status: Acute Assessment and plan: CT scan showed diffuse gaseous distention of small bowel loops and colon suggesting a prominent ileus. The patient was given mag citrate in the ED however has not experienced any results. We will start lactulose every [address] abdomen and pelvis for further evaluation. 03/18-NG tube placed on yesterday. Patient verbalizes "some relief". Abdomen remains grossly distended. Evaluated by surgery; the patient deemed not appropriate for surgical intervention at this time. We will consult GI to evaluate. 03/19-NG tube patent and intact; output marginal. Evaluated by GI on yesterday. Every 4 hours enemas initiated; however initiation has yielded no relief or results. Patient verbalizes frustration regarding the lack of effectiveness. GI made mention of possible unprepped flex sigmoid or neostigmine; these are in the strong possibilities. We will await GIs evaluation for further recommendation. 03/20-patient had no significant results on yesterday. Patient is scheduled for unprepped flex sigmoid this a.m. per GI. We will await results and further recommendations per GI. Current Visit: Yes (2) Hypertension Status: Chronic Assessment and plan: Blood pressures are stable at the time of ED presentation. Home medications have been reconciled. Cardiology has been consulted to assist during the clinical encounter. Current Visit: No (3) Coronary artery disease Status: Chronic Assessment and plan: Patient recently underwent coronary artery bypass graft on March 06, 2017. The patient is not experiencing any significant cardiac abnormalities at this time; however we will consult cardiology to assist during the clinical encounter. Current Visit: Yes Qualifiers: Coronary Disease-Associated Artery/Lesion type: bypass graft [place] vs. transplanted heart: [place] Associated angina: without angina Qualified Code(s): I25.810 - Atherosclerosis of coronary artery bypass graft(s) without angina pectoris (4) Status post coronary artery bypass graft Status: Chronic Assessment and plan: Patient recently underwent coronary artery bypass graft on March 06, 2017. We will consult cardiology to assist during the clinical encounter. Current Visit: No Hospitalist: Subjective Interval history: Patient seen examined; no significant overnight events. Scheduled for unprepped sigmoid flex; this a.m. per GI. Exam - Constitutional Vitals: Period Temp Pulse Resp BP Sys/Schmitt Pulse Ox Last 24 Hr 97.1 F-98.1 F 71-95 12-20 116-159/69-87 91-96 General appearance: normal weight, mild distress - Head Head exam: Present: normal inspection, normocephalic, atraumatic - Eye Eye exam: Present: EOMI, conjunctival injection Pupils: Present: TERESA, normal accommodation - ENT ENT exam: Present: normal exam, normal external ear exam, normal oropharynx - Neck Neck exam: Present: normal inspection. Absent: lymphadenopathy, meningismus, thyromegaly - Respiratory Respiratory exam: Present: clear to auscultation bilaterally. Absent: rales, rhonchi, stridor, wheezes - Cardiovascular Cardiovascular exam: Present: regular rate and rhythm. Absent: carotid bruit, diastolic murmur, gallop, JVD, rubs, systolic murmur - GI/Abdominal GI/Abdominal exam: Present: distended, hypoactive bowel sounds, soft - Extremities Exam Extremities exam: Present: normal inspection, normal capillary refill, full ROM. Absent: edema - Back Exam Back exam: Present: normal inspection - Neurological Exam Neurological exam: Present: alert, oriented X3, CN II-XII intact - Psychiatric Psychiatric exam: Present: normal affect, normal mood - Skin Skin exam: Present: normal color, warm, dry Results - Labs CBC & BMP: 03/20/17 04:29 03/20/17 04:29 Lab Results: I have reviewed the past 24 hour labs Quality Measures - VTE Contraindication to Pharmacological VTE Prophylaxis: Clinical assessment deems Pt at low risk, no prophalaxis needed Specialty Discharge - Follow Up or Referrals Follow up with: Sheng Goodman MD [Physician] - 2 Weeks (2 weeks after discharge with ECG.) <Nighat Andrea - Last Filed: 03/20/17 14:33> Assessment and Plan (1) Ileus Status: Acute Current Visit: Yes (2) Coronary artery disease Status: Chronic Current Visit: Yes Qualifiers: Coronary Disease-Associated Artery/Lesion type: bypass graft [place] vs. transplanted heart: [place] heart Associated angina: without angina Qualified Code(s): I25.810 - Atherosclerosis of coronary artery bypass graft(s) without angina pectoris (3) Status post coronary artery bypass graft Status: Chronic Current Visit: No (4) Hypertension Status: Chronic Current Visit: No (5) Constipation Status: Acute Current Visit: Yes (6) Abdominal pain Status: Acute Current Visit: Yes Hospitalist: Subjective Interval history: Patient seen and examined independently of [employer] INSPECTOR Godwin, agree with assessment and plan as documented. Flex sig with pseudo-obstruction. Patient feeling better today, passing flatus, no bowel movement. Continue NPO for now. NGT in place. Exam - Constitutional Vitals: Period Temp Pulse Resp BP Sys/Schmitt Pulse Ox Last 24 Hr 97.1 F-98.1 F 67-95 12-21 114-159/69-90 93-97 Results - Labs CBC & BMP: 03/20/17 04:29 03/20/17 04:29
--- NOTE | 2017-03-20 09:43 | General Surgery Progress Note ---
Assessment and Plan (1) Ileus Status: Acute Assessment and plan: Endoscopy today was normal. Continue treatment of pseudoobsruction by GI. Call if needed Current Visit: Yes Subjective Patient reports: Present: no new complaints, feels better, pain is less, no flatus, no bowel movement, afebrile Exam - Constitutional Vitals: Period Temp Pulse Resp BP Sys/Schmitt Pulse Ox Last 24 Hr 97.1 F-98.1 F 71-95 12-21 114-159/69-90 91-96 General appearance: no acute distress, over weight - Head Head exam: Present: normal inspection, normocephalic - Eye Eye exam: Present: EOMI Pupils: Present: TERESA - ENT ENT exam: Present: normal exam Mouth exam: Present: normal external inspection, normal voice - Neck Neck exam: Present: normal inspection, trachea midline - Respiratory Respiratory exam: Present: clear to auscultation bilaterally. Absent: accessory muscle use, chest wall tenderness - Cardiovascular Cardiovascular exam: Present: RRR. Absent: systolic murmur, tachycardia - GI/Abdominal GI/Abdominal exam: Present: distended, hypoactive bowel sounds, soft - Extremities Exam Extremities exam: Present: normal inspection, normal capillary refill - Back Exam Back exam: Present: normal inspection - Neurological Exam Neurological exam: Present: alert, oriented X3 Speech: Present: normal - Skin Skin exam: Present: normal color, warm Results - Labs CBC & BMP: 03/20/17 04:29 03/20/17 04:29 Quality Measures - VTE Contraindication to Pharmacological VTE Prophylaxis: Clinical assessment deems Pt at low risk, no prophalaxis needed Specialty Discharge - Follow Up or Referrals Follow up with: Sheng Goodman MD [Physician] - 2 Weeks (2 weeks after discharge with ECG.)
[2017-03-20] MEDS: ASPIRIN EC 81 MG TABLET PO SCH (10:34)
[2017-03-20] MEDS: CARVEDILOL 6.25 MG TABLET PO SCH ×2 (10:35→16:04)
[2017-03-20] MEDS: CETIRIZINE 10 MG TABLET PO SCH (10:35)
[2017-03-20] MEDS: POLYETHYLENE GLYCOL POWDER 17 GM PACK PO SCH ×3 (10:38→20:27)
[2017-03-20] MEDS: ERYTHROMYCIN INJ 250 MG in SODIUM CHLORIDE 0.9% 100 ML IV SCH ×3 (10:39→23:03)
[2017-03-20] MEDS: ATORVASTATIN 40 MG TABLET PO SCH (20:26)
[2017-03-21] MEDS: ERYTHROMYCIN INJ 250 MG in SODIUM CHLORIDE 0.9% 100 ML IV SCH ×4 (02:11→21:50)
[2017-03-21 04:48] LABS: Basophils # 0.1 10*3/uL (0.0-0.2); Basophils % 0.7 % (0.0-0.8); Eosinophils # 0.5 10*3/uL (0.0-0.87); Eosinophils % 5.6 % (0.00-10.9); Hematocrit 30.1 VOL% (42.0-52.0); Hemoglobin 10.2 GM/DL (14.0-18.0); Immature Granulocytes % 0.7 %; Immature Granulocytes Absolute 0.06 #; Lymphocytes # 1.8 10*3/uL (1.4-4.0); Lymphocytes % 21.3 % (21.2-54.2); Mean Corpuscular HGB Conc 33.9 GM/DL (32-36); Mean Corpuscular Hemoglobin 30 PG (27-34); Mean Corpuscular Volume 89.1 FL (87-102); Mean Platelet Volume 9.4 FL (9.6-12.0); Monocytes # 1.2 10*3/uL (0.11-0.8); Monocytes % 13.3 % (1.7-12.7); Neutrophils # 5.1 10*3/uL (1.4-7.4); Neutrophils % 58.4 % (38.7-73.9); Platelet Count 513 T/CUMM (130-400); Red Blood Count 3.38 MC/CUMM (3.8-5.5); Red Cell Distribution Width 11.9 % (9.3-17.3); White Blood Count 8.6 T/CUMM (4-12)
--- NOTE | 2017-03-21 08:33 | Hospitalist Progress Note ---
Assessment and Plan (1) Ileus Status: Acute Assessment and plan: Impression: 1. Ileus Plan: He appears to be tolerating clamping of the NG tube. We will continue this; I will check back after lunch and consider removing the tube if he tolerates clamping for several hours. This note was completed using [employer] voice recognition software. There may be pigment mixer errors as a result. Current Visit: Yes Hospitalist: Subjective Interval history: Follow-up ileus. The patient has been out of bed this morning and clamped his NG tube when he went to the bathroom. He reports passage of some liquid stool. He has tolerated the NG tube being clamped for about an hour so far. Exam - Constitutional Vitals: Period Temp Pulse Resp BP Sys/Schmitt Pulse Ox Last 24 Hr 97.5 F-98.6 F 67-83 12-21 114-158/69-90 92-100 Vital signs are noted above. He is sitting in a chair at the bedside. Heart is regular with no murmur or gallop. Lungs are clear with no rales or wheezes. Abdomen is soft with positive bowel sounds. He is awake and alert Results - Labs CBC & BMP: 03/21/17 02:56 03/20/17 04:29 Lab Results: I have reviewed the past 24 hour labs Quality Measures - VTE Contraindication to Pharmacological VTE Prophylaxis: Clinical assessment deems Pt at low risk, no prophalaxis needed Specialty Discharge - Follow Up or Referrals Follow up with: Sheng Goodman MD [Physician] - 2 Weeks (2 weeks after discharge with ECG.)
[2017-03-21] MEDS: ASPIRIN EC 81 MG TABLET PO SCH (08:52)
[2017-03-21] MEDS: CARVEDILOL 6.25 MG TABLET PO SCH ×2 (08:52→17:12)
[2017-03-21] MEDS: POLYETHYLENE GLYCOL POWDER 17 GM PACK PO SCH (08:53)
[2017-03-21] MEDS: CETIRIZINE 10 MG TABLET PO SCH (08:53)
[2017-03-21] MEDS: SODIUM CHLORIDE 0.9% 1,000 ML IV SCH ×2 (08:53→21:24)
--- NOTE | 2017-03-21 14:27 | Gastrointestinal Progress Note ---
Assessment and Plan (1) Colonic pseudoobstruction Status: Acute Assessment and plan: The patient has a colonoscopy that demonstrates dilation from one end to the other without evidence of obstruction consistent with colonic pseudoobstruction , this occurred post CABG and may be transient. The patient is failed Reglan at this point we will go ahead and try erythromycin and see if this does any better for him. If his NG tube outputs are low over the weekend we could consider giving him a low residue cardiac diet potentially. 03/21/17--The patient is tolerating the erythromycin adequately but this does not appear to be emptying his colon as expected. Colonoscopy demonstrated the pseudoobstruction yesterday and the patient is empty. He has had a few loose stools but seems back to retaining bowel movements as previous. I think I will try a clear liquid diet to see if stimulate him with oral intake will help with the above ileus/colonic pseudoobstruction. Electrolytes previously well controlled. White blood cell count continues to improve. Current Visit: Yes (2) Ileus, unspecified Status: Acute Assessment and plan: The patient has an overall GI tract hypomotility noted here. I am not completely convinced there is not some low colonic obstruction that is producing the above changes however the patient was also kept on narcotics did receive a fair amount of lactulose which may have added to the gaseous distention of the colon and the small bowel. We will first start by giving this patient enemas every 4 hours for for a period 24 hours to see if this will cause the colon to "open up" appropriately. If this fails, we may need to perform an unprepped flex sig in order to establish that there is no colon cancer present producing a low obstruction. If this proves to be colonic pseudoobstruction we may consider use of neostigmine as a final purgative. This will need to be done on telemetry in order to watch for bradycardia. Agree with the NG tube for the current ileus. We will continue to watch the patient's NG tube output. 03/19/17--The poor response to enemas and discontinuation of the patient's narcotics, we will go ahead and perform unprepped flexible sigmoidoscopy to rule out a low GI tract lesion that might be producing obstruction. This will take place tomorrow morning. 03/20/17--The patient has been off of his narcotics, and on Reglan with relatively little benefit. Colonoscopy demonstrated colonic pseudoobstruction but no actual obstruction, polyps, ischemia, colitis or other changes. We will try erythromycin at this point to discontinue the Reglan. 03/21/17--I think at this point will try some Relistor at 12 mg per day and see if this helps out with his underlying constipation issues. I think it is at least worth a 1 to 2 day trial for efficacy. We can always consider doing the neostigmine if necessary. Current Visit: Yes (3) Anemia Status: Acute Assessment and plan: Continue to observe the patient's hematocrit, we will also monitor the patient' s white blood cell count to see if this continues to elevate. 03/19/17--The patient's white blood cell count has now peaked and is starting to come back to the 11 range. We will continue to monitor this and the anemia. The hematocrit remained stable at 33%. Current Visit: No Gastroenterology - PN: Subj Interval history: The patient did have 2 spontaneous bowel movements as a result of his colonoscopy yesterday but is finding that his abdomen is more distended again today and is not really passing any further bowel movements. We are trying to avoid neostigmine introduction, although I am fairly certain this would work and the patient we might want to wait until he can be taken down to telemetry and make sure there is some atropine nearby, per protocol. Given his clinical situation at this point and will try some relistor 12 mg per day subcutaneously instead of MiraLAX to see if this does any better for him. He remains in fairly good spirits Exam (Progress Note) - Constitutional Vitals: Period Temp Pulse Resp BP Sys/Schmitt Pulse Ox Last 24 Hr 97.5 F-98.6 F 69-81 18-20 123-141/69-79 92-100 General appearance: no acute distress - Eye Eye exam: Present: EOMI - Respiratory Respiratory exam: Present: clear to auscultation bilaterally. Absent: rhonchi, stridor, wheezes - Cardiovascular Cardiovascular exam: Present: regular rate and rhythm - GI/Abdominal GI/Abdominal exam: Present: normal bowel sounds, distended, tenderness, soft. Absent: guarding, rebound - Extremities Exam Extremities exam: Absent: edema - Neurological Exam Neurological exam: Present: alert, oriented X3 - Psychiatric Psychiatric exam: Present: normal affect, normal mood Results - Labs CBC & BMP: 03/21/17 02:56 03/20/17 04:29 Specialty Discharge - Follow Up or Referrals Follow up with: Sheng Goodman MD [Physician] - 2 Weeks (2 weeks after discharge with ECG.)
[2017-03-21] MEDS: METHYLNALTREXONE 12 MG/0.6 ML VIAL SUBCUT SCH (17:12)
[2017-03-21] MEDS: ATORVASTATIN 40 MG TABLET PO SCH (20:23)
[2017-03-22] MEDS: ERYTHROMYCIN INJ 250 MG in SODIUM CHLORIDE 0.9% 100 ML IV SCH ×2 (02:06→08:34)
--- NOTE | 2017-03-22 08:12 | Hospitalist Progress Note ---
Assessment and Plan (1) Ileus Status: Acute Assessment and plan: Impression: 1. Ileus, improving Plan: Remove NG tube. Continue current care.. This note was completed using [employer] voice recognition software. 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 Current Visit: Yes Hospitalist: Subjective Interval history: Follow up ileus. The patient has tolerated having the NG tube clamped for over 24 hours now. He has tolerated liquids. He is having liquid stools and passing flatus. I think we can remove the NG tube without undue risk of ileus reoccurrence. Exam - Constitutional Vitals: Period Temp Pulse Resp BP Sys/Schmitt Pulse Ox Last 24 Hr 97.2 F-98.9 F 70-78 18-20 114-149/68-84 92-98 Vital signs are noted above. Heart is regular with distant tones and no murmur or gallop. Lungs are clear with no rales or wheezes. Abdomen has occasional bowel sounds. He is awake and alert Results - Labs CBC & BMP: 03/21/17 02:56 03/20/17 04:29 Lab Results: I have reviewed the past 24 hour labs Quality Measures - VTE Contraindication to Pharmacological VTE Prophylaxis: Clinical assessment deems Pt at low risk, no prophalaxis needed Specialty Discharge - Follow Up or Referrals Follow up with: Sheng Goodman MD [Physician] - 2 Weeks (2 weeks after discharge with ECG.)
[2017-03-22] MEDS: ASPIRIN EC 81 MG TABLET PO SCH (08:34)
[2017-03-22] MEDS: CARVEDILOL 6.25 MG TABLET PO SCH ×2 (08:34→16:38)
[2017-03-22] MEDS: METHYLNALTREXONE 12 MG/0.6 ML VIAL SUBCUT SCH (08:35)
[2017-03-22] MEDS: CETIRIZINE 10 MG TABLET PO SCH (08:35)
--- NOTE | 2017-03-22 08:45 | Gastrointestinal Progress Note ---
Assessment and Plan (1) Colonic pseudoobstruction Status: Acute Assessment and plan: The patient has a colonoscopy that demonstrates dilation from one end to the other without evidence of obstruction consistent with colonic pseudoobstruction , this occurred post CABG and may be transient. The patient is failed Reglan at this point we will go ahead and try erythromycin and see if this does any better for him. If his NG tube outputs are low over the weekend we could consider giving him a low residue cardiac diet potentially. 03/21/17--The patient is tolerating the erythromycin adequately but this does not appear to be emptying his colon as expected. Colonoscopy demonstrated the pseudoobstruction yesterday and the patient is empty. He has had a few loose stools but seems back to retaining bowel movements as previous. I think I will try a clear liquid diet to see if stimulate him with oral intake will help with the above ileus/colonic pseudoobstruction. Electrolytes previously well controlled. White blood cell count continues to improve. 03/22/17--the patient is tolerating his clear liquids well with the NG tube clamped. He had 2 further bowel movements yesterday though both of these were watery is really not had anything solid to eat for days. He is hesitant about advancing his diet to something more solid and I agree with his caution. We will discontinue his IV fluids and encouraged him to eat and drink clear liquids today. I will switch him over to p.o. erythromycin and continue him on the Relistor subcutaneous injections. This is something he can administer himself when he goes home. I doubt that he will need them longer than a month. He should be encouraged to ambulate and will observe and see how he does. Potential discharge tomorrow if he is doing all right. Current Visit: Yes (2) Ileus, unspecified Status: Acute Assessment and plan: The patient has an overall GI tract hypomotility noted here. I am not completely convinced there is not some low colonic obstruction that is producing the above changes however the patient was also kept on narcotics did receive a fair amount of lactulose which may have added to the gaseous distention of the colon and the small bowel. We will first start by giving this patient enemas every 4 hours for for a period 24 hours to see if this will cause the colon to "open up" appropriately. If this fails, we may need to perform an unprepped flex sig in order to establish that there is no colon cancer present producing a low obstruction. If this proves to be colonic pseudoobstruction we may consider use of neostigmine as a final purgative. This will need to be done on telemetry in order to watch for bradycardia. Agree with the NG tube for the current ileus. We will continue to watch the patient's NG tube output. 03/19/17--The poor response to enemas and discontinuation of the patient's narcotics, we will go ahead and perform unprepped flexible sigmoidoscopy to rule out a low GI tract lesion that might be producing obstruction. This will take place tomorrow morning. 03/20/17--The patient has been off of his narcotics, and on Reglan with relatively little benefit. Colonoscopy demonstrated colonic pseudoobstruction but no actual obstruction, polyps, ischemia, colitis or other changes. We will try erythromycin at this point to discontinue the Reglan. 03/21/17--I think at this point will try some Relistor at 12 mg per day and see if this helps out with his underlying constipation issues. I think it is at least worth a 1 to 2 day trial for efficacy. We can always consider doing the neostigmine if necessary. 03/22/17--This appears to be doing better at this point, will hold off on the neostigmine but continue the erythromycin/Relistor. Current Visit: Yes (3) Anemia Status: Acute Assessment and plan: Continue to observe the patient's hematocrit, we will also monitor the patient' s white blood cell count to see if this continues to elevate. 03/19/17--The patient's white blood cell count has now peaked and is starting to come back to the 11 range. We will continue to monitor this and the anemia. The hematocrit remained stable at 33%. 03/22/17--We will check the patient's CBC again tomorrow, no bleeding source seen in the GI tract thus far. Current Visit: No Gastroenterology - PN: Subj Interval history: Patient has had 2 watery bowel movements yesterday as well as the past if a great deal of gas in his abdomen seems less distended today. Difficult to tell whether this is due to the erythromycin or the Relistor. He wants to take it easy as far as advancing his diet something more solid. Leave him on clear liquids for today but discontinue his NG tube and IV fluids to see how he does. Exam (Progress Note) - Constitutional Vitals: Period Temp Pulse Resp BP Sys/Schmitt Pulse Ox Last 24 Hr 97.2 F-98.9 F 70-78 18-20 114-149/68-84 92-98 General appearance: no acute distress - Head Head exam: Present: normocephalic - Eye Eye exam: Present: EOMI - ENT ENT exam: Present: normal exam - Respiratory Respiratory exam: Present: clear to auscultation bilaterally. Absent: rhonchi, stridor, wheezes - Cardiovascular Cardiovascular exam: Present: regular rate and rhythm - GI/Abdominal GI/Abdominal exam: Present: normal bowel sounds, distended (Less tight and improved since yesterday.), soft. Absent: guarding, tenderness, rebound - Extremities Exam Extremities exam: Present: normal inspection - Neurological Exam Neurological exam: Present: alert, oriented X3 - Psychiatric Psychiatric exam: Present: normal affect, normal mood - Skin Skin exam: Present: warm Results - Labs CBC & BMP: 03/21/17 02:56 03/20/17 04:29 Specialty Discharge - Follow Up or Referrals Follow up with: Sheng Goodman MD [Physician] - 2 Weeks (2 weeks after discharge with ECG.)
[2017-03-22] MEDS: ERYTHROMYCIN BASE 250 MG TABLET PO SCH ×3 (11:33→21:32)
[2017-03-22] MEDS: ATORVASTATIN 40 MG TABLET PO SCH (21:32)
[2017-03-23 05:25] LABS: Basophils # 0.1 10*3/uL (0.0-0.2); Basophils % 0.9 % (0.0-0.8); Eosinophils # 0.4 10*3/uL (0.0-0.87); Eosinophils % 4.3 % (0.00-10.9); Hematocrit 31.9 VOL% (42.0-52.0); Hemoglobin 10.9 GM/DL (14.0-18.0); Immature Granulocytes % 0.7 %; Immature Granulocytes Absolute 0.06 #; Lymphocytes # 1.9 10*3/uL (1.4-4.0); Lymphocytes % 23.2 % (21.2-54.2); Mean Corpuscular HGB Conc 34.2 GM/DL (32-36); Mean Corpuscular Hemoglobin 30 PG (27-34); Mean Corpuscular Volume 87.9 FL (87-102); Monocytes # 1.1 10*3/uL (0.11-0.8); Monocytes % 13.9 % (1.7-12.7); Neutrophils # 4.7 10*3/uL (1.4-7.4); Platelet Count 448 T/CUMM (130-400); Red Blood Count 3.63 MC/CUMM (3.8-5.5); White Blood Count 8.2 T/CUMM (4-12)
[2017-03-23 06:22] LABS: Eosinophils 4 % (0-10); Lymphocytes 23 % (20-55); Segmented Neutrophils 62 % (50-85); Total Cells Counted 100
[2017-03-23 06:23] LABS: Hypochromasia Slight; Ovalocytes Slight; Platelet Estimate Adequate
[2017-03-23] MEDS: ERYTHROMYCIN BASE 250 MG TABLET PO SCH ×4 (08:20→21:32)
[2017-03-23] MEDS: CETIRIZINE 10 MG TABLET PO SCH (08:20)
[2017-03-23] MEDS: ASPIRIN EC 81 MG TABLET PO SCH (08:20)
[2017-03-23] MEDS: CARVEDILOL 6.25 MG TABLET PO SCH ×2 (08:20→16:46)
--- NOTE | 2017-03-23 08:32 | General Surgery Progress Note ---
Assessment and Plan (1) Ileus Status: Acute Assessment and plan: I check back in with the patient today and he seems better. It is unlikely that any surgery will be needed but please call back if he worsens. Current Visit: Yes Subjective Patient reports: Present: no new complaints, feels better, tolerating liquids well, flatus, bowel movement, afebrile Narrative: The patient had a colonoscopy on Thursday. His NG tube has been removed over the weekend and he is tolerating liquids. He is passing gas and having bowel movements and feels much better than he did last week Exam - Constitutional Vitals: Period Temp Pulse Resp BP Sys/Schmitt Pulse Ox Last 24 Hr 97.4 F-98.2 F 72-87 18-20 116-140/72-84 93-96 General appearance: no acute distress, over weight - Head Head exam: Present: normal inspection, normocephalic - Eye Eye exam: Present: EOMI Pupils: Present: TERESA - ENT ENT exam: Present: normal exam Mouth exam: Present: normal external inspection, normal voice - Neck Neck exam: Present: normal inspection, trachea midline - Respiratory Respiratory exam: Present: clear to auscultation bilaterally. Absent: accessory muscle use, chest wall tenderness - Cardiovascular Cardiovascular exam: Present: RRR. Absent: systolic murmur, tachycardia - GI/Abdominal GI/Abdominal exam: Present: normal bowel sounds, distended (Less distended than prior), soft. Absent: tenderness, rebound - Extremities Exam Extremities exam: Present: normal inspection, normal capillary refill - Back Exam Back exam: Present: normal inspection - Neurological Exam Neurological exam: Present: alert, oriented X3 Speech: Present: normal - Skin Skin exam: Present: normal color, warm Results - Labs CBC & BMP: 03/23/17 04:49 03/20/17 04:29 Quality Measures - VTE Contraindication to Pharmacological VTE Prophylaxis: Clinical assessment deems Pt at low risk, no prophalaxis needed Specialty Discharge - Follow Up or Referrals Follow up with: Sheng Goodman MD [Physician] - 2 Weeks (2 weeks after discharge with ECG.)
[2017-03-23] MEDS: METHYLNALTREXONE 12 MG/0.6 ML VIAL SUBCUT SCH (11:53)
--- NOTE | 2017-03-23 14:47 | Gastrointestinal Progress Note ---
Assessment and Plan (1) Colonic pseudoobstruction Status: Acute Assessment and plan: The patient has a colonoscopy that demonstrates dilation from one end to the other without evidence of obstruction consistent with colonic pseudoobstruction , this occurred post CABG and may be transient. The patient is failed Reglan at this point we will go ahead and try erythromycin and see if this does any better for him. If his NG tube outputs are low over the weekend we could consider giving him a low residue cardiac diet potentially. 03/21/17--The patient is tolerating the erythromycin adequately but this does not appear to be emptying his colon as expected. Colonoscopy demonstrated the pseudoobstruction yesterday and the patient is empty. He has had a few loose stools but seems back to retaining bowel movements as previous. I think I will try a clear liquid diet to see if stimulate him with oral intake will help with the above ileus/colonic pseudoobstruction. Electrolytes previously well controlled. White blood cell count continues to improve. 03/22/17--the patient is tolerating his clear liquids well with the NG tube clamped. He had 2 further bowel movements yesterday though both of these were watery is really not had anything solid to eat for days. He is hesitant about advancing his diet to something more solid and I agree with his caution. We will discontinue his IV fluids and encouraged him to eat and drink clear liquids today. I will switch him over to p.o. erythromycin and continue him on the Relistor subcutaneous injections. This is something he can administer himself when he goes home. I doubt that he will need them longer than a month. He should be encouraged to ambulate and will observe and see how he does. Potential discharge tomorrow if he is doing all right. 03/23/17--He seems to be tolerating the solid soft diet well. He is still passing great deal of gas. He seems to be doing well on the Relistor in combination with the erythromycin. I have written prescriptions for both these medications. The patient will need to use a TB syringe to draw up with a Relistor for use at home. It might be helpful at the nurses demonstrated to him how to administer this medication. Current Visit: Yes (2) Ileus, unspecified Status: Acute Assessment and plan: The patient has an overall GI tract hypomotility noted here. I am not completely convinced there is not some low colonic obstruction that is producing the above changes however the patient was also kept on narcotics did receive a fair amount of lactulose which may have added to the gaseous distention of the colon and the small bowel. We will first start by giving this patient enemas every 4 hours for for a period 24 hours to see if this will cause the colon to "open up" appropriately. If this fails, we may need to perform an unprepped flex sig in order to establish that there is no colon cancer present producing a low obstruction. If this proves to be colonic pseudoobstruction we may consider use of neostigmine as a final purgative. This will need to be done on telemetry in order to watch for bradycardia. Agree with the NG tube for the current ileus. We will continue to watch the patient's NG tube output. 03/19/17--The poor response to enemas and discontinuation of the patient's narcotics, we will go ahead and perform unprepped flexible sigmoidoscopy to rule out a low GI tract lesion that might be producing obstruction. This will take place tomorrow morning. 03/20/17--The patient has been off of his narcotics, and on Reglan with relatively little benefit. Colonoscopy demonstrated colonic pseudoobstruction but no actual obstruction, polyps, ischemia, colitis or other changes. We will try erythromycin at this point to discontinue the Reglan. 03/21/17--I think at this point will try some Relistor at 12 mg per day and see if this helps out with his underlying constipation issues. I think it is at least worth a 1 to 2 day trial for efficacy. We can always consider doing the neostigmine if necessary. 03/22/17--This appears to be doing better at this point, will hold off on the neostigmine but continue the erythromycin/Relistor. 03/23/17--doing well on the erythromycin/Relistor combination. He could certainly be discharged home at this time-- will sign off the case. I have written a prescription for the Relistor, erythromycin, as well as the supplies needed to administer the Relistor which include a box of TB syringes 2 inch tape , 2 x 2 gauze, and alcohol pads. Current Visit: Yes (3) Anemia Status: Acute Assessment and plan: Continue to observe the patient's hematocrit, we will also monitor the patient' s white blood cell count to see if this continues to elevate. 03/19/17--The patient's white blood cell count has now peaked and is starting to come back to the 11 range. We will continue to monitor this and the anemia. The hematocrit remained stable at 33%. 03/22/17--We will check the patient's CBC again tomorrow, no bleeding source seen in the GI tract thus far. 03/23/17-- The patient's hematocrit is stable at 31%, please contact me if I can be of further help. The patient can follow-up in my office as needed in the future. Current Visit: No Gastroenterology - PN: Subj Interval history: Patient is doing better now tolerating a soft solid diet, still passing great deal of gas. At this point is unclear whether it is the erythromycin helping of the Relistor but will continue both for approximately a month as the patient' s intestines adapt post surgery. From my standpoint he can certainly be discharged. Exam (Progress Note) - Constitutional Vitals: Period Temp Pulse Resp BP Sys/Schmitt Pulse Ox Last 24 Hr 97.1 F-98.2 F 72-87 18-20 124-140/72-84 93-97 General appearance: no acute distress - Head Head exam: Present: normocephalic - Eye Eye exam: Present: EOMI - Respiratory Respiratory exam: Present: clear to auscultation bilaterally. Absent: rhonchi, stridor, wheezes - Cardiovascular Cardiovascular exam: Present: regular rate and rhythm - GI/Abdominal GI/Abdominal exam: Present: normal bowel sounds, distended, tenderness, soft. Absent: guarding, rebound - Extremities Exam Extremities exam: Present: normal inspection. Absent: edema - Neurological Exam Neurological exam: Present: alert, oriented X3 - Psychiatric Psychiatric exam: Present: normal affect, normal mood - Skin Skin exam: Present: warm Results - Labs CBC & BMP: 03/23/17 04:49 03/20/17 04:29 Specialty Discharge - Follow Up or Referrals Follow up with: Sheng Goodman MD [Physician] - 2 Weeks (2 weeks after discharge with ECG.)
--- NOTE | 2017-03-23 17:33 | Discharge Summary ---
Hospital Course - Hospital Course Hospital Course: 57 year old male who had a CABG last Thursday that was uneventful and is readmitted to the hospital with abdominal distention and pain and lack of bowel movement or flatus. The patient has never had problems like this before. The patient has a colonoscopy that demonstrates dilation from one end to the other without evidence of obstruction consistent with colonic pseudoobstruction, this occurred post CABG and may be transient. He seems to be doing well on the Relistor in combination with the erythromycin. GI have written prescriptions for both these medications. He failed Reglan treatment. The patient will need to use a TB syringe to draw up with a Relistor for use at home. Specialty Discharge - Follow Up or Referrals Follow up with: Sheng Goodman MD [Physician] - 2 Weeks (2 weeks after discharge with ECG.) Discharge Plan - Discharge Medications No Action Aspirin EC Tab 81 mg PO DAILY Atorvastatin [Lipitor] 40 mg PO BEDTIME #30 tablet Cetirizine Tab [ZyrTEC Tab] 10 mg PO DAILY Polyethylene Glycol Powder [Miralax] 17 gm PO BID Carvedilol [Coreg] 6.25 mg PO BID #60 tablet Docusate Sodium Cap [Colace Cap] 100 mg PO DAILY #30 capsule Bisacodyl Tab [Dulcolax Tab] 5 mg PO QPM Levofloxacin Tab [Levaquin Tab] 500 mg PO DAILY - Follow Up or Referral Follow Up: Sheng Goodman MD [Physician] - 2 Weeks (2 weeks after discharge with ECG.) - Forms/Instructions Exam - Constitutional Vitals: Period Temp Pulse Resp BP Sys/Schmitt Pulse Ox Last 24 Hr 97.1 F-98.2 F 74-87 20-20 124-140/72-84 93-97 Discharge Results Labs on day of discharge: Labs from last 24 hours 03/23/17 04:49 WBC 8.2 RBC 3.63 L Hgb 10.9 L Hct 31.9 L MCV 87.9 MCH 30 MCHC 34.2 RDW 12.0 Plt Count 448 H MPV 10.0 Neut % (Auto) 57.0 Lymph % (Auto) 23.2 [place] % (Auto) 13.9 H Eos % (Auto) 4.3 Baso % (Auto) 0.9 H Neut # (Auto) 4.7 Lymph # (Auto) 1.9 [place] # (Auto) 1.1 H Eos # (Auto) 0.4 Baso # (Auto) 0.1 Total Counted 100 Immature Gran % 0.7 Nucleated RBC % 0.0 Immature Gran # 0.06 Segmented Neutrophils 62 Lymphocytes 23 Monocytes 11 Eosinophils 4 Nucleated RBCs # 0.00 Platelet Estimate Adequate Hypochromasia Slight Ovalocytes Slight Morphology Comment DS: Provider Date of admission: 03/16/17 11:36 Primary care physician: MARY KAY Sweet Attending physician on admission: Kwan Lester Jr., MD Consults: 03/16/17 11:40 Consult to Physician [CONS] Routine Comment: Consulting Provider: Alfie Estrada When should Consulting Provider be notified: Now Person Notified: [place] Date Notified: 03/16/17 Time Notified: 12:52 03/17/17 19:16 Consult to Physician [CONS] Routine Comment: Consulting Provider: Herb Thomas Consult to Specialist Group: Surgery When should Consulting Provider be notified: Now Date Notified: 03/17/17 Time Notified: 19:30 Consult Notification Comment: dr thomas notified Discharging clinician: Yosef Oshea MD
--- NOTE | 2017-03-23 17:38 | Hospitalist Progress Note ---
Assessment and Plan (1) Colonic pseudoobstruction Status: Acute Assessment and plan: Pt seems to be doing well on the Relistor in combination with the erythromycin. Current Visit: Yes (2) Ileus Status: Acute Assessment and plan: Doing well on the erythromycin/Relistor combination, continue. Current Visit: Yes Hospitalist: Subjective Interval history: 57 year old male who had a CABG last Jhonny that was uneventful and is readmitted to the hospital with abdominal distention and pain and lack of bowel movement or flatus. The patient has never had problems like this before. The patient has a colonoscopy that demonstrates dilation from one end to the other without evidence of obstruction consistent with colonic pseudoobstruction, this occurred post CABG and may be transient. He seems to be doing well on the Relistor in combination with the erythromycin. GI have written prescriptions for both these medications. He failed Reglan treatment. The patient will need to use a TB syringe to draw up with a Relistor for use at home. Exam - Constitutional Vitals: Period Temp Pulse Resp BP Sys/Schmitt Pulse Ox Last 24 Hr 97.1 F-98.2 F 74-87 20-20 124-140/72-84 93-97 General appearance: no acute distress - Head Head exam: Present: normal inspection, normocephalic, atraumatic - Eye Eye exam: Present: EOMI Pupils: Present: TERESA - ENT ENT exam: Present: normal exam - Neck Neck exam: Present: normal inspection - Respiratory Respiratory exam: Present: clear to auscultation bilaterally - Cardiovascular Cardiovascular exam: Present: regular rate and rhythm - GI/Abdominal GI/Abdominal exam: Present: normal bowel sounds - Extremities Exam Extremities exam: Present: normal inspection, normal capillary refill Results - Labs CBC & BMP: 03/23/17 04:49 03/20/17 04:29 Quality Measures - VTE Contraindication to Pharmacological VTE Prophylaxis: Clinical assessment deems Pt at low risk, no prophalaxis needed Specialty Discharge - Follow Up or Referrals Follow up with: Sheng Goodman MD [Physician] - 2 Weeks (2 weeks after discharge with ECG.)
[2017-03-23] MEDS: ATORVASTATIN 40 MG TABLET PO SCH (21:32)
[2017-03-24] MEDS: ASPIRIN EC 81 MG TABLET PO SCH (09:48)
[2017-03-24] MEDS: ERYTHROMYCIN BASE 250 MG TABLET PO SCH ×4 (09:48→20:43)
[2017-03-24] MEDS: CARVEDILOL 6.25 MG TABLET PO SCH ×2 (09:48→16:54)
[2017-03-24] MEDS: CETIRIZINE 10 MG TABLET PO SCH (09:48)
[2017-03-24] MEDS: METHYLNALTREXONE 12 MG/0.6 ML VIAL SUBCUT SCH (09:49)
--- NOTE | 2017-03-24 18:58 | Hospitalist Progress Note ---
Assessment and Plan (1) Colonic pseudoobstruction Status: Acute Assessment and plan: Pt seems to be doing well on the Relistor in combination with the erythromycin. Current Visit: Yes (2) Ileus Status: Acute Assessment and plan: Doing well on the erythromycin/Relistor combination, continue. Current Visit: Yes Hospitalist: Subjective Interval history: 57 year old male who had a CABG last Jhonny that was uneventful and is readmitted to the hospital with abdominal distention and pain and lack of bowel movement or flatus. The patient has never had problems like this before. The patient has a colonoscopy that demonstrates dilation from one end to the other without evidence of obstruction consistent with colonic pseudoobstruction, this occurred post CABG and may be transient. He seems to be doing well on the Relistor in combination with the erythromycin. GI have written prescriptions for both these medications. He failed Reglan treatment. The patient will need to use a TB syringe to draw up with a Relistor for use at home. Subjective: Pt states that he is passing gas but not stooled yet. Exam - Constitutional Vitals: Period Temp Pulse Resp BP Sys/Schmitt Pulse Ox Last 24 Hr 96.6 F-98 F 67-86 16-20 114-131/63-77 93-98 Exam: General: [No Acute Distress] HEENT: [Normocephalic, atraumatic, Extra ocular movements intact] Neck: [Supple, No JVD] Chest: [Clear to auscultation B/L] CV: [S1 + S2 audible without murmur, gallop or rub] Abd: [soft, NT, Non-distended, BS +] Ext: [No edema] Skin: [No purpura, bruising or rash] Rheumatologic: [No Joint deformities] Neurologic: [Strengtg 5/5 all extremities, no gross sensory deficits] Results - Labs CBC & BMP: 03/23/17 04:49 03/20/17 04:29 - Impressions Assessment and Plan (1) Colonic pseudoobstruction Status: Acute Assessment and plan: Pt is on Relistor in combination with the erythromycin. Current Visit: Yes (2) Ileus Status: Acute Assessment and plan: Patient states that he is passing gas but has not stooled yet. We will check a KUB Current Visit: Yes Quality Measures - VTE Contraindication to Pharmacological VTE Prophylaxis: Clinical assessment deems Pt at low risk, no prophalaxis needed Specialty Discharge - Follow Up or Referrals Follow up with: Sheng Goodman MD [Physician] - 2 Weeks (2 weeks after discharge with ECG.)
[2017-03-24] MEDS ORDERED: DOCUSATE SODIUM 100 MG CAPSULE PO PRN (19:01)
--- NOTE | 2017-03-24 20:23 | XRay Report ---
XR KUB Indication: Ileus Comparison: Abdominal x-ray dated March 18, 2017 Technique: Frontal views of the abdomen Findings: There is mild diffuse dilatation of large and small bowel which appears improved from comparison exam suggesting improved ileus. Visualized osseous and surrounding soft tissue structures appear grossly unchanged. Small left pleural fluid. IMPRESSION: Mildly improved ileus. PROCEDURE INTERPRETED AT [facility] DEPARTMENT OF RADIOLOGY Final Report Signed by: Dr Kelechi Salazar
[2017-03-24] MEDS: ATORVASTATIN 40 MG TABLET PO SCH (20:43)
[2017-03-25 02:47] LABS: Calcium 8.3 MG/DL (8.5-10.1); Osmolality,Calculated 274.5 MOS/KG (273-304); Potassium 3.7 MMOL/L (3.5-5.1)
[2017-03-25] MEDS: CARVEDILOL 6.25 MG TABLET PO SCH (08:18)
[2017-03-25] MEDS: ASPIRIN EC 81 MG TABLET PO SCH (08:18)
[2017-03-25] MEDS: ERYTHROMYCIN BASE 250 MG TABLET PO SCH ×2 (08:19→11:10)
[2017-03-25] MEDS ORDERED: POLYETHYLENE GLYCOL POWDER 17 GM PACK PO SCH (09:00)
[2017-03-25] MEDS: METHYLNALTREXONE 12 MG/0.6 ML VIAL SUBCUT SCH (11:08)
[2017-03-25] MEDS: CETIRIZINE 10 MG TABLET PO SCH (11:10)
--- NOTE | 2017-03-25 15:08 | Discharge Summary ---
Hospital Course - Hospital Course Hospital Course: 57 year old male who had a CABG recentlythat was uneventful and is readmitted to the hospital with abdominal distention and pain and lack of bowel movement or flatus due to postoperative ileus . The patient has never had problems like this before. The patient has a colonoscopy that demonstrates dilation from one end to the other without evidence of obstruction consistent with colonic pseudoobstruction, this occurred post CABG and may be transient. GI service was following the patient during hospitalization . He seems to be doing well on the Relistor in combination with the erythromycin, although he does have some residual ileus. GI have written prescriptions for both these medications. He failed Reglan treatment. The patient will need to use a TB syringe to draw up with a Relistor for use at home. He is moving his bowels some but does understand that in some patients ileus can be little prolonged but ultimately resolves. He will continue to take medications at home. Serial KUBs show some ileus but continued improvement. Otherwise reached maximal hospital benefit, and continue the rest of his treatment at home. Will continue follow-up with his primary care physician as well as his consultants. - Time spent with patient Time with patient DS: Less than 30 minutes Diagnosis - Discharge Diagnosis (1) Colonic pseudoobstruction Status: Acute (2) Ileus Status: Acute Specialty Discharge - Follow Up or Referrals Follow up with: Sheng Goodman MD [Physician] - 2 Weeks (2 weeks after discharge with ECG.) Discharge Plan - Discharge Data Condition at Discharge: Stable Discharge Diet: advance to your usual diet Activity: resume usual activities as tolerated Hygiene: no restrictions Weight Bearing at Discharge: full weight bearing Driving: no restrictions Contact your physician if you experience:: fever over 101, Difficulty voiding, Redness or swelling, Nausea/Vomiting, Shortness of breath, pain uncontrolled by pain medications - Discharge Medications New Docusate Sodium Cap [Colace Cap] 100 mg PO BID PRN #60 capsule PRN Reason: Constipation Erythromycin Base 250 mg PO ACHS #0 tablet Continue Aspirin EC Tab 81 mg PO DAILY Cetirizine Tab [ZyrTEC Tab] 10 mg PO DAILY Polyethylene Glycol Powder [Miralax] 17 gm PO BID Carvedilol [Coreg] 6.25 mg PO BID #60 tablet Bisacodyl Tab [Dulcolax Tab] 5 mg PO QPM Discontinued Atorvastatin [Lipitor] 40 mg PO BEDTIME #30 tablet Docusate Sodium Cap [Colace Cap] 100 mg PO DAILY #30 capsule Levofloxacin Tab [Levaquin Tab] 500 mg PO DAILY - Follow Up or Referral Follow Up: Sheng Goodman MD [Physician] - 2 Weeks (2 weeks after discharge with ECG.) - Forms/Instructions Exam - Constitutional Vitals: Period Temp Pulse Resp BP Sys/Schmitt Pulse Ox Last 24 Hr 96.7 F-97.6 F 66-73 20-20 120-131/66-80 93-98 Exam: General: [No Acute Distress] HEENT: [Normocephalic, atraumatic, Extra ocular movements intact] Neck: [Supple, No JVD] Chest: [Clear to auscultation B/L] CV: [S1 + S2 audible without murmur, gallop or rub] Abd: [soft, NT, Non-distended, BS +] Ext: [No edema] Skin: [No purpura, bruising or rash] Rheumatologic: [No Joint deformities] Neurologic: [Strengtg 5/5 all extremities, no gross sensory deficits] Discharge Results Labs on day of discharge: Labs from last 24 hours 03/25/17 01:54 Sodium 139 Potassium 3.7 Chloride 103 Carbon Dioxide 27 Anion Gap 12.7 BUN 6 L Creatinine 0.50 L GFR Calculation 158 BUN/Creatinine Ratio 12.00 Glucose 98 Calculated Osmolality 274.5 Calcium 8.3 L Magnesium 2.0 DS: Provider Date of admission: 03/16/17 11:36 Primary care physician: MARY KAY Sweet Attending physician on admission: Kwan Lester Jr., MD Consults: 03/16/17 11:40 Consult to Physician [CONS] Routine Comment: Consulting Provider: Alfie Estrada When should Consulting Provider be notified: Now Person Notified: [place] Date Notified: 03/16/17 Time Notified: 12:52 03/17/17 19:16 Consult to Physician [CONS] Routine Comment: Consulting Provider: Herb Thomas Consult to Specialist Group: Surgery When should Consulting Provider be notified: Now Date Notified: 03/17/17 Time Notified: 19:30 Consult Notification Comment: dr thomas notified Discharging clinician: Yosef Oshea MD
[2017-03-25 16:05] VITALS: BP 126/70
--- NOTE | 2017-03-30 15:44 | Physician Query Form ---
CLICK EDIT DOCUMENT TO SELECT QUERY ANSWER --> OK --> SIGN Amanda Temple RN [employer] W) [phone] (f) [phone] [email or web address]: Make your selection(s) from the choices in EACH section by typing an "x" and enter comments in the comment section. Please use your independent medical judgment in providing your response. This request does not imply that any particular answer is desired or expected. CLINICAL INDICATORS: (Providers should not edit this section) Based on documentation of "Had a CABG on March 06 and has not had a BM on his own since" "Acute Ileus" Colonoscopy done. Based on the above, could you clarify the appropriate diagnosis, if significant , that supports the above abnormalities and additional evaluation, monitoring, and/or treatment rendered: ( ) Ileus is a Complication of Recent CABG (x ) Ileus is NOT a Complication of Recent CABG ( ) Other, please specify: ( ) Clinically unable to determine COMMENTS: PLEASE ALSO DOCUMENT RESPONSE IN PROGRESS NOTES AND/OR DISCHARGE SUMMARY Use of terms such as suspected, likely, or probable (associated with a specific diagnosis that is being evaluated, monitored, or treated as if it exists) are acceptable and can be restated in the discharge summary if not ruled out. MTDD
== END 2017-03-25 15:50 | disposition home or self-care (01) | DRG 389 ==
LOC: N.ED 07:48 → SUATTDRO 11:36 → N.EDINP 11:36 → N.2E 12:15
PROVIDERS: ADMIT Internal Medicine Nephrology; ATTEND Hospitalist

== ENCOUNTER 2019-11-13 10:59 | Observation (INO) ==
[2019-11-13] MEDS ORDERED: MORPHINE 4 MG/1 ML VIAL IV PRN (12:52)
[2019-11-13] MEDS: CLINDAMYCIN INJ 900 MG in PREMIX 1 EACH IV SCH ×2 (14:30→19:38)
[2019-11-13] MEDS ORDERED: ATORVASTATIN 40 MG TABLET PO SCH (21:00)
[2019-11-13] MEDS: carvediloL 6.25 MG TABLET PO SCH (21:24)
[2019-11-14] MEDS: CLINDAMYCIN INJ 900 MG in PREMIX 1 EACH IV SCH ×4 (01:20→19:37)
[2019-11-14 05:26] LABS: Basophils # 0.1 10*3/uL (0.0-0.2); Basophils % 0.5 % (0.0-0.8); Eosinophils # 0.2 10*3/uL (0.0-0.87); Eosinophils % 2.2 % (0.00-10.9); Hematocrit 35.3 VOL% (42.0-52.0); Hemoglobin 11.4 GM/DL (14.0-18.0); Immature Granulocytes % 0.4 %; Immature Granulocytes Absolute 0.04 #; Lymphocytes # 1.9 10*3/uL (1.4-4.0); Lymphocytes % 17.2 % (21.2-54.2); Mean Corpuscular HGB Conc 32.3 GM/DL (32-36); Mean Corpuscular Volume 95.7 FL (87-102); Mean Platelet Volume 9.4 FL (9.6-12.0); Monocytes % 17.4 % (1.7-12.7); Neutrophils % 62.3 % (38.7-73.9); Platelet Count 241 T/CUMM (130-400); Red Blood Count 3.69 MC/CUMM (3.8-5.5); Red Cell Distribution Width 11.6 % (9.3-17.3); White Blood Count 10.9 T/CUMM (4-12)
[2019-11-14 05:46] LABS: Osmolality,Calculated 268.2 MOS/KG (273-304)
[2019-11-14 06:39] LABS: Eosinophils 3 % (0-10); Lymphocytes 21 % (20-55); Platelet Estimate Adequate; Segmented Neutrophils 58 % (50-85); Total Cells Counted 100
[2019-11-14 06:40] LABS: Hypochromasia Slight; Ovalocytes Slight
[2019-11-14] MEDS ORDERED: BUPIVACAINE MPF 0.25% 30 ML VIAL ONE (07:19)
[2019-11-14] MEDS ORDERED: LACTATED RINGERS 1,000 ML IV SCH (07:30)
[2019-11-14] MEDS ORDERED: MIDAZOLAM 2 MG/2 ML VIAL ONE (08:22)
[2019-11-14] MEDS ORDERED: LIDOCAINE 2% 5 ML VIAL ONE (08:22)
[2019-11-14] MEDS ORDERED: SEVOFLURANE 1 UNIT/15 MINUTE INH ONE (08:22)
[2019-11-14] MEDS ORDERED: propofoL 200 MG/20 ML VIAL IV ONE (08:22)
[2019-11-14] MEDS ORDERED: PHENYLEPHRINE 1 MG/10 ML SYRINGE IV ONE (08:23)
[2019-11-14] MEDS ORDERED: SUCCINYLCHOLINE 200 MG/10 ML VIAL ONE (08:23)
[2019-11-14] MEDS ORDERED: ONDANSETRON 4 MG/2 ML VIAL ONE (08:23)
[2019-11-14] MEDS ORDERED: ROCURONIUM 100 MG/10 ML VIAL IV ONE (08:23)
[2019-11-14] MEDS ORDERED: fentaNYL 100 MCG/2 ML VIAL ONE (08:23)
[2019-11-14] MEDS ORDERED: ACETAMINOPHEN 1,000 MG/100 ML VIAL IV ONE (08:23)
[2019-11-14] MEDS ORDERED: CETIRIZINE 10 MG TABLET PO SCH (09:00)
[2019-11-14] MEDS ORDERED: ASPIRIN EC 81 MG TABLET PO SCH (09:00)
[2019-11-14] MEDS ORDERED: ONDANSETRON 4 MG/2 ML VIAL IV PRN (09:18)
[2019-11-14] MEDS: carvediloL 6.25 MG TABLET PO SCH ×2 (09:37→21:42)
[2019-11-14] MEDS ORDERED: KETOROLAC 15 MG/1 ML VIAL IV PRN (12:19)
[2019-11-14] MEDS ORDERED: ACETAMINOPHEN 325 MG TABLET PO PRN (12:19)
[2019-11-14] MEDS ORDERED: BISACODYL 5 MG TABLET PO PRN (12:19)
[2019-11-14] MEDS ORDERED: HYDROmorphone 2 MG/1 ML VIAL IV PRN (12:19)
[2019-11-14] MEDS ORDERED: ALBUTEROL/IPRATROPIUM 3 ML NEB RESP TX PRN (12:19)
[2019-11-14] MEDS ORDERED: ATORVASTATIN 40 MG TABLET PO SCH (21:00)
[2019-11-15] MEDS: CLINDAMYCIN INJ 900 MG in PREMIX 1 EACH IV SCH ×3 (01:16→12:21)
[2019-11-15] MEDS: carvediloL 6.25 MG TABLET PO SCH (08:56)
[2019-11-15] MEDS ORDERED: PANTOPRAZOLE 40 MG TABLET PO SCH (09:00)
[2019-11-15] MEDS ORDERED: ASPIRIN EC 81 MG TABLET PO SCH (09:00)
[2019-11-15] MEDS ORDERED: CETIRIZINE 10 MG TABLET PO SCH (09:00)
[2019-11-15 11:29] VITALS: BP 97/51
== END 2019-11-15 15:35 | disposition home health service (06) ==
LOC: PREOBSVTOIN 11:05 → INTOOBSV 12:21 → N.3E 12:21
PROVIDERS: ADMIT Surgery; ATTEND Surgery